=== PATIENT | female | born 1985 | race Caucasian/White ===

== ENCOUNTER 2020-06-27 14:58 | Outpatient (REF) | payer OTHER, SELFPAY | END 2020-06-27 14:59 | disposition home or self-care (01) | LOC: HO.HMGCLDS 14:58 | PROVIDERS: PCP Internal Medicine; Visit Provider Internal Medicine | DX: Z20.828 Contact with and (suspected) exposure to other viral communicable diseases (principal) | CPT/HCPCS: C9803; U0003 ==

== ENCOUNTER 2020-07-24 15:26 | Outpatient (REF) | payer OTHER, SELFPAY | END 2020-07-24 15:27 | disposition home or self-care (01) | LOC: HO.LAB 15:26 | PROVIDERS: Visit Provider Internal Medicine | DX: Z20.828 Contact with and (suspected) exposure to other viral communicable diseases (principal) | CPT/HCPCS: C9803; U0003 ==

== ENCOUNTER 2020-12-04 11:26 | Outpatient (REF) | payer OTHER, SELFPAY ==
[2020-12-05 03:36] LABS: CT PCR NOT DETECTED (Not Detect.); NG PCR NOT DETECTED (Not Detect.)
[2020-12-11 03:52] LABS: HPV mRNA E6/E7 rflx Not Detected (Not Detected)
== END 2020-12-04 11:27 | disposition home or self-care (01) ==
LOC: HO.LAB 11:26
PROVIDERS: Visit Provider Advanced Practice Midwife
DX: Z01.419 Encounter for gynecological examination (general) (routine) without abnormal findings (principal); Z11.3 Encounter for screening for infections with a predominantly sexual mode of transmission; Z11.51 Encounter for screening for human papillomavirus (HPV)
CPT/HCPCS: 87491; 87591; 87624; 88142

== ENCOUNTER 2020-12-23 09:33 | Emergency (ER) | payer OTHER, SELFPAY ==
--- NOTE | ~2020-12-23 | US_ITS ---
EXAMINATION: US ABDOMEN LIMITED CLINICAL INFORMATION: Abdominal pain. Possible gallbladder disease. COMPARISON: None TECHNIQUE: Real-time imaging of the right upper quadrant abdominal viscera. FINDINGS: PANCREAS: Obscured by bowel gas and not imaged. LIVER: Normal in size and smooth in contour. Hepatic parenchymal echogenicity is within limits of normal and homogeneous. There is no focal hepatic parenchymal lesion. No intrahepatic biliary ductal dilatation. Color Doppler shows portal flow towards the liver. GALLBLADDER: There are specular echoes in the region of the gallbladder fossa with strong posterior acoustic shadowing suggesting gallstone filled gallbladder. Short portion anterior gallbladder wall partially visualized and within normal caliber. Otherwise, gallbladder is not identified due to the shadowing. COMMON BILE DUCT: Normal in caliber measuring 0.3 cm in diameter. RIGHT KIDNEY: Normal. No hydronephrosis. No renal calculi or focal parenchymal lesions. The kidney measures 10.1 cm in maximum dimension. FREE FLUID: None. US/US abdomen limited IMPRESSION: 1. Specular echoes in region of gallbladder fossa with strong posterior acoustic shadowing suggesting gallstones filled gallbladder. 2. No intrahepatic or extrahepatic ductal dilatation. 3. Unremarkable right kidney. 4. Pancreas obscured by bowel gas.
[2020-12-23 10:05] VITALS: BP 125/76; PULSE 72; RESP 13; TEMP 36.6; O2SAT 99; BMI 29.9
--- NOTE | 2020-12-23 10:30 | ED.ABDPAIN ---
HPI - Abdominal Pain General Chief Complaint: Abdominal Pain Stated Complaint: abd pain Time Seen by Provider: 12/23/20 10:28 Source: patient Mode of arrival: ambulatory Limitations: no limitations History of Present Illness HPI narrative: 35-year-old female came in for evaluation of abdominal pain. Pain started yesterday afternoon after ate at the restaurant with her friend, pain is localized to the upper abdomen, patient thinks that the pain is related to the food that she ate at the restaurant because the pain started shortly after. Describes the pain as constant moderate 7/10, sharp in character, did not try anything to make it better or worse, associated with nausea but no vomiting, patient had 1 time loose stool bowel movement but no marcus diarrhea, decreased p.o. intake, no other sick contacts, patient had no history of similar abdominal pain. Patient known to have history of gallbladder stone that she declined surgery for it. No dysuria, no frequency urination, no fever, no chills. No vaginal discharge. Related Data Home Medications Medication Instructions Recorded Confirmed buspirone 5 mg tablet 5 mg PO BID 06/27/20 12/04/20 Previous Rx's Medication Instructions Recorded bupropion HCl 150 mg 24 hr tablet, 150 mg PO QAM #90 tab 07/08/20 extended release omeprazole magnesium [Prilosec OTC] 20 mg PO BID #30 tab 12/23/20 Allergies Allergy/AdvReac Type Severity Reaction Status Date / Time No Known Allergies Allergy Verified 12/04/20 11:44 [No Known Allergies*] Review of Systems Review of Systems All other systems are reviewed and are negative Constitutional: Reports as per HPI and Reports no additional constitutional complaints Eyes: Reports as per HPI and Reports no additional eye complaints Reports system reviewed and no additional complaints, except as documented Cardiovascular: Reports as per HPI and Reports no additional cardiovascular complaints Respiratory: Reports as per HPI and Reports no additional respiratory complaints Gastrointestinal: Reports as per HPI and Reports no additional gastrointestinal complaints Genitourinary: Reports no additional female genitourinary complaints Musculoskeletal: Reports no additional musculoskeletal complaints Skin/Breast: Reports system reviewed and no additional complaints, except as docu Psychiatric: Reports no additional psychiatric complaints Endocrine: Reports no additional endocrine complaints Hematologic/Lymphatic: Reports no additional hematologic/lymphatic complaints Allergic/Immunologic: Reports no additional allergic/immunologic complaints Reports system reviewed and no additional complaints, except as documented and Reports Abnormal speech present Physical Exam Vital Signs: Vital Signs: Last Vital Signs Temp 98 F 12/23/20 10:05 Pulse 72 12/23/20 10:05 Resp 13 12/23/20 10:05 BP 125/76 12/23/20 10:05 Pulse Ox 99 12/23/20 10:05 Body Mass Index 29.9 Vital signs have been reviewed as appeared to be correct. Blood pressure normal. Heart rate normal. Respiration rate normal. Temperature normal. Oxygen saturation normal. Appearance: Alert. Oriented X3. No acute distress. Head: Normal external exam. Normocephalic. Atraumatic. No Cardenas signs noted. No raccoon eyes noted Eyes: PERRLA. EOMI. Conjunctiva and sclera normal. Eyelids normal. ENT: TM's Normal. Pharynx normal. Uvula midline. Moist mucous membranes. No trismus noted. No drooling noted. No muffled voice noted. Neck: Normal inspection. Neck supple. FROM. No adenopathy. Thyroid Normal. No meningeal signs. No neck mass noted. CVS: Normal heart rate and rhythm. Heart sound normal. No murmurs noted. Pulses normal throughout. Respiratory: No respiratory distress. Painless inspiration. Breath sounds normal. No wheezes/rales/rhonchi noted. Chest nontender. No accessory muscle usage noted or decreased air movement noted. Abdomen: Soft, obese, right upper quadrant/epigastric tenderness, no rebound tenderness, no guarding. Bowel sounds normal in all 4 quadrants. No distention noted. No organomegaly noted. No visible injury noted. Back: No CVA tenderness. Full range of motion noted. Skin: Skin warm and dry. Normal skin color. Normal skin turgor. No rashes/lesions/lacerations noted. Extremities: No lower extremity edema. Extremities exhibit normal range of motion. Extremities nontender. Neuro: Oriented X 3. No motor deficit. No sensory deficit. Reflexes normal. Course Course Course Narrative: Assessment and plan. 35-year-old female came in with upper epigastric/right upper abdominal pain after ate outside at a restaurant, mild nausea, and mild loose stool with no marcus diarrhea, has leukocytosis, ultrasound of upper abdomen showed cholelithiasis (patient is known to have history of gallbladder stones). Patient feels better with the pain, and nausea asking for food but patient would rather to go home then p.o. challenge. As discussed with the patient we will start the patient on Prilosec for possible food related gastritis, will also send the patient for GI outpatient consultation and surgical consultation. MDM - Abdominal Pain Lab Data Attestation: I reviewed the patient's lab results. Result diagrams: 12/23/20 10:38 12/23/20 10:38 Labs: Lab Results 12/23/20 12/23/20 12/23/20 Range/Units 10:38 10:38 10:38 WBC 12.9 H (4.8-10.8) X10*3/uL RBC 4.88 (4.20-5.50) X10*6/uL Hgb 14.6 (12.0-16.0) g/dl Hct 44.5 (37-47) % MCV 91.2 (80-98) fL MCH 29.9 (27.0-33.0) pg MCHC 32.8 (31.0-35.0) g/dl RDW 12.9 (11.0-16.0) % Plt Count 264 (160-400) X10*3/uL MPV 9.6 (9.4-12.3) fL Immature Gran % (Auto) 0.3 (0.0-0.4) % Neut % (Auto) 77.4 H (45-73) % Lymph % (Auto) 16.1 L (20-40) % [place] % (Auto) 4.9 (2-11) % Eos % (Auto) 1.1 (0-4) % Baso % (Auto) 0.2 (0-2) % Lymph # (Auto) 2.1 (1.2-4.9) X10*3/uL [place] # (Auto) 0.6 (0.1-1.2) X10*3/uL Eos # (Auto) 0.1 (0.0-0.4) X10*3/uL Baso # (Auto) 0.0 (0.0-0.2) X10*3/uL Abs Immat Gran (auto) 0.04 H (0.00-0.03) X10*3/uL Absolute Neuts (auto) 10.0 H (2.0-8.3) X10*3/uL Absolute Nucleated RBC 0.000 (0.0-0.012) X10*3/uL Nucleated RBC % (auto) 0.0 (0.0-0.2) /100WBC Sodium 140 (135-145) mmol/L Potassium 4.1 (3.3-5.1) mmol/L Chloride 108 (96-108) mmol/L Carbon Dioxide 25 (22-29) mmol/L Anion Gap 11 L (12-20) BUN 7 L (9-16) mg/dL Creatinine 0.81 (0.5-1.4) mg/dL Estim Creat Clear Calc 125.9 Estimated GFR > 60 Random Glucose 94 (60-115) mg/dL Calcium 8.9 (8.4-10.2) mg/dL Total Bilirubin 0.7 (0.0-1.0) mg/dL Direct Bilirubin 0.3 (0.0-0.5) mg/dL AST 13 (5-31) U/L ALT 14 (0-31) U/L Alkaline Phosphatase 57 (39-117) U/L Total Protein 6.7 (6.5-8.0) g/dL Albumin 4.0 (3.5-5.0) g/dL Lipase 7 L (8-78) U/L Urine Color YELLOW Urine Appearance HAZY Urine pH 6.0 (5.0-8.0) Ur Specific [place] >= 1.030 H (1.005-1.025) Urine Protein NEG (NEG-TRACE) MG/DL Urine Glucose (UA) NEG (NEG) MG/DL Urine Ketones NEG (NEG) MG/DL Urine Blood 1+ H (NEG) Urine Nitrite NEG (NEG) Ur Leukocyte Esterase NEG (NEG) Urine RBC 1-4 (0) /HPF Urine WBC 0 (0-4) /HPF Ur Squamous Epith Cells 1+ /LPF Urine Bacteria NONE /LPF Urine Mucus 1+ /LPF Urine Test (NEGATIVE) 12/23/20 Range/Units 10:38 WBC (4.8-10.8) X10*3/uL RBC (4.20-5.50) X10*6/uL Hgb (12.0-16.0) g/dl Hct (37-47) % MCV (80-98) fL MCH (27.0-33.0) pg MCHC (31.0-35.0) g/dl RDW (11.0-16.0) % Plt Count (160-400) X10*3/uL MPV (9.4-12.3) fL Immature Gran % (Auto) (0.0-0.4) % Neut % (Auto) (45-73) % Lymph % (Auto) (20-40) % [place] % (Auto) (2-11) % Eos % (Auto) (0-4) % Baso % (Auto) (0-2) % Lymph # (Auto) (1.2-4.9) X10*3/uL [place] # (Auto) (0.1-1.2) X10*3/uL Eos # (Auto) (0.0-0.4) X10*3/uL Baso # (Auto) (0.0-0.2) X10*3/uL Abs Immat Gran (auto) (0.00-0.03) X10*3/uL Absolute Neuts (auto) (2.0-8.3) X10*3/uL Absolute Nucleated RBC (0.0-0.012) X10*3/uL Nucleated RBC % (auto) (0.0-0.2) /100WBC Sodium (135-145) mmol/L Potassium (3.3-5.1) mmol/L Chloride (96-108) mmol/L Carbon Dioxide (22-29) mmol/L Anion Gap (12-20) BUN (9-16) mg/dL Creatinine (0.5-1.4) mg/dL Estim Creat Clear Calc Estimated GFR Random Glucose (60-115) mg/dL Calcium (8.4-10.2) mg/dL Total Bilirubin (0.0-1.0) mg/dL Direct Bilirubin (0.0-0.5) mg/dL AST (5-31) U/L ALT (0-31) U/L Alkaline Phosphatase (39-117) U/L Total Protein (6.5-8.0) g/dL Albumin (3.5-5.0) g/dL Lipase (8-78) U/L Urine Color Urine Appearance Urine pH (5.0-8.0) Ur Specific [place] (1.005-1.025) Urine Protein (NEG-TRACE) MG/DL Urine Glucose (UA) (NEG) MG/DL Urine Ketones (NEG) MG/DL Urine Blood (NEG) Urine Nitrite (NEG) Ur Leukocyte Esterase (NEG) Urine RBC (0) /HPF Urine WBC (0-4) /HPF Ur Squamous Epith Cells /LPF Urine Bacteria /LPF Urine Mucus /LPF Urine Test NEGATIVE (NEGATIVE) Imaging Data US - abdomen: Radiologist's impression: . Specular echoes in region of gallbladder fossa with strong posterior acoustic shadowing suggesting gallstones filled gallbladder. 2. No intrahepatic or extrahepatic ductal dilatation. 3. Unremarkable right kidney. 4. Pancreas obscured by bowel gas. Discharge Plan Discharge Clinical Impression: Gastritis Qualifiers: Gastritis type: unspecified gastritis Chronicity: acute Gastritis bleeding: without bleeding Qualified Code(s): K29.00 - Acute gastritis without bleeding Cholelithiasis Qualifiers: Cholelithiasis location: gallbladder Cholecystitis presence: without cholecystitis Biliary obstruction: without biliary obstruction Qualified Code(s): K80.20 - Calculus of gallbladder without cholecystitis without obstruction Patient Disposition: Home, Self-Care Instructions: Gastritis (ED), Gallstones (ED) Prescriptions: New omeprazole magnesium [Prilosec OTC] 20 mg tablet,delayed release (DR/EC) 20 mg PO BID Qty: 30 RF: 0 No Action bupropion HCl [Wellbutrin XL] 150 mg tablet extended release 24 hr 150 mg PO QAM Qty: 90 RF: 1 buspirone 5 mg tablet 5 mg PO BID RF: 0 Referrals: Mine Chen MD [Primary Care Provider] - 2 days Andrez Mancilla MD [Physician] - 2 days Farzad Parks MD [Physician] - 2 days [facility] Past Medical History Medical History Annual physical exam Cervical cancer screening Depression with anxiety Eczema Gallstones IUD check up depression Surgical History No pertinent past surgical history Family History Family History Father Bladder cancer Cancer of prostate Mother Breast cancer Sister Cervical cancer Social History Social History Household Members Other:: 2 children 11 and 5-year-old, 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 a day Alcohol intake: current Alcohol intake frequency: a few times a month Smoking Status: Current every day smoker Advance Directives: No Advance Directives Information Provided: No Patient : No Gender identity: female
[2020-12-23 10:42] LABS: MANUAL DIFF FLAG NO
[2020-12-23] MEDS: Famotidine/PF 20 MG/2 ML VIAL IVPUSH (10:43)
[2020-12-23] MEDS: Magnesium Hydrox/Alum Hydrox 30 ML ORAL.SUSP PO (10:43)
[2020-12-23] MEDS: ondansetron HCL 4 MG/2 ML VIAL IVPUSH (10:43)
[2020-12-23 10:46] LABS: Basophils Percent Auto 0.2 % (0-2); Eosinophils Absolute Auto 0.1 X10*3/uL (0.0-0.4); Eosinophils Percent Auto 1.1 % (0-4); Hematocrit 44.5 % (37-47); Hemoglobin 14.6 g/dl (12.0-16.0); Imm Gran Abs Auto 0.04 X10*3/uL (0.00-0.03); Imm Gran Pct Auto 0.3 % (0.0-0.4); Lymphocytes Absolute Auto 2.1 X10*3/uL (1.2-4.9); Lymphocytes Percent Auto 16.1 % (20-40); Mean Corpuscular HGB Conc 32.8 g/dl (31.0-35.0); Mean Corpuscular Hemoglobin 29.9 pg (27.0-33.0); Mean Corpuscular Volume 91.2 fL (80-98); Mean Platelet Volume 9.6 fL (9.4-12.3); Monocytes Absolute Auto 0.6 X10*3/uL (0.1-1.2); Monocytes Percent Auto 4.9 % (2-11); Neutrophils Percent Auto 77.4 % (45-73); Platelet Count 264 X10*3/uL (160-400); Red Blood Count 4.88 X10*6/uL (4.20-5.50); Red Cell Distribution Width 12.9 % (11.0-16.0); White Blood Count 12.9 X10*3/uL (4.8-10.8)
[2020-12-23] MEDS: 0.9 % Sodium Chloride 1,000 ML 999 ML IVCONT (10:46)
[2020-12-23 10:48] LABS: Glucose Urine UA NEG (NEG); Leukocyte Esterase Urine NEG (NEG); Nitrite Urine NEG (NEG); Specific Gravity - Urine >= 1.030 (1.005-1.025); Urine Blood 1+ (NEG); Urine Ketones NEG (NEG); Urine Protein NEG (NEG-TRACE)
[2020-12-23 10:49] LABS: Appearance Urine HAZY; Color Urine YELLOW
[2020-12-23 10:50] LABS: UPreg QC Valid YES; Urine Pregnancy NEGATIVE (NEGATIVE)
[2020-12-23 11:08] LABS: Mucus Urine 1+ /LPF; Squamous Epithelial Cell Urine 1+ /LPF; WBC Urine 0 /HPF (0-4)
[2020-12-23 11:15] LABS: Alanine Aminotransferase 14 U/L (0-31); Alkaline Phosphatase 57 U/L (39-117); Anion Gap 11 (12-20); Aspartate Amino Transferase 13 U/L (5-31); Bilirubin Direct 0.3 mg/dL (0.0-0.5); Bilirubin Total 0.7 mg/dL (0.0-1.0); Blood Urea Nitrogen 7 mg/dL (9-16); Calcium 8.9 mg/dL (8.4-10.2); Carbon Dioxide 25 mmol/L (22-29); Chloride 108 mmol/L (96-108); Creatinine Clr Calc Pharmacy 125.9; Estimated Glomerular Filt Rate > 60; Glucose Random 94 mg/dL (60-115); Lipase 7 U/L (8-78); Potassium 4.1 mmol/L (3.3-5.1); Sodium 140 mmol/L (135-145); Total Protein 6.7 g/dL (6.5-8.0)
[2020-12-23 14:15] VITALS: BP 132/72; PULSE 77; RESP 17; O2SAT 98
== END 2020-12-23 14:19 | disposition home or self-care (01) ==
PROVIDERS: Emergency Provider Emergency Medicine; PCP Internal Medicine
DX: K80.20 Calculus of gallbladder without cholecystitis without obstruction (principal); R10.10 Upper abdominal pain, unspecified; R11.0 Nausea; F17.200 Nicotine dependence, unspecified, uncomplicated; Z71.6 Tobacco abuse counseling
CPT/HCPCS: 36415; 76705; 80048; 80076; 81001; 81025; 83690; 85025; 96365; 96375; 99283; 99284; J2405

== ENCOUNTER → 2020-12-31 14:42 | Outpatient (BNVA) | payer OTHER, SELFPAY | PROVIDERS: PCP Internal Medicine; Referring Provider Internal Medicine; Visit Provider Surgery | DX: K80.00 Calculus of gallbladder with acute cholecystitis without obstruction (principal) | CPT/HCPCS: 99202 ==

== ENCOUNTER 2021-01-10 12:39 | Outpatient (REF) | payer OTHER, SELFPAY ==
--- NOTE | ~2021-01-10 | MM_ITS ---
EXAMINATION: MM SCREENING DIGITAL BREAST TOMOSYNTHESIS, BILATERAL CLINICAL INFORMATION: Screening. Asymptomatic. Family history breast cancer, mother. Patient age 35. No prior breast imaging. The lifetime risk of breast cancer based on the Tyrer-Cuzick Model is 27%. COMPARISON: None (current study represents initial baseline exam). TECHNIQUE: Digital breast tomosynthesis is performed in both the craniocaudal and mediolateral oblique views along with computer-aided detection (CAD). Synthesized 2D images are generated from the tomosynthesis. FINDINGS: There are scattered areas of fibroglandular density (ACR BI-RADS breast composition Category b). The right breast is unremarkable. There is no significant mass or architectural abnormality. Neither breast shows abnormal calcifications. The axilla and skin contours are unremarkable. The left CC view has focal parenchymal asymmetry posterior medial breast without correlate on MLO view. As this represents initial baseline exam, patient will be recalled for additional views to fully characterize. MM/MM tomosynthesis screening BI IMPRESSION: 1. Left: Focal parenchymal asymmetry posterior medial breast on CC view without correlate on MLO, likely summation artifact. 2. Right: No mammographic evidence of malignancy. ASSESSMENT: BI-RADS 0: Incomplete - Need Additional Imaging Evaluation RECOMMENDATION: 1. Additional views of the left breast (3-D rolled CC x2). 2. Targeted ultrasound if warranted after review of the additional views. 3. Radiology department staff will contact the patient for additional imaging. 4. The lifetime risk of breast cancer based on the Tyrer-Cuzick Model is 27%. Additional annual adjunct screening with breast MRI may be of benefit in women with a risk score of 20% or greater. This patient's information was entered into a reminder system with a target due date for their next mammogram.
== END 2021-01-10 12:40 | disposition home or self-care (01) ==
LOC: HO.MAMMO 12:39
PROVIDERS: Visit Provider Internal Medicine
DX: Z12.31 Encounter for screening mammogram for malignant neoplasm of breast (principal)
CPT/HCPCS: 77063; 77067

== ENCOUNTER 2021-01-14 08:48 | Outpatient (REF) | payer OTHER, SELFPAY ==
--- NOTE | ~2021-01-14 | MM_ITS ---
EXAMINATION: MM DIAGNOSTIC DIGITAL BREAST TOMOSYNTHESIS, LEFT US DIAGNOSTIC ULTRASOUND BREAST, LEFT CLINICAL INFORMATION: 35-year-old, recall from initial baseline screening for left parenchymal asymmetry posterior medial breast on CC view. Family history breast cancer, mother diagnosed at age 46. COMPARISON: Mammography: 11/26/2020 (baseline). TECHNIQUE: Digital breast tomosynthesis is performed. 2D images are generated from the tomosynthesis. The following views are obtained: 3-D rolled CC x2. Ultrasound left breast is targeted to the 6:00 through 10:00 position. Grayscale imaging and color Doppler are performed without and with harmonics. FINDINGS: There are scattered areas of fibroglandular density (ACR BI-RADS breast composition Category b). The parenchymal asymmetry is less conspicuous on the rolled medial projection and resolved on the rolled lateral projection. There is no correlate on the screening MLO view. Ultrasound demonstrates no cystic or solid mass or architectural abnormality. No focal duct ectasia. Results and high risk screening options are discussed with the patient at time of visit. Short interval six-month follow-up left mammography will be recommended to confirm stability of parenchymal pattern. MM/MM tomosynthesis added views L IMPRESSION: 1. Additional views shows no mass or architectural abnormality. 2. Unremarkable targeted left breast ultrasound. ASSESSMENT: BI-RADS 3: Probably Benign RECOMMENDATION: Diagnostic left mammography in 6 months. This patient's information was entered into a reminder system with a target due date for their next mammogram.
== END 2021-01-14 08:49 | disposition home or self-care (01) ==
LOC: HO.MAMMO 08:48
PROVIDERS: Visit Provider Internal Medicine
DX: N64.89 Other specified disorders of breast (principal)
CPT/HCPCS: 76642; 77061; 77065

== ENCOUNTER 2021-01-20 06:09 | Day surgery (SDC) | payer OTHER, SELFPAY ==
[2021-01-15 10:24] VITALS: BMI 28.7
--- NOTE | 2021-01-16 10:40 | HO.ANESPROP2 ---
Documented by User: Emmy Garcia 01/16/21 10:41 HPI - Anesthesia Eval Consult details Narrative: 35yo F for Cholecystectomy Laparoscopic, Poss Open PMFSH Active Problems Active Problems: All Active Problems (Updated 01/15/21 @ 10:28 by Yamila Hoyt) Acute sinusitis (Acute) Annual physical exam (Acute) IUD check up (Acute) Women's annual routine gynecological examination (Acute) Abdominal pain (Acute) Acute cholecystitis due to biliary calculus (Acute) Eczema (Acute) Depression with anxiety (Acute) Past Medical History Medical History (Updated 01/20/21 @ 07:54 by Abbie Warner) Cervical cancer screening COVID-19 vaccine series completed Depression with anxiety Eczema Environmental allergies Gallstones depression Family History Family History Father Bladder cancer Cancer of prostate Mother Breast cancer Sister Cervical cancer Surgical History Surgical History History of wisdom tooth extraction No pertinent past surgical history Social History Social History Household Members Other:: 2 children 11 and 5-year-old, 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 a day Are you a primary child caregiver to a significant other at home: No Do you presently have visiting nurse or other home services: No Alcohol intake: current Alcohol intake frequency: a few times a month Patient Tobacco Use Status: Current everyday Tobacco user Tobacco use type: Cigarette Cigarette Packs Per Day: 0.25 Cigarettes Per Day: 5.0 Years Smoked: 20+ Smoked in Last 30 Days: Yes Patient Interested in Nicotine Replacement: No Patient Given Instructions on How to Stop Smoking: Yes Date Education Initiated: 01/15/21 Use of substances other than those prescribed or required for medical reasons: Yes Substance Use Frequency: Weekly Have you been hit, kicked, punched, or otherwise hurt by someone within the past year? If so, by whom?: No Are you DNR?: No Advance Directives: No Advance Directives Information Provided: No Advance Directives on File: No Recently lost weight without trying: No Eating poorly because of decreased appetite: No Nutrition Risks: No Nutritional Risk Gender identity: female Meds Allergies Allergy/AdvReac Type Severity Reaction Status Date / Time No Known Allergies Allergy Verified 01/15/21 10:10 [No Known Allergies*] Home Medications Medication Instructions Recorded Confirmed Last Taken Type buspirone 5 mg tablet 5 mg PO BID 06/27/20 01/15/21 Unknown History Exam Exam Date and Time: January 16, 2021 1040 Height,Weight and Vital Signs: Height 6 ft Weight 96.162 kg Pertinent Lab Results Pertinent Lab Results: Laboratory Tests 12/23/20 12/23/20 10:38 10:38 WBC 12.9 H Hgb 14.6 Hct 44.5 Plt Count 264 Sodium 140 Potassium 4.1 Chloride 108 Carbon Dioxide 25 BUN 7 L Creatinine 0.81 Assessment and Plan Assessment Anesthesia Assessment: Chart Reviewed Documented by User: Abbie Warner 01/20/21 08:01 [facility] Past Medical History Medical History (Updated 01/20/21 @ 07:54 by Abbie Warner) Cervical cancer screening COVID-19 vaccine series completed Depression with anxiety Eczema Environmental allergies Gallstones depression Family History Family History Father Bladder cancer Cancer of prostate Mother Breast cancer Sister Cervical cancer Family history of problems with anesthesia: No Surgical History Surgical History History of wisdom tooth extraction No pertinent past surgical history History of Problems with Anesthesia: No Social History Social History Household Members Other:: 2 children 11 and 5-year-old, 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 a day Are you a primary child caregiver to a significant other at home: No Do you presently have visiting nurse or other home services: No Alcohol intake: current Alcohol intake frequency: a few times a month Patient Tobacco Use Status: Current everyday Tobacco user Tobacco use type: Cigarette Cigarette Packs Per Day: 0.25 Cigarettes Per Day: 5.0 Years Smoked: 20+ Smoked in Last 30 Days: Yes Patient Interested in Nicotine Replacement: No Patient Given Instructions on How to Stop Smoking: Yes Date Education Initiated: 01/15/21 Use of substances other than those prescribed or required for medical reasons: Yes Substance Use Frequency: Weekly Have you been hit, kicked, punched, or otherwise hurt by someone within the past year? If so, by whom?: No Are you DNR?: No Advance Directives: No Advance Directives Information Provided: No Advance Directives on File: No Recently lost weight without trying: No Eating poorly because of decreased appetite: No Nutrition Risks: No Nutritional Risk Gender identity: female Meds Allergies Allergy/AdvReac Type Severity Reaction Status Date / Time No Known Allergies Allergy Verified 01/15/21 10:10 [No Known Allergies*] Home Medications Medication Instructions Recorded Confirmed Last Taken Type buspirone 5 mg tablet 5 mg PO BID 06/27/20 01/15/21 Unknown History Exam Height,Weight and Vital Signs: Vital Signs Temp Pulse Resp BP Pulse Ox 01/20/21 06:46 97.4 F 67 16 111/73 98 Narrative Narrative: Lab Results 01/20/21 Range/Units 06:20 Urine Test NEGATIVE (NEGATIVE) Airway Mallampati Class: II TM Dist: >3cm Neck ROM: Full Loose/Missing/Broken Teeth: Yes (Some missing. Extractions. ?Chipped top front. White spot on tooth front top) Heart: RRR Lungs: CTAB Assessment and Plan Assessment Anesthesia Assessment: Anesthesia Plan Discussed and Chart Reviewed Final Anesthetic Review NPO: Yes ASA Class: II Final Preanesthetic Review: No Changes in Pt Med Stat, Meds/Allgs Chart Reviewed, Consent Obtained/Reviewed and Anes Risks/Benef Reviewed Patient Risk: Low Procedure Risk: Intermediate Assessment/Block/Sedation in SS: Assess/Block/Sedation-SS Anesthetic Plan Anesthetic Plan: GA Disposition: Standard PACU
[2021-01-20] VITALS (11 sets, daily range): BP systolic 111–134; BP diastolic 66–80; PULSE 52–78; RESP 16–18; TEMP 36.3–36.7; O2SAT 16–100
[2021-01-20 06:26] LABS: UPreg QC Valid YES; Urine Pregnancy NEGATIVE (NEGATIVE)
[2021-01-20] MEDS: Acetaminophen 325 MG TABLET 650 MG PO (06:40)
[2021-01-20] MEDS: Lactated Ringers 1,000 ML 100 ML IVCONT (06:50)
--- NOTE | 2021-01-20 07:13 | MHC.SHP ---
Pre-Procedural Eval Section A The patient is an INPATIENT: No Changes since office visit: Yes Patient answered all questions; No Cold of Flu in the past 2 weeks, No New Medical Problems and No Changes in Medication The History & Physical has been completed within 30 days and I have reviewed it.: Yes Section B Chief Complaint: acute cholecystitis due to biliary calculus Allergies: Allergies Allergy/AdvReac Type Severity Reaction Status Date / Time No Known Allergies Allergy Verified 01/15/21 10:10 [No Known Allergies*] Plan Diagnosis/Plan: Unchanged I have reviewed the history and physical and performed a pertinent physical examination on my patient. No changes have occurred unless specified.
--- NOTE | 2021-01-20 08:52 | P.OP_ITS ---
Operative Note Operative Note Date of Service: 01/20/21 Narrative: Preoperative diagnosis: Acute cholecystitis, cholelithiasis Postoperative diagnosis: Same Procedure: Laparoscopic cholecystectomy Surgeon: Farzad Parks MD Manager Of Security: No physician Anesthesia: General endotracheal Indications for procedure: 35-year-old female presenting with history of abdominal pain in the right upper quadrant since the of her last child. Patient was found to have a gallbladder filled with gallstones on ultrasound. Patient presents today for laparoscopic or possible open cholecystectomy. Operative findings: Gallbladder filled with multiple small and large gallstones. Specimen: Gallbladder Estimated blood loss: 5 mL Complications: None Procedure details: Patient was brought to the OR and placed in a supine position. After administering general anesthesia the patient's abdomen was prepped with ChloraPrep and draped in a sterile fashion. Local anesthesia consisting of 0.25% Sensorcaine with epinephrine was infiltrated in a periumbilical region. A 5 mm incision was made above the umbilicus in a transverse fashion. The Veress needle was then inserted while elevating abdominal cavity with towel clips. After positive drop test the abdomen was insufflated to a pressure of 15 mm of mercury. The Veress needle was then removed and a 5 mm trocar inserted. The camera was inserted in the abdomen explored. A 12 mm trocar was then placed in the epigastrium and two 5 mm trocars placed in the right upper quadrant. The patient was placed in reverse Trendelenburg positioning and rotated to the left. The gallbladder was grasped with the fundus and retracted cephalad. The infundibulum was then grasped and retracted away from the liver bed. The Dolphin dissecter was then used to dissect the peritoneum off the infundibulum to reveal the junction with the cystic duct. Cystic artery was noted slightly medial and posterior to the cystic duct. After obtaining a critical view the cystic duct was doubly clipped and divided. The cystic artery was then doubly clipped and divided. The gallbladder was then dissected off the liver bed using electrocautery with an L hook. Hemostasis was assured all times using the electrocautery. When the gallbladder is completely dissected off the liver bed was placed in an Endo-Catch bag and brought out through the epigastric incision. The gallbladder was sent to pathology for further examination. The abdomen was then re-examined. The liver bed was irrigated and suctioned dry. No bleeding or bile leak could be identified. CO2 was then evacuated and all trocars removed. Skin was closed in all incisions using a subcuticular 4 0 Polysorb suture. Sterile dressings consisting of Steri-Strips, 2 x 2 gauze, and Tegaderm were then applied. The patient tolerated the procedure well. Sponge instrument and needle counts reported as correct. The patient was transferred to PACU in stable condition.
[2021-01-20] MEDS: oxyCODONE HCl Immed Release 5 MG TABLET PO (09:25)
[2021-01-20] MEDS: HYDROmorphone HCl 0.5 MG/0.5 ML SYRINGE 0.25 MG IVPUSH (09:31)
[2021-01-20] MEDS: ondansetron HCL 4 MG/2 ML VIAL IVPUSH (09:53)
== END 2021-01-20 11:46 | disposition home or self-care (01) ==
PROVIDERS: Nurse Practitioner; PCP Internal Medicine; Visit Provider Surgery
PROC: 0FT44ZZ Resection of Gallbladder, Percutaneous Endoscopic Approach (ICD-10-PCS; CPT 47562; principal; 2021-01-20 07:30)
DX: K80.00 Calculus of gallbladder with acute cholecystitis without obstruction (principal)
CPT/HCPCS: 47562; 81025; 88304; J1100; J1170; J1885; J2250; J2405; J3010

== ENCOUNTER → 2021-01-28 13:44 | Outpatient (BNVA) | payer OTHER, SELFPAY | PROVIDERS: PCP Internal Medicine; Referring Provider Internal Medicine; Visit Provider Surgery | DX: Z48.815 Encounter for surgical aftercare following surgery on the digestive system (principal); Z87.19 Personal history of other diseases of the digestive system | CPT/HCPCS: 99212 ==

== ENCOUNTER → 2021-06-27 14:19 | Outpatient (BNVA) | payer OTHER, SELFPAY | PROVIDERS: PCP Internal Medicine; Visit Provider Advanced Practice Midwife | DX: Z30.433 Encounter for removal and reinsertion of intrauterine contraceptive device (principal); F41.8 Other specified anxiety disorders; F17.210 Nicotine dependence, cigarettes, uncomplicated; Z80.52 Family history of malignant neoplasm of bladder; Z80.3 Family history of malignant neoplasm of breast; Z80.42 Family history of malignant neoplasm of prostate; Z91.09 Other allergy status, other than to drugs and biological substances | CPT/HCPCS: 58300; 58301; 81025; 99212; J7298 ==

== ENCOUNTER 2021-08-04 08:47 | Outpatient (REF) | payer OTHER, SELFPAY ==
--- NOTE | ~2021-08-04 | MM_ITS ---
EXAMINATION: MM DIAGNOSTIC DIGITAL BREAST TOMOSYNTHESIS, LEFT CLINICAL INFORMATION: Short interval six-month follow-up probable benign asymmetric density posterior medial left breast initially noted at baseline screening. Family history breast cancer, mother diagnosed at age 46. The lifetime risk of breast cancer based on the Tyrer-Cuzick Model is 27%. COMPARISON: Mammography: 01/14/2021, 01/10/2021, targeted left breast ultrasound 01/14/2021 TECHNIQUE: Digital breast tomosynthesis is performed in both the craniocaudal and mediolateral oblique views along with computer-aided detection (CAD). Synthesized 2D images are generated from the tomosynthesis. FINDINGS: There are scattered areas of fibroglandular density (ACR BI-RADS breast composition Category b). Parenchymal pattern is similar to prior studies. Parenchymal asymmetry posterior medial left breast on CC view is stable. There is no developing density or interval mass or architectural abnormality. No abnormal calcifications. Left breast will be reassessed again at time of annual bilateral exam, due in 6 months. Results are provided to the patient at time of visit by the technologist. MM/MM tomosynthesis diagnostic LT IMPRESSION: Parenchymal pattern is similar to prior exams. No developing density. ASSESSMENT: BI-RADS 3: Probably Benign RECOMMENDATION: Diagnostic mammography at time of annual bilateral exam, due in 6 months. This patient's information was entered into a reminder system with a target due date for their next mammogram.
== END 2021-08-04 08:48 | disposition home or self-care (01) ==
LOC: HO.MAMMO 08:47
PROVIDERS: Visit Provider Internal Medicine
DX: R92.2 Inconclusive mammogram (principal)
CPT/HCPCS: 77061; 77065

== ENCOUNTER 2021-08-25 14:22 | Outpatient (REF) | payer OTHER, SELFPAY ==
[2021-08-25 16:26] LABS: Appearance Urine HAZY; Color Urine YELLOW; Glucose Urine UA NEG (NEG); Leukocyte Esterase Urine 2+ (NEG); Nitrite Urine NEG (NEG); Specific Gravity - Urine 1.025 (1.005-1.025); UACC Culture Trigger YES; Urine Blood TRACE (NEG); Urine Ketones NEG (NEG); Urine Protein TRACE MG/DL (NEG-TRACE)
[2021-08-25 16:39] LABS: Bacteria Urine 1+ /LPF; RBC Urine 0-2 /HPF (0); Squamous Epithelial Cell Urine 2+ /LPF
== END 2021-08-25 14:23 | disposition home or self-care (01) ==
LOC: HO.HMGCLDS 14:22
PROVIDERS: PCP Internal Medicine; Visit Provider Internal Medicine
DX: R30.0 Dysuria (principal)
CPT/HCPCS: 81001; 87086

== ENCOUNTER 2021-08-27 12:14 | Outpatient (REF) | payer OTHER, SELFPAY ==
[2021-08-27 14:13] LABS: Appearance Urine CLOUDY; Color Urine ORANGE; Leukocyte Esterase Urine TRACE (NEG); Nitrite Urine POS (NEG); Specific Gravity - Urine 1.025 (1.005-1.025); Urine Blood TRACE (NEG); Urine Ketones 5 MG/DL (NEG); Urine Protein 2+ MG/DL (NEG-TRACE)
[2021-08-27 14:28] LABS: Bacteria Urine 3+ /LPF; RBC Urine 0-2 /HPF (0); Squamous Epithelial Cell Urine 1+ /LPF
== END 2021-08-27 12:15 | disposition home or self-care (01) ==
LOC: HO.HMGCLDS 12:14
PROVIDERS: Visit Provider Internal Medicine
DX: R30.0 Dysuria (principal)
CPT/HCPCS: 81001; 87086; 87088; 87186

== ENCOUNTER 2022-02-02 12:47 | Outpatient (REF) | payer OTHER, SELFPAY ==
--- NOTE | ~2022-02-02 | MM_ITS ---
EXAMINATION: MM DIAGNOSTIC DIGITAL BREAST TOMOSYNTHESIS, BILATERAL CLINICAL INFORMATION: Due for yearly. Also short interval follow-up probable benign parenchymal asymmetry posterior medial left breast, initially noted at baseline screening. Family history breast cancer, mother at age 46. The lifetime risk of breast cancer based on the Tyrer-Cuzick Model is 29%. COMPARISON: Mammography: 08/04/2021, 01/14/2021, 01/10/2021 (baseline, BI-RADS 0), ultrasound left breast 01/14/2021. TECHNIQUE: Digital breast tomosynthesis is performed in both the craniocaudal and mediolateral oblique views along with computer-aided detection (CAD). Synthesized 2D images are generated from the tomosynthesis. Additional left CC view is provided. FINDINGS: There are scattered areas of fibroglandular density (ACR BI-RADS breast composition Category b). Parenchymal pattern is similar to prior studies and there is no developing density or interval mass or architectural abnormality. No abnormal calcifications. Parenchymal asymmetry posterior upper inner left breast is stable to less conspicuous. The axilla and skin contours are unremarkable. Results are provided to the patient at time of visit by the technologist. MM/MM tomosynthesis diagnostic BI IMPRESSION: -Parenchymal pattern is similar to prior studies. -Benign-appearing parenchymal asymmetry posterior medial left breast stable to decreased. ASSESSMENT: BI-RADS 3: Probably Benign RECOMMENDATION: Diagnostic left mammography in 6 months. This patient's information was entered into a reminder system with a target due date for their next mammogram.
== END 2022-02-02 12:48 | disposition home or self-care (01) ==
LOC: HO.MAMMO 12:47
PROVIDERS: PCP Internal Medicine; Visit Provider Internal Medicine
DX: R92.2 Inconclusive mammogram (principal)
CPT/HCPCS: 77062; 77066

== ENCOUNTER 2022-08-04 14:50 | Outpatient (REF) | payer OTHER, SELFPAY ==
--- NOTE | ~2022-08-04 | MM_ITS ---
EXAMINATION: MM DIAGNOSTIC DIGITAL BREAST TOMOSYNTHESIS, LEFT CLINICAL INFORMATION: Six-month follow-up left breast density. COMPARISON: Mammography: 02/02/2022 and studies dating back to 01/10/2021. TECHNIQUE: Digital breast tomosynthesis is performed in both the craniocaudal and mediolateral oblique views along with computer-aided detection (CAD). Synthesized 2D images are generated from the tomosynthesis. Additional mediolateral oblique spot compression view and full-field 90 degree mediolateral view performed. FINDINGS: The breasts are heterogeneously dense, which may obscure small masses (ACR BI-RADS breast composition Category c). The asymmetric density about the deep medial aspect of the left breast appears similar to previous studies without definite aggressive change. There is also noted to be some dense parenchyma within the deep superior aspect with question nodularity as well as a superior region of question spiculation but for which spot compressions and 90 degree view demonstrated these to appear stable as well. No definite new abnormal dominant mass or suspicious grouping of calcifications identified. Six-month follow-up bilateral mammography suggested. Results are provided to the patient at time of visit by the technologist. MM/MM tomosynthesis diagnostic LT IMPRESSION: There are no significant changes from prior study. ASSESSMENT: BI-RADS 3: Probably Benign. RECOMMENDATION: Diagnostic mammography in 6 months. This patient's information was entered into a reminder system with a target due date for their next mammogram.
== END 2022-08-04 14:51 | disposition home or self-care (01) ==
LOC: HO.MAMMO 14:50
PROVIDERS: Visit Provider Internal Medicine
DX: R92.2 Inconclusive mammogram (principal)
CPT/HCPCS: 77061; 77065

== ENCOUNTER 2022-10-08 08:25 | Outpatient (REF) | payer BC, SELFPAY ==
[2022-10-08 11:32] LABS: MANUAL DIFF FLAG NO
[2022-10-08 11:41] LABS: Basophils Absolute Auto 0.1 X10*3/uL (0.0-0.2); Eosinophils Absolute Auto 0.3 X10*3/uL (0.0-0.4); Hematocrit 45.6 % (37.0-47.0); Imm Gran Abs Auto 0.02 X10*3/uL (0.00-0.03); Imm Gran Pct Auto 0.2 % (0.0-0.4); Lymphocytes Absolute Auto 2.4 X10*3/uL (1.2-4.9); Lymphocytes Percent Auto 25.5 % (20-40); Mean Corpuscular HGB Conc 32.9 g/dl (31.0-35.0); Mean Corpuscular Hemoglobin 30.3 pg (27.0-33.0); Mean Corpuscular Volume 92.1 fL (80.0-98.0); Mean Platelet Volume 10.1 fL (9.4-12.3); Monocytes Absolute Auto 0.6 X10*3/uL (0.1-1.2); Monocytes Percent Auto 6.3 % (2-11); Platelet Count 355 X10*3/uL (160-400); Red Blood Count 4.95 X10*6/uL (4.20-5.50); Red Cell Distribution Width 12.9 % (11.0-16.0); White Blood Count 9.4 X10*3/uL (4.8-10.8)
[2022-10-08 12:11] LABS: Alanine Aminotransferase 14 U/L (0-31); Albumin Level 4.3 g/dL (3.5-5.0); Alkaline Phosphatase 72 U/L (39-117); Anion Gap 11 (12-20); Aspartate Amino Transferase 13 U/L (5-31); Bilirubin Total 1.3 mg/dL (0.0-1.0); Blood Urea Nitrogen 8 mg/dL (9-16); Calcium 8.8 mg/dL (8.4-10.2); Carbon Dioxide 26 mmol/L (22-29); Chloride 107 mmol/L (96-108); Cholesterol 220 mg/dL; Estimated Glomerular Filt Rate > 60; Glucose Fasting 93 mg/dL (60-99); HDL Cholesterol 37 mg/dL; LDL Cholesterol Calculated 156 mg/dl; Potassium 4.7 mmol/L (3.3-5.1); Sodium 139 mmol/L (135-145); Total Protein 7.1 g/dL (6.5-8.0); Triglycerides 138 mg/dL
[2022-10-08 12:12] LABS: TSH reflex Free T4 0.82 uIU/mL (0.32-4.0)
== END 2022-10-08 08:26 | disposition home or self-care (01) ==
LOC: HO.HMGCLDS 08:25
PROVIDERS: PCP Internal Medicine; Visit Provider Internal Medicine
DX: Z00.00 Encounter for general adult medical examination without abnormal findings (principal)
CPT/HCPCS: 36415; 80053; 80061; 84443; 85025

== ENCOUNTER 2023-03-08 14:51 | Outpatient (REF) | payer BC, SELFPAY ==
--- NOTE | ~2023-03-08 | MM_ITS ---
EXAMINATION: MM DIAGNOSTIC DIGITAL BREAST TOMOSYNTHESIS, BILATERAL CLINICAL INFORMATION: The patient presents for diagnostic left breast mammography in the course of the recommended follow-up for medially located left breast asymmetry first noted in January 2021. The lifetime risk of breast cancer based on the Tyrer-Cuzick Model is 21.3.%. COMPARISON: Mammography: This study is compared with prior exams dating back to January 2021. The January 2021 study was the patient's baseline mammogram. TECHNIQUE: Digital breast tomosynthesis is performed in both the craniocaudal and mediolateral oblique views along with computer-aided detection (CAD). Synthesized 2D images are generated from the tomosynthesis. FINDINGS: There are scattered areas of fibroglandular density (ACR BI-RADS breast composition Category b). There are no significant masses, abnormal calcifications, or other abnormalities in either breast. There are no mammographic signs of malignancy. MM/MM tomosynthesis diagnostic BI IMPRESSION: No mammographic evidence of malignancy. Results are provided to the patient at time of visit by the technologist. ASSESSMENT: BI-RADS BI-RADS 1 - Negative RECOMMENDATION: 1 year F/U Clinical assessment is advised for the patient's high Tyrer-Cuzick score of breast cancer risk. This patient's information was entered into a reminder system with a target due date for their next mammogram.
== END 2023-03-08 14:52 | disposition home or self-care (01) ==
LOC: HO.MAMMO 14:51
PROVIDERS: PCP Internal Medicine; Visit Provider Internal Medicine
DX: N64.89 Other specified disorders of breast (principal)
CPT/HCPCS: 77062; 77066

== ENCOUNTER → 2023-03-08 15:00 | Outpatient (BNV) | payer BC, SELFPAY | PROVIDERS: PCP Internal Medicine; Visit Provider Radiology Diagnostic Radiology | DX: R92.8 Other abnormal and inconclusive findings on diagnostic imaging of breast (principal) | CPT/HCPCS: 77062; 77066 ==

== ENCOUNTER 2023-03-11 13:03 | Outpatient (AMB) | payer BC, SELFPAY ==
--- NOTE | 2023-03-11 13:08 | A.OFFVIS_ITS ---
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 Scribed for NURY Payne by Keyla Vega medical lab technician, on 03/11/2023 at 1:27 pm EST. Corrugated Sheet Material Sheeter: Corrugated Sheet Material Sheeter Present (Xiomy) Allergies No Known Allergies [No Known Allergies*] Allergy (Verified 10/06/22 09:07) Is last menstrual period known: No Post menopausal: No Patient : No HPI HPI Comments History of Present Illness Details She is a premenopausal woman presenting for annual exam. She admits to eating healthy and tries to stay active with exercise. Currently sexually active. Uses Mirena for BC with slight pelvic cramping which she treats with heating pad and OTC pain medication. Denies vaginal itching and irritation. STD screening offered; she accepts culture, not blood work. Denies family hx of colon cancer. Last pap smear 12/05/20 Last mammogram 03/08/23 per pt. PFS Medical History Cervical cancer screening COVID-19 vaccine series completed Depression with anxiety Eczema Environmental allergies Gallstones depression Surgical History History of wisdom tooth extraction Hx of cholecystectomy No pertinent past surgical history Family History Father Bladder cancer Cancer of prostate Mother Breast cancer Sister Cervical cancer Maternal Grandmother Ovarian cancer Social History Household Members Other:: 2 children 11 and 5-year-old, smokes 7 c igarettes a day Housing: Apartment Are you a primary hospice care consultant to a significant other at home: No Do you presently have visiting nurse or other home services: No Alcohol intake: current Alcohol intake frequency: a few times a month Patient Tobacco Use Status: Current everyday Tobacco user Tobacco use type: Cigarette Cigarette Packs Per Day: 0.25 Cigarettes Per Day: 6 Years Smoked: 20+ e-Cigarette/Vaping Use: Never Used Current occupational status: employed Sexual orientation: Straight/Heterosexual Gender identity: Female Cognitive needs: No Hearing needs: No Vision needs: No Female Reproductive History Menstrual Age of Menarche: 9 control method: progestin IUCD (Mirena 06/2021; IUD strings visible 03/11/23) Total pregnancies: 3 Full term: 2 Number of Living Children: 2 Date of last pap smear: 12/05/20 (neg pap and hpv) History of abnormal pap smear: Yes (10/26 +hpv) Physical Exam Vital Signs: Last Vital Signs BP 120/68 03/11/23 13:10 BMI result Body Mass Index 27.4 Const General: cooperative, healthy appearing, no acute distress, well developed and alert Orientation/consciousness: patient oriented x3 HEENT Head: Yes normal to inspection Eyes General: appearance normal, both eyes and all related structures Neck Neck: Yes normal visual inspection Thyroid: Thyroid normal Chest Chest palpation & inspection: normal inspection of the chest Breast/axilla inspection: normal inspection of the breasts (no puckering, dimpling, peau de orange, retraction, discharge, masses) Breast/axilla palpation: normal palpation of the breasts Resp Effort & Inspection: normal respiratory effort GI Inspection: Yes normal to inspection Palpation (GI): Soft to palpation (to palpation) Rectal Exam - Female: deferred General: Yes bladder normal to inspection External Female Exam: normal external appearance and normal appearance of the urethra Speculum Exam - Vagina: normal appearance of the vagina, normal palpation and normal vaginal discharge Speculum Exam - Cervix: normal appearance of the cervix, normal palpation and Other cervical findings present (IUD strings visible) Bimanual exam- vagina & uterus: normal palpation and normal palpation Bimanual Exam- Adnexa, other: normal adnexae and no masses Skin General skin exam: no rashes or lesions noted Neuro General: patient oriented x3 Cognition (Neuro): normal cognition Extrem General: Yes normal to inspection Psych Attitude: cooperative Thought process: Normal thought process present Assessment & Plan Assessment & Plan (1) Encounter for well woman exam: Code(s): Z01.419 - Encounter for gynecological examination (general) (routine) without abnormal findings Plan: Discussed: Current recommendations for pap smears per ASCCP guidelines Breast awareness and periodic self breast exams. Maintaining a healthy lifestyle including a well balanced diet and routine exercise. Referral for BRCA testing. All of her questions and concerns were addressed to the best of my ability. RTO in one year for AG. (2) FH: breast cancer in first degree relative: Code(s): Z80.3 - Family history of malignant neoplasm of breast Orders: Orders CT NG by PCR Today Z20.2 - Contact with and (suspected) exposure to infections with a predominantly sexual mode of transmission Referrals Genetics Referral Z80.3 - Family history of malignant neoplasm of breast Quality Reporting (2019) Adult ([facility] 138/09/30/68) Smoking risk assessment performed?: Yes Patient Tobacco Use Status: Current everyday Tobacco user Coding Level of Care Code Est Pt Prev Care 18-39y(87520) Diagnoses Encounter for well woman exam Z01.419 FH: breast cancer in first degree relative Z80.3
[2023-03-11 13:10] VITALS: BP 120/68; BMI 27.4
== END 2023-03-11 13:50 | disposition home or self-care (01) ==
LOC: HO.HWS 13:03
PROVIDERS: PCP Internal Medicine; Visit Provider Advanced Practice Midwife
DX: Z01.419 Encounter for gynecological examination (general) (routine) without abnormal findings (principal); Z80.3 Family history of malignant neoplasm of breast
CPT/HCPCS: 99395

== ENCOUNTER 2023-03-11 13:03 | Outpatient (REF) | payer BC, SELFPAY ==
[2023-03-12 03:19] LABS: CT PCR NOT DETECTED (Not Detect.); NG PCR NOT DETECTED (Not Detect.)
== END 2023-03-11 13:04 | disposition home or self-care (01) ==
LOC: HO.LNP 13:03
PROVIDERS: PCP Internal Medicine; Visit Provider Advanced Practice Midwife
DX: Z20.2 Contact with and (suspected) exposure to infections with a predominantly sexual mode of transmission (principal)
CPT/HCPCS: 0353U

== ENCOUNTER 2023-04-01 13:38 | Outpatient (AMB) | payer BC, SELFPAY ==
--- NOTE | 2023-04-01 13:49 | A.OFFVIS_ITS ---
Intake Vital Signs 04/01/23 13:52 Height 6 ft Weight 208 lb BMI 28.2 BP 115/66 Blood Pressure Location Rt brachial Position Sitting Pulse 69 Intake Visit Reasons: Family history of malignant neoplasm of breast Intake Note: This patient present for an assessment for family history of malignant neoplasm of the breast. Patient c/o; reports no breast complaints at this time. 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 She says that her grandmother was diagnosed to have ovarian cancer and her mother was diagnosed to have breast cancer at age of 47 She had a screening mammogram 2020 and focal asymmetry on the left breast so she had been undergoing diagnostic mammograms which is always been negative. Her last mammogram was earlier this month and this was unremarkable so was recommended to undergo another mammogram after 1 year. She denies any palpable masses or any nipple or skin changes. [facility] Medical History (Updated 04/01/23 @ 14:09 by Giuseppe Field MD) Cervical cancer screening COVID-19 vaccine series completed Depression with anxiety Eczema Environmental allergies Family history of breast cancer Family history of ovarian cancer Gallstones depression Surgical History History of wisdom tooth extraction Hx of cholecystectomy No pertinent past surgical history Family History Father Bladder cancer Cancer of prostate Mother Breast cancer, Onset Age: 47 Sister Cervical cancer Maternal Grandmother Ovarian cancer Social History Household Members Other:: 2 children 11 and 5-year-old, 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 a day Housing: Apartment Are you a primary client care consultant to a significant other at home: No Do you presently have visiting nurse or other home services: No Alcohol intake: current Alcohol intake frequency: a few times a month Patient Tobacco Use Status: Current everyday Tobacco user Tobacco use type: Cigarette Cigarette Packs Per Day: 0.25 Cigarettes Per Day: 6 Years Smoked: 20+ e-Cigarette/Vaping Use: Never Used Current occupational status: employed Sexual orientation: Straight/Heterosexual Gender identity: Female Cognitive needs: No Hearing needs: No Vision needs: No Female Reproductive History Menstrual Age of Menarche: 9 Total pregnancies: 2 Review of Systems Const Denies chills and Denies fever(s) Card Denies chest pain, Denies dyspnea and Denies dyspnea on exertion Resp Denies cough, Denies dyspnea and Denies dyspnea on exertion GI Denies hematochezia and Denies change in bowel habits Denies hematuria Musc Denies back pain and Denies limited range of motion Neuro Denies focal weakness and Denies convulsions Psych Denies depression and Denies mood swings Physical Exam Vital Signs: Last Vital Signs Pulse 69 04/01/23 13:52 BP 115/66 04/01/23 13:52 BMI result Body Mass Index 28.2 Const General: comfortable and no acute distress Orientation/consciousness: patient oriented x3 Neck Neck: Yes no lymphadenopathy Chest Other: No palpable breast masses, no nipple or skin changes, no axillary lymphadenopathy Resp Auscultation: clear to auscultation bilaterally Cardio Rhythm: regular rhythm GI Palpation (GI): Soft to palpation, nontender and no guarding Neuro General: patient oriented x3 Assessment & Plan Assessment & Plan (1) Family history of ovarian cancer: Code(s): Z80.41 - Family history of malignant neoplasm of ovary Plan: She has a family history of ovarian cancer (in her grandmother) and her mother also had breast cancer at age of 47. She will therefore qualify for genetic testing with [facility]. I explained to her the implications of this test. She says she is willing to go for this test. She will be scheduled for this here in the office. She will undergo genetic counseling at that same time as well. (2) Family history of breast cancer: Code(s): Z80.3 - Family history of malignant neoplasm of breast Plan: Her mother was diagnosed to have breast cancer at age of 47. She will therefore qualify for testing with [facility]. Quality Reporting (2019) Adult ([facility] 138/09/30/68) Smoking risk assessment performed?: Yes Patient Tobacco Use Status: Current everyday Tobacco user Coding Level of Care Code New Pt Level 3 (58311) Diagnoses Family history of ovarian cancer Z80.41 Family history of breast cancer Z80.3
[2023-04-01 13:52] VITALS: BP 115/66; PULSE 69; BMI 28.2
== END 2023-04-01 14:11 | disposition home or self-care (01) ==
PROVIDERS: PCP Internal Medicine; Referring Provider Advanced Practice Midwife; Visit Provider Surgery
DX: Z80.41 Family history of malignant neoplasm of ovary (principal); Z80.3 Family history of malignant neoplasm of breast
CPT/HCPCS: 99203

== ENCOUNTER → 2023-04-01 13:38 | Outpatient (BNVA) | payer BC, SELFPAY | PROVIDERS: PCP Internal Medicine; Referring Provider Advanced Practice Midwife; Visit Provider Surgery ==

== ENCOUNTER → 2023-04-09 12:54 | Outpatient (BNVA) | payer BC, SELFPAY | PROVIDERS: PCP Internal Medicine; Visit Provider Surgery | DX: Z71.83 Encounter for nonprocreative genetic counseling (principal); Z80.3 Family history of malignant neoplasm of breast; Z80.41 Family history of malignant neoplasm of ovary | CPT/HCPCS: 99211 ==

== ENCOUNTER 2023-05-20 08:48 | Outpatient (AMB) | payer BC, SELFPAY ==
--- NOTE | 2023-05-20 08:49 | A.OFFVIS_ITS ---
Intake Intake Visit Reasons: genetic testing results *HERE* Intake Note: This patient presents for a follow-up for genetic test results. Patient c/o; reports no changes. 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 She is here to discuss the results. She currently denies any significant complaints. [facility] Medical History Family history of breast cancer Family history of ovarian cancer COVID-19 vaccine series completed Environmental allergies Cervical cancer screening Eczema Gallstones depression Depression with anxiety Surgical History Hx of cholecystectomy History of wisdom tooth extraction No pertinent past surgical history Family History Father Bladder cancer Cancer of prostate Mother Breast cancer, Onset Age: 47 Sister Cervical cancer Maternal Grandmother Ovarian cancer Social History Household Members Other:: 2 children 11 and 5-year-old, 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 a day Housing: Apartment Are you a primary personal carer to a significant other at home: No Do you presently have visiting nurse or other home services: No Alcohol intake: current Alcohol intake frequency: a few times a month Patient Tobacco Use Status: Current everyday Tobacco user Tobacco use type: Cigarette Cigarette Packs Per Day: 0.25 Cigarettes Per Day: 6 Years Smoked: 20+ e-Cigarette/Vaping Use: Never Used Current occupational status: employed Sexual orientation: Straight/Heterosexual Gender identity: Female Cognitive needs: No Hearing needs: No Vision needs: No Female Reproductive History Menstrual Age of Menarche: 9 Review of Systems Const Denies chills and Denies fever(s) Card Denies chest pain, Denies dyspnea and Denies dyspnea on exertion Resp Denies cough, Denies dyspnea and Denies dyspnea on exertion GI Denies hematochezia and Denies change in bowel habits Denies hematuria Musc Denies back pain and Denies limited range of motion Neuro Denies focal weakness and Denies convulsions Psych Denies depression and Denies mood swings Physical Exam Const General: comfortable and no acute distress Resp Effort & Inspection: normal respiratory effort Cardio Rate: regular rate Assessment & Plan Assessment & Plan (1) Family history of breast cancer: Code(s): Z80.3 - Family history of malignant neoplasm of breast Plan: She had a [employer] genetic testing done and 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 This specific gene mutation is associated with elevated risk of breast cancer and skin cancer. Her remaining lifetime breast cancer risk is calculated at 26.8% based on the Tyrer-Cuzick model. There are no specific medical management recommendations for her melanoma risk with this mutation. I did advise her on consult examination of the skin, and to consider being checked by a gastrointestinal technician every 6 months and to minimize exposu re to the sun and other sources of UV radiation. For her elevated risk of breast cancer, it is recommended that she undergoes ankle breast exam every 6-12 months. I told her that she can be done with us in the office or with her primary care physician or any clinical provider. It is recommended for her to undergo mammogram once a year and and breast MRI with contrast once a year as well. We will schedule her for an MRI of the breast this August. I will see her in the office after her MRI. I have also advised her to inform her family members about this mutation so they can be tested as well. (2) Family history of ovarian cancer: Code(s): Z80.41 - Family history of malignant neoplasm of ovary Quality Reporting (2019) Adult ([facility] 138/09/30/68) Smoking risk assessment performed?: Yes Patient Tobacco Use Status: Current everyday Tobacco user Coding Level of Care Code Est Pt Level 4 (94175) Diagnoses Family history of breast cancer Z80.3 Family history of ovarian cancer Z80.41
== END 2023-05-20 09:03 | disposition home or self-care (01) ==
PROVIDERS: PCP Internal Medicine; Visit Provider Surgery
DX: Z80.3 Family history of malignant neoplasm of breast (principal); Z80.41 Family history of malignant neoplasm of ovary
CPT/HCPCS: 99214

== ENCOUNTER → 2023-05-20 08:48 | Outpatient (BNVA) | payer BC, SELFPAY | PROVIDERS: PCP Internal Medicine; Visit Provider Surgery ==

== ENCOUNTER 2023-09-07 12:29 | Outpatient (AMB) | payer BC, SELFPAY ==
[2023-09-07 12:44] VITALS: BP 110/66; PULSE 71; O2SAT 98; BMI 29.2
--- NOTE | 2023-09-07 12:44 | MHC.PC.OV ---
Vital Signs 09/07/23 12:44 Height 6 ft Weight 215 lb BMI 29.2 BP 110/66 Blood Pressure Location Rt brachial Position Sitting Pulse 71 Pulse Source Pulse Oximeter Pulse Oximetry (%) 98 Oxygen Delivery Method Room Air Intake Visit Reasons: Cat Bite/ Redness / Soreness Intake Note: Pt is here today for a sick visit. Pt c/o cat bite on her L arm, pt c/o redness and soreness. Allergies No Known Allergies [No Known Allergies*] Allergy (Verified 09/07/23 12:47) Medication List - Last Reconciled 09/07/23 by Mine Chen MD amoxicillin-pot clavulanate 875-125 mg 1 tab PO BID buspirone 5 mg PO BID levonorgestrel (Mirena) intrauterine Tobacco use date assessed: 09/07/23 Dental Screening Dental Screen Date: 09/07/23 Did you have a dental visit in the last 12 months?: Yes Did you have a dental problem in the last 6 months where you did not have access to dental care?: No Was dental information given to patient?: Patient has dentist HPI Cat Bite/ Redness / Soreness HPI Details Patient complains of the cat bite on her left arm 2 days ago. Patient developed redness and swelling of the area. She denies fever or chills PFSH Medical History Family history of breast cancer Family history of ovarian cancer COVID-19 vaccine series completed Environmental allergies Cervical cancer screening Eczema Gallstones depression Depression with anxiety Surgical History Hx of cholecystectomy History of wisdom tooth extraction No pertinent past surgical history Family History (Updated 09/07/23 @ 12:48 by Alejandra Aleman [facility]) Father Bladder cancer Cancer of prostate Substance use disorder Mother Breast cancer, Onset Age: 47 Sister Cervical cancer Maternal Grandmother Ovarian cancer Social History Household Members Other:: 2 children 11 and 5-year-old, 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 a day Housing: Apartment Are you a primary healthcare prof to a significant other at home: No Do you presently have visiting nurse or other home services: No Alcohol intake: current Alcohol intake frequency: a few times a month Comment: abdomne Patient Tobacco Use Status: Current everyday Tobacco user Tobacco use type: Cigarette Cigarette Packs Per Day: 0.25 Cigarettes Per Day: 6 Years Smoked: 20+ Packs Per Year: 0 Packs per year/per ci.00 e-Cigarette/Vaping Use: Never Used Current occupational status: employed Sexual orientation: Straight/Heterosexual Gender identity: Female Cognitive needs: No Hearing needs: No Vision needs: No Female Reproductive History Menstrual Age of Menarche: 9 Questionnaire Thrive Questionnaire Date Thrive assessed: 10/06/22 AUDIT C Alcohol Use Questionnaire (AUDIT-C) 1. How often do you have a drink containing alcohol?: Monthly or less 2. How many drinks containing alcohol do you have on a typical day when you are drinking?: 1 or 2 3. How often do you have six or more drinks on one occasion?: Never Total Score: 1 WILLY-7 AMB Questionnaire WILLY-7 Date WILLY - 7 assessed: 10/06/22 Source: Developed by Drs. Michael Hagen, Yolie Camacho, Lee Gregorio and colleagues, with an educational greg from [employer]. Review of Systems Const All systems reviewed & are unremarkable except as noted in HPI and below Card Reports no additional complaints Resp Reports no additional complaints GI Reports no additional complaints Physical exam (Primary Care) Vital Signs: Last Vital Signs Pulse 71 09/07/23 12:44 BP 110/66 09/07/23 12:44 Pulse Ox 98 09/07/23 12:44 Oxygen Delivery Method Room Air 09/07/23 12:44 BMI result Body Mass Index 29.2 Tobacco/Smoking Status: Tobacco use Status Tobacco use date assessed 09/07/23 09/07/23 12:49 Patient Tobacco Use Status Current everyday Tobacco 09/07/23 12:46 Tobacco use type Cigarette 09/07/23 12:46 e-Cigarette/Vaping Use Never Used 09/07/23 12:46 Thrive Assessment: Date of Thrive Assessment Date Thrive assessed 10/06/22 09/07/23 12:46 Const General: no acute distress [facility] General nose exam: Normal external nose present Eyes General: appearance normal, both eyes and all related structures Resp Effort & Inspection: normal respiratory effort Auscultation: clear to auscultation bilaterally Cardio Rhythm: regular rhythm Heart sounds: S1 normal heart sound present and S2 normal heart sound present Skin Other: There is 10 x 10 cm slightly raised erythematous area with for puncture wounds, no discharge on the left upper arm Immunizations Boostrix Tdap 2.5 Lf unit-8 mcg-5 Lf/0.5 mL intramuscular syringe Performing Provider: Mine Chen MD Performing Location: [facility] [place] [facility] Administered by: LE Ventura on 09/07/23 13:21 Dose Route Admin Location Dispensed Lot Number Expiration Date NDC [employer] 0.5 mL IM Right Deltoid 0.5 mL [id number] 09/14/25 [id number] [employer] VIS Given Date VIS Provided VIS Publication Date 09/07/23 Single Vaccine 21 Eligibility Eligibility Date Funding Source Not [facility] Eligible 09/07/23 Private Assessment and Plan Assessment & Plan (1) Immunization due: Code(s): Z23 - Encounter for immunization (2) Cat bite of left upper arm: Code(s): S41.152A - Open bite of left upper arm, initial encounter; W55.01XA - Bitten by cat, initial encounter Plan: Local wound care discussed with the patient . Augmentin is prescribed for 1 week and patient will receive Tdap Orders: Orders TDaP Immunization Today W55.01XA - Bitten by cat, initial encounter, Z23 - Encounter for immunization Medications: New amoxicillin-pot clavulanate 875-125 mg 1 tab PO BID 14 tabs 0RF Coding Level of Care Code Est Pt Level 3 (17360) Diagnoses Immunization due Z23 Cat bite of left upper arm S41.152A; W55.01XA
== END 2023-09-07 13:24 | disposition home or self-care (01) ==
PROVIDERS: PCP Internal Medicine; Visit Provider Internal Medicine
DX: S41.152A Open bite of left upper arm, initial encounter (principal); W55.01XA Bitten by cat, initial encounter; Z23 Encounter for immunization
CPT/HCPCS: 90471; 90715; 99213

== ENCOUNTER 2023-10-07 08:45 | Outpatient (AMB) | payer BC, SELFPAY ==
[2023-10-07 08:46] VITALS: BP 106/70; PULSE 69; O2SAT 97; BMI 28.5
--- NOTE | 2023-10-07 08:46 | A.OFFPC_ITS ---
Vital Signs 10/07/23 08:46 Height 6 ft Weight 210 lb BMI 28.5 BP 106/70 Blood Pressure Location Rt brachial Position Sitting Pulse 69 Pulse Source Pulse Oximeter Pulse Oximetry (%) 97 Oxygen Delivery Method Room Air Intake Visit Reasons: PE Intake Note: Pt is here today for PE. Allergies No Known Allergies [No Known Allergies*] Allergy (Verified 10/07/23 08:51) Medication List - Last Reconciled 10/07/23 by Mnie Chen MD buspirone 5 mg PO BID PRN levonorgestrel (Mirena) intrauterine sertraline 50 mg PO DAILY triamcinolone acetonide 0.1% 1 appl topical DAILY Tobacco use date assessed: 10/07/23 Dental Screening Dental Screen Date: 10/07/23 Did you have a dental visit in the last 12 months?: Yes Did you have a dental problem in the last 6 months where you did not have access to dental care?: No Was dental information given to patient?: Patient has dentist HPI PE HPI Details Pt presents for physical. She complains of worsening anxiety dealing with her ex regarding her children. Patient did not find buspirone helpful. She has been in counseling on and off. Patient denies depression suicidal id eation. [facility], [facility] Medical History Family history of breast cancer Family history of ovarian cancer COVID-19 vaccine series completed Environmental allergies Cervical cancer screening Eczema Gallstones depression Depression with anxiety Surgical History Hx of cholecystectomy History of wisdom tooth extraction No pertinent past surgical history Family History Father Bladder cancer Cancer of prostate Substance use disorder Mother Breast cancer, Onset Age: 47 Sister Cervical cancer Maternal Grandmother Ovarian cancer Social History (Updated 10/07/23 @ 09:38 by Mine Chen MD) Household Members Other:: , 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, 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, 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 Housing: Apartment Are you a primary career development specialist to a significant other at home: No Do you presently have visiting nurse or other home services: No Alcohol intake: current Alcohol intake frequency: a few times a month Comment: abdomne Patient Tobacco Use Status: Current everyday Tobacco user Tobacco use type: Cigarette Cigarette Packs Per Day: 0.25 Cigarettes Per Day: 6 Years Smoked: 20+ e-Cigarette/Vaping Use: Never Used Current occupational status: employed Sexual orientation: Straight/Heterosexual Gender identity: Female Cognitive needs: No Hearing needs: No Vision needs: No Female Reproductive History Menstrual Age of Menarche: 9 Questionnaire Thrive Questionnaire Date Thrive assessed: 10/06/22 WILLY-7 AMB Questionnaire WILLY-7 Date IWLLY - 7 assessed: 10/06/22 Source: Developed by Drs. Michael Hagen, Yolie Camacho, Lee Gregorio and colleagues, with an educational greg from [employer]. Review of Systems Const All systems reviewed & are unremarkable except as noted in HPI and below Reports no additional complaints Eyes Reports no additional complaints ENT Reports no additional complaints Card Reports no additional complaints Resp Reports no additional complaints GI Reports no additional complaints Reports no additional complaints Physical exam (Primary Care) Vital Signs: Last Vital Signs Pulse 69 10/07/23 08:46 BP 106/70 10/07/23 08:46 Pulse Ox 97 10/07/23 08:46 Oxygen Delivery Method Room Air 10/07/23 08:46 BMI result Body Mass Index 28.5 Tobacco/Smoking Status: Tobacco use Status Tobacco use date assessed 10/07/23 10/07/23 08:53 Patient Tobacco Use Status Current everyday Tobacco 10/07/23 08:46 Tobacco use type Cigarette 10/07/23 08:46 e-Cigarette/Vaping Use Never Used 10/07/23 08:46 Thrive Assessment: Date of Thrive Assessment Date Thrive assessed 10/06/22 10/07/23 08:46 Const General: no acute distress HENMT Head: Yes normal to inspection Ears: hearing grossly normal bilaterally Face and sinus: Yes normal facial exam Throat: Yes posterior oropharynx normal Eyes General: appearance normal, both eyes and all related structures Neck Neck: Yes no lymphadenopathy and Yes supple Resp Effort & Inspection: normal respiratory effort Auscultation: clear to auscultation bilaterally Cardio Rhythm: regular rhythm Heart sounds: S1 normal heart sound present and S2 normal heart sound present GI Inspection: Yes normal to inspection Palpation (GI): Soft to palpation Percussion: Yes normal to percussion Auscultation: normal bowel sounds Assessment and Plan Assessment & Plan (1) Annual physical exam: Code(s): Z00.00 - Encounter for general adult medical examination without abnormal findings Plan: Well-balanced diet regular physical activity discussed with the patient. she will return for fasting blood work. Tobacco quitting discussed. Patient is up-to-date with the Pap smear by director of resource development and gets annual mammogram (2) Depression with anxiety: Code(s): F41.8 - Other specified anxiety disorders Plan: Start sertraline 25 mg for the 1st week then increase to 50 mg a day. Stress management discussed with the patient. She will follow-up in 2 months Orders: Orders Comprehensive [place]. Panel Fast Today F41.8 - Other specified anxiety disorders, Z00.00 - Encounter for general adult medical examination without abnormal findings Complete Blood Count Auto Diff Today F41.8 - Other specified anxiety disorders, Z00.00 - Encounter for general adult medical examination without abnormal findings TSH reflex Free T4 Today F41.8 - Other specified anxiety disorders, Z00.00 - Encounter for general adult medical examination without abnormal findings Lipid Panel Today F41.8 - Other specified anxiety disorders, Z00.00 - Encounter for general adult medical examination without abnormal findings Vitamin B12 and Folate Today F41.8 - Other specified anxiety disorders, Z00.00 - Encounter for general adult medical examination without abnormal findings Vitamin D 25-OH Total Today F41.8 - Other specified anxiety disorders, Z00.00 - Encounter for general adult medical examination without abnormal findings UA w Microscopic Today F41.8 - Other specified anxiety disorders, Z00.00 - Encounter for general adult medical examination without abnormal findings Medications: New sertraline 1/2 tabl for 1 week then 1 tabl qd 50 mg PO DAILY 30 tabs 2RF triamcinolone acetonide 0.1% 1 appl topical DAILY 80 grams 1RF Changed From buspirone 5 mg PO BID 60 tabs 3RF To buspirone 5 mg PO BID PRN Coding Level of Care Code Est Pt Prev Care 40-64y(71074) Diagnoses Annual physical exam Z00.00 Depression with anxiety F41.8
== END 2023-10-07 09:31 | disposition home or self-care (01) ==
PROVIDERS: PCP Internal Medicine; Visit Provider Internal Medicine
DX: Z00.00 Encounter for general adult medical examination without abnormal findings (principal); F41.8 Other specified anxiety disorders
CPT/HCPCS: 99396

== ENCOUNTER 2023-10-08 08:21 | Outpatient (REF) | payer BC, SELFPAY ==
[2023-10-08 11:19] LABS: MANUAL DIFF FLAG NO
[2023-10-08 11:33] LABS: Basophils Absolute Auto 0.1 X10*3/uL (0.0-0.2); Basophils Percent Auto 0.9 % (0-2); Eosinophils Absolute Auto 0.3 X10*3/uL (0.0-0.4); Eosinophils Percent Auto 3.8 % (0-4); Hematocrit 47.8 % (37.0-47.0); Hemoglobin 15.6 g/dl (12.0-16.0); Imm Gran Abs Auto 0.02 X10*3/uL (0.00-0.03); Imm Gran Pct Auto 0.2 % (0.0-0.4); Lymphocytes Absolute Auto 2.5 X10*3/uL (1.2-4.9); Lymphocytes Percent Auto 31.1 % (20-40); Mean Corpuscular HGB Conc 32.6 g/dl (31.0-35.0); Mean Corpuscular Hemoglobin 29.8 pg (27.0-33.0); Mean Corpuscular Volume 91.4 fL (80.0-98.0); Mean Platelet Volume 9.9 fL (9.4-12.3); Monocytes Absolute Auto 0.5 X10*3/uL (0.1-1.2); Monocytes Percent Auto 6.1 % (2-11); Neutrophils Absolute Auto 4.7 x10*3/uL (2.0-8.3); Neutrophils Percent Auto 57.9 % (45-73); Platelet Count 330 X10*3/uL (160-400); Red Blood Count 5.23 X10*6/uL (4.20-5.50); Red Cell Distribution Width 13.2 % (11.0-16.0); White Blood Count 8.1 X10*3/uL (4.8-10.8)
[2023-10-08 11:52] LABS: Alanine Aminotransferase 11 U/L (0-31); Albumin Level 4.5 g/dL (3.5-5.0); Alkaline Phosphatase 70 U/L (39-117); Anion Gap 11 (12-20); Aspartate Amino Transferase 12 U/L (5-31); Bilirubin Total 0.9 mg/dL (0.0-1.0); Blood Urea Nitrogen 9 mg/dL (9-16); Calcium 9.7 mg/dL (8.4-10.2); Carbon Dioxide 27 mmol/L (22-29); Chloride 109 mmol/L (96-108); Cholesterol 205 mg/dL (<200); Estimated Glomerular Filt Rate > 60; Glucose Fasting 96 mg/dL (60-99); HDL Cholesterol 42 mg/dL (>40); LDL Cholesterol Calculated 145 mg/dL (<100); Potassium 4.9 mmol/L (3.3-5.1); Sodium 142 mmol/L (135-145); Total Protein 7.6 g/dL (6.5-8.0); Triglycerides 90 mg/dL (<150)
[2023-10-08 11:58] LABS: Appearance Urine Cloudy; Color Urine Yellow; Glucose Urine UA Negative (Negative); Leukocyte Esterase Urine Large (3+) (Negative); Nitrite Urine Negative (Negative); Specific Gravity - Urine 1.015 (1.005-1.025); UMIC TRIGGER UA YES; Urine Blood Moderate (2+) (Negative); Urine Ketones Negative (Negative); Urine Protein Negative (Neg-Trace)
[2023-10-08 12:06] LABS: Vitamin B12 151 pg/mL (200-900)
[2023-10-08 12:17] LABS: TSH reflex Free T4 0.57 uIU/mL (0.32-4.0); Vitamin D 25-OH Total 31.9 ng/mL (>30)
[2023-10-08 12:19] LABS: Bacteria Urine 4+ (None Seen); WBC Clumps Urine Present; WBC Urine >50 /HPF (0-5)
== END 2023-10-08 08:22 | disposition home or self-care (01) ==
LOC: HO.HMGCLDS 08:21
PROVIDERS: PCP Internal Medicine; Visit Provider Internal Medicine
DX: Z00.00 Encounter for general adult medical examination without abnormal findings (principal); Z13.6 Encounter for screening for cardiovascular disorders; F41.8 Other specified anxiety disorders
CPT/HCPCS: 36415; 80053; 80061; 81001; 82306; 82607; 82746; 84443; 85025

== ENCOUNTER 2023-11-25 10:53 | Outpatient (AMB) | payer BC, SELFPAY ==
[2023-11-25 11:16] VITALS: BP 118/78; PULSE 78; O2SAT 98; BMI 29.2
--- NOTE | 2023-11-25 11:16 | A.OFFPC_ITS ---
Vital Signs 11/25/23 11:16 Height 6 ft Weight 215 lb BMI 29.2 BP 118/78 Blood Pressure Location Lt brachial Position Sitting Pulse 78 Pulse Source Pulse Oximeter Pulse Oximetry (%) 98 Oxygen Delivery Method Room Air Intake Visit Reasons: 2M F/U Allergies No Known Allergies [No Known Allergies*] Allergy (Verified 11/25/23 11:19) Medication List - Last Reconciled 11/25/23 by Mine Chen MD buspirone 5 mg PO BID PRN levonorgestrel (Mirena) intrauterine mecobalamin (vitamin B12) 1,000 mcg PO DAILY multivitamin 1 tab PO DAILY sertraline 50 mg PO DAILY triamcinolone acetonide 0.1% 1 appl topical DAILY Tobacco use date assessed: 11/25/23 Dental Screening Dental Screen Date: 11/25/23 Did you have a dental visit in the last 12 months?: Yes Did you have a dental problem in the last 6 months where you did not have access to dental care?: No Was dental information given to patient?: Patient has dentist HPI 2M F/U HPI Details Patient presents for the follow-up of chronic anxiety improved on sertraline. Patient has been taking B12 supplement PFSH Medical History Family history of breast cancer Family history of ovarian cancer COVID-19 vaccine series completed Environmental allergies Cervical cancer screening Eczema Gallstones depression Depression with anxiety Surgical History Hx of cholecystectomy History of wisdom tooth extraction No pertinent past surgical history Family History Father Bladder cancer Cancer of prostate Substance use disorder Mother Breast cancer, Onset Age: 47 Sister Cervical cancer Maternal Grandmother Ovarian cancer Social History Household Members Other:: , 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, 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, 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 Housing: Apartment Are you a primary care management coordinator to a significant other at home: No Do you presently have visiting nurse or other home services: No Alcohol intake: current Alcohol intake frequency: a few times a month Comment: abdomne Patient Tobacco Use Status: Current everyday Tobacco user Tobacco use type: Cigarette Cigarette Packs Per Day: 0.25 Cigarettes Per Day: 6 Years Smoked: 20+ e-Cigarette/Vaping Use: Never Used service: No Current occupational status: employed Sexual orientation: Straight/Heterosexual Gender identity: Female Cognitive needs: No Hearing needs: No Vision needs: No Female Reproductive History Menstrual Age of Menarche: 9 Questionnaire PHQ-9 Over the last 2 weeks, how often have you been bothered by any of the following problems? 1. Little interest or pleasure in doing things: several days 2. Feeling down, depressed, or hopeless: several days 3. Trouble falling or staying asleep, or sleeping too much: not at all 4. Feeling tired or having little energy: several days 5. Poor appetite or overeating: not at all 6. Feeling bad about yourself - or that you are a failure or have let yourself or your family down: not at all 7. Trouble concentrating on things, such as reading the newspaper or watching television: not at all 8. Moving or speaking so slowly that other people could have noticed. Or the opposite - being so fidgety or restless that you have been moving around a lot more than usual: several days 9. Thoughts that you would be better off or of hurting yourself in some way: not at all Total score: 4 Depression Screening Interpretation: Negative Depression Screening Done: Yes Source: Developed by Drs. Michael Hagen, Yolie Camacho, Lee Gregorio and colleagues, with an educational greg from [employer]. Thrive Questionnaire Date Thrive assessed: 11/25/23 I am a: Patient What is your living situation today?: I have a steady place to live Within the past 12 months, did the food you bought not last and you didn't have the money to get more?: Never true Within the past 12 months, did you worry whether your food would run out before you got money to buy more?: Never true Do you have trouble paying for medicines?: No Do you have trouble getting transportation to medical appointments?: No Do you have trouble paying your heating and electricity bill?: No Do you have trouble taking care of your child, family member or friend?: No Do you have trouble with day-to-day activities such as bathing, preparing meals, shopping, managing finances, etc.?: No Are you currently unemployed and looking for a job?: No Are you interested in more education?: No Please select the resources that you would like help with: None THRIVE Score: 0 AUDIT C Alcohol Use Questionnaire (AUDIT-C) 1. How often do you have a drink containing alcohol?: Monthly or less 2. How many drinks containing alcohol do you have on a typical day when you are drinking?: 1 or 2 3. How often do you have six or more drinks on one occasion?: Never Total Score: 1 WILLY-7 AMB Questionnaire WILLY-7 Date WILLY - 7 assessed: 11/25/23 Feeling nervous, anxious, or on edge: 0 = Not at all Not being able to stop or control worryin = Not at all Worrying too much about different things: 0 = Not at all Trouble relaxin = Not at all Being so restless that it is hard to sit still: 0 = Not at all Becoming easily annoyed or irritable: 0 = Not at all Feeling afraid as if something awful might happen: 0 = Not at all Total WILLY-7 score (0-4 normal; 5-9 mild; 10-14 moderate; 15-21 severe): 0 Source: Developed by Drs. Michael Hagen, Yolie Camacho, Lee Gregorio and colleagues, with an educational greg from [employer]. Review of Systems Const All systems reviewed & are unremarkable except as noted in HPI and below Eyes Reports no additional complaints ENT Reports no additional complaints Card Reports no additional complaints Resp Reports no additional complaints GI Reports no additional complaints Reports no additional complaints Physical exam (Primary Care) Vital Signs: Last Vital Signs Pulse 78 11/25/23 11:16 BP 118/78 11/25/23 11:16 Pulse Ox 98 11/25/23 11:16 Oxygen Delivery Method Room Air 11/25/23 11:16 BMI result Body Mass Index 29.2 Tobacco/Smoking Status: Tobacco use Status Tobacco use date assessed 11/25/23 11/25/23 11:21 Patient Tobacco Use Status Current everyday Tobacco 11/25/23 11:21 Tobacco use type Cigarette 11/25/23 11:21 e-Cigarette/Vaping Use Never Used 11/25/23 11:21 PHQ-9: PHQ-9 Score PHQ-9: Total score 4 11/25/23 13:04 Depression Screening Interpretation: Negative Thrive Assessment: Date of Thrive Assessment Date Thrive assessed 11/25/23 11/25/23 11:22 Const General: no acute distress HENMT Head: Yes normal to inspection Mouth: Normal oral and palatal mucosa present Eyes General: appearance normal, both eyes and all related structures Resp Effort & Inspection: normal respiratory effort Auscultation: clear to auscultation bilaterally Cardio Rhythm: regular rhythm Heart sounds: S1 normal heart sound present and S2 normal heart sound present Assessment and Plan Assessment & Plan (1) Depression with anxiety: Code(s): F41.8 - Other specified anxiety disorders Plan: Continue sertraline (2) Low vitamin B12 level: Code(s): R79.89 - Other specified abnormal findings of blood chemistry Plan: Continue vitamin B12 check the level in 2 weeks (3) Hyperlipidemia: Code(s): E78.5 - Hyperlipidemia, unspecified Plan: Low-cholesterol diet increase physical activity discussed with the patient repeat lipid profile in 5 months Orders: Orders Lipid Panel 5 Months E78.5 - Hyperlipidemia, unspecified, F41.8 - Other specified anxiety disorders, R79.89 - Other specified abnormal findings of blood chemistry Vitamin B12 and Folate 5 Months E78.5 - Hyperlipidemia, unspecified, F41.8 - Other specified anxiety disorders, R79.89 - Other specified abnormal findings of blood chemistry Coding Level of Care Code Est Pt Level 4 (38695) Diagnoses Depression with anxiety F41.8 Low vitamin B12 level R79.89 Hyperlipidemia E78.5
== END 2023-11-25 11:36 | disposition home or self-care (01) ==
PROVIDERS: PCP Internal Medicine; Visit Provider Internal Medicine
DX: F41.8 Other specified anxiety disorders (principal); R79.89 Other specified abnormal findings of blood chemistry; E78.5 Hyperlipidemia, unspecified
CPT/HCPCS: 99214

== ENCOUNTER 2024-03-14 13:10 | Outpatient (REF) | payer BC, SELFPAY ==
[2024-03-17 13:28] LABS: HPV mRNA E6/E7 Detected (Not Detected)
== END 2024-03-14 13:11 | disposition home or self-care (01) ==
LOC: HO.LNP 13:10
PROVIDERS: PCP Internal Medicine; Visit Provider Advanced Practice Midwife
DX: Z01.419 Encounter for gynecological examination (general) (routine) without abnormal findings (principal); Z11.51 Encounter for screening for human papillomavirus (HPV)
CPT/HCPCS: 87624; 88175

== ENCOUNTER 2024-03-14 13:10 | Outpatient (AMB) | payer BC, SELFPAY ==
--- NOTE | 2024-03-14 13:20 | A.OFFVIS_ITS ---
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 Doing well with concerns: Skin rash between the breast due to sweating has used topical creams concerned that it reoccurs looking for something to clear completely, also has a rash on the front of her legs unable to resolve for many years. Was told in the past she was allergic to chlorine. She tries to eat healthy and stays active with exercise. Occasional spotting with Mirena. Currently is sexually active. She denies vaginal itching and irritation. STI screening offered; she declines. Denies family history of colon cancer. History of breast cancer-mom. Last pap smear 2020, negative. Prior pap HPV+. Mammogram: 2022. [facility] Medical History Family history of breast cancer Family history of ovarian cancer COVID-19 vaccine series completed Environmental allergies Cervical cancer screening Eczema Gallstones depression Depression with anxiety Surgical History Hx of cholecystectomy History of wisdom tooth extraction No pertinent past surgical history Family History (Updated 03/14/24 @ 13:29 by LE Villatoro) Father Bladder cancer Cancer of prostate Substance use disorder Mother Breast cancer, Onset Age: 47 Sister Cervical cancer Maternal Grandmother Ovarian cancer Social History Household Members Other:: , 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, 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, 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 Housing: Apartment Are you a primary health care aide to a significant other at home: No Do you presently have visiting nurse or other home services: No Alcohol intake: current Alcohol intake frequency: a few times a month Comment: abdomne Patient Tobacco Use Status: Current everyday Tobacco user Tobacco use type: Cigarette Cigarette Packs Per Day: 0.25 Cigarettes Per Day: 6 Years Smoked: 20+ e-Cigarette/Vaping Use: Never Used service: No Current occupational status: employed Sexual orientation: Straight/Heterosexual Gender identity: Female Cognitive needs: No Hearing needs: No Vision needs: No Female Reproductive History Menstrual Age of Menarche: 9 control method: progestin IUCD (Mirena 06/29) Total pregnancies: 3 Full term: 2 Number of Living Children: 2 Date of last pap smear: 12/04/20 (neg pap and hpv) History of abnormal pap smear: Yes (/ +hpv) Date of Mammogram: 03/08/23 (Birad 1) Review of Systems Const All systems reviewed & are unremarkable except as noted in HPI and below Reports as per HPI Eyes Reports no additional complaints ENT Reports no additional complaints Card Reports no additional complaints Resp Reports no additional complaints GI Reports as per HPI and Reports no additional complaints Reports as per HPI Musc Reports no additional complaints Skin/Breast Reports as per HPI Neuro Reports no additional complaints Psych Reports no additional complaints Endo Reports no additional complaints Callum/Lymph Reports no additional complaints Aller/Immun Reports no additional complaints Physical Exam Vital Signs: Last Vital Signs BP 110/70 03/14/24 13:24 BMI result Body Mass Index 29.4 Const General: cooperative, healthy appearing, no acute distress, well developed and alert Orientation/consciousness: patient oriented x3 HEENT Head: Yes normal to inspection Eyes General: appearance normal, both eyes and all related structures Neck Neck: Yes normal visual inspection Thyroid: Thyroid normal Chest Other: Skin peeled patch over sternum area, no erythema Chest palpation & inspection: normal inspection of the chest and other (no puckering, dimpling, peau de orange, retraction, discharge, masses) Breast/axilla inspection: normal inspection of the breasts Breast/axilla palpation: normal palpation of the breasts Resp Effort & Inspection: normal respiratory effort GI Inspection: Yes normal to inspection Palpation (GI): Soft to palpation Rectal Exam - Female: deferred General: Yes bladder normal to palpation External Female Exam: normal external appearance and normal appearance of the urethra Speculum Exam - Vagina: normal appearance of the vagina, normal palpation and normal vaginal discharge Speculum Exam - Cervix: normal appearance of the cervix and normal palpation Bimanual exam- vagina & uterus: normal bimanual exam, normal palpation, uterine size normal, bladder normal to palpation, normal palpation and non-tender Bimanual Exam- Adnexa, other: no masses Skin General skin exam: no rashes or lesions noted Rashes: no rashes Neuro General: patient oriented x3 Cognition (Neuro): normal cognition Extrem General: Yes normal to inspection Psych Attitude: cooperative Thought process: Normal thought process present Quality Reporting (2019) Adult ([facility] 13809/30/68) Smoking risk assessment performed?: Yes Patient Tobacco Use Status: Current everyday Tobacco user Assessment & Plan Assessment & Plan (1) Encounter for well woman exam with routine gynecological exam: Code(s): Z01.419 - Encounter for gynecological examination (general) (routine) without abnormal findings Category: Medical Plan: Discussed: Current recommendations for pap smears per ASCCP guidelines. Pap obtained. Breast awareness and periodic breast exams. Maintain a healthy lifestyle including a well balanced diet and routine exercise. Mammogram yearly. Has a appointment with her PCP in a month plans to discuss her skin rashes at that visit, consider dermatology referral. Patient verbalizes understanding and agrees to the plan of care. She was given opportunity to ask questions and all questions were answered to the best of my ability. 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 This note is constructed using voice recognition software. While every effort has been made to ensure accuracy, public health director errors may have been included. Coding Level of Care Code Est Pt Prev Care 40-64y(11387) Diagnoses Encounter for well woman exam with routine gynecological exam Z01.419
[2024-03-14 13:24] VITALS: BP 110/70; BMI 29.4
== END 2024-03-14 14:06 | disposition home or self-care (01) ==
PROVIDERS: PCP Internal Medicine; Visit Provider Advanced Practice Midwife
DX: Z01.419 Encounter for gynecological examination (general) (routine) without abnormal findings (principal)
CPT/HCPCS: 99396

== ENCOUNTER 2024-03-31 07:55 | Outpatient (REF) | payer BC, SELFPAY ==
--- NOTE | ~2024-03-31 | MM_ITS ---
EXAMINATION: MM SCREENING DIGITAL BREAST TOMOSYNTHESIS, BILATERAL CLINICAL INFORMATION: Screening. Asymptomatic. COMPARISON: Mammography: This study is compared with prior exams dating back to 2020. TECHNIQUE: Digital breast tomosynthesis is performed in both the craniocaudal and mediolateral oblique views along with computer-aided detection (CAD). Synthesized 2D images are generated from the tomosynthesis. FINDINGS: The breasts are heterogeneously dense, which may obscure small masses (ACR BI-RADS breast composition Category c). There are no significant masses, abnormal calcifications, or other abnormalities. MM/MM tomosynthesis screening BI IMPRESSION: No mammographic evidence of malignancy. ASSESSMENT: BI-RADS BI-RADS 1 - Negative RECOMMENDATION: Routine annual mammography screening. 1 year F/U This examination should not preclude the clinical evaluation of a suspicious palpable abnormality. This patient's information was entered into a reminder system with a target due date for their next mammogram. Electronically signed by: Ayaka Hernandez MD 04/27/2024 07:47 PM EDT
== END 2024-03-31 07:56 | disposition home or self-care (01) ==
LOC: HO.MAMMO 07:55
PROVIDERS: PCP Internal Medicine; Visit Provider Internal Medicine
DX: Z12.31 Encounter for screening mammogram for malignant neoplasm of breast (principal)
CPT/HCPCS: 77063; 77067

== ENCOUNTER → 2024-03-31 08:00 | Outpatient (BNV) | payer BC, SELFPAY | PROVIDERS: PCP Internal Medicine; Visit Provider Radiology Diagnostic Radiology | DX: Z12.31 Encounter for screening mammogram for malignant neoplasm of breast (principal) | CPT/HCPCS: 77063; 77067 ==

== ENCOUNTER 2024-04-26 13:32 | Outpatient (REF) | payer BC, SELFPAY | END 2024-04-26 13:33 | disposition home or self-care (01) | LOC: HO.LNP 13:32 | PROVIDERS: PCP Internal Medicine; Visit Provider Obstetrics & Gynecology | DX: R87.610 Atypical squamous cells of undetermined significance on cytologic smear of cervix (ASC-US) (principal); R87.810 Cervical high risk human papillomavirus (HPV) DNA test positive; Z32.02 Encounter for pregnancy test, result negative | CPT/HCPCS: 57454; 81025; 88305 ==

== ENCOUNTER 2024-04-26 13:32 | Outpatient (AMB) | payer BC, SELFPAY ==
--- NOTE | 2024-04-26 13:39 | A.OFFVIS_ITS ---
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 Required: No Information Interpreted: non-clinical & clinical Epic Application Coordinator: Epic Application Coordinator Present (Amber LUJAN) Accompanied by: Self / Same As Patient Allergies No Known Allergies [No Known Allergies*] Allergy (Verified 04/26/24 13:47) Is last menstrual period known: No (mirena) HPI Comments Details: Presenting for colposcopy for a Pap smear showing ascus/HPV E6 E7 positive [facility] Medical History Family history of breast cancer Family history of ovarian cancer COVID-19 vaccine series completed Environmental allergies Cervical cancer screening Eczema Gallstones depression Depression with anxiety Surgical History Hx of cholecystectomy History of wisdom tooth extraction No pertinent past surgical history Family History Father Bladder cancer Cancer of prostate Substance use disorder Mother Breast cancer, Onset Age: 47 Sister Cervical cancer Maternal Grandmother Ovarian cancer Social History Household Members Other:: , 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, 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, 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 Housing: Apartment Are you a primary animal care supervisor to a significant other at home: No Do you presently have visiting nurse or other home services: No Alcohol intake: current Alcohol intake frequency: a few times a month Comment: abdomne Patient Tobacco Use Status: Current everyday Tobacco user Tobacco use type: Cigarette Cigarette Packs Per Day: 0.25 Cigarettes Per Day: 6 Years Smoked: 20+ e-Cigarette/Vaping Use: Never Used service: No Current occupational status: employed Sexual orientation: Straight/Heterosexual Gender identity: Female Cognitive needs: No Hearing needs: No Vision needs: No Female Reproductive History Menstrual Age of Menarche: 9 Review of Systems Const All systems reviewed & are unremarkable except as noted in HPI and below Reports as per HPI and Reports no additional complaints GI Reports no additional complaints Reports no additional complaints Office Procedures Colposcopy Colposcopy: Pre-Procedure Counseling: Before beginning the procedure, I conducted comprehensive counseling with the patient. We thoroughly discussed the procedure itself, including its details, alternatives, and all associated risks. This included but not limited to the following complications such as bleeding, infection, and injury to the vagina, bladder, and vessels, as well as the potential need for transfusion with all its associated risks. Subsequently, the patient sign the consent. Pap smear result: Ascus/HPV E6 E7 positive Urine test in office = Negative Procedure: During the procedure, the following steps were performed: A speculum was inserted, and acetic acid was applied. Colposcopy was conducted, allowing visualization of the transformation zone. Acetowhite lesions were identified at the 6+7+9+11+12+1+4 o'clock position. Cervical biopsies were obtained from the 6+7+9+11+12+1+4 o'clock position, followed by an endocervical curettage (ECC). Vaginoscopy of the upper vagina revealed no evidence of aceto-white lesions. Hemostasis was achieved using Monsel solution, and the patient tolerated the procedure well. Post-Procedure Instructions: The patient was advised to promptly contact the office or the after hours answering service or go to the emergency room if experiencing a temperature exceeding 100.4?F, abdominal pain, nausea/vomiting, or bleeding. Additionally, the patient was instructed to abstain from vaginal intercourse and bathtub use. The patient confirmed understanding of these instructions. Discharge Instructions: The patient was instructed to schedule a follow-up appointment in 2 weeks for further evaluation and management. Please note that this note was generated using a voice recognition program, and errors may have occurred during organizational effectiveness consultant. [id number] of cervix including upper vagina with biopsy and ECC Procedure code (CPT) selection complete Quality Reporting (2019) Adult ([facility] 13809/30/68) Smoking risk assessment performed?: Yes Patient Tobacco Use Status: Current everyday Tobacco user Assessment & Plan Assessment & Plan (1) ASCUS with positive high risk HPV cervical: Code(s): R87.610 - Atypical squamous cells of undetermined significance on cytologic smear of cervix (ASC-US); R87.810 - Cervical high risk human papillomavirus (HPV) DNA test positive Category: Medical Plan: Discussed with the patient the result of her abnormal pap, its significance, risk of progression, persistence, and regression. the false positive/negative rate of a Pap smear as a screening test in detecting cervical cancer and the indication for a diagnostic test -colposcopy, biopsy, endocervical curettage. The patient verbalized understanding and agreed with the plan, all questions answered. Colpo/biopsy/ECC done, see procedure note Orders: Orders AMB Colposcopy Today R87.610 - Atypical squamous cells of undetermined significance on cytologic smear of cervix (ASC-US), R87.810 - Cervical high risk human papillomavirus (HPV) DNA test positive Coding Level of Care Code Procedure Only Diagnoses ASCUS with positive high risk HPV cervical R87.610; R87.810 CPT Codes Colposcopy - CPT: 30805-Iiahpnjdw of cervix including upper vagina with biopsy and ECC ([id number])
[2024-04-26 13:43] VITALS: BP 110/72; BMI 29.3
== END 2024-04-26 13:58 | disposition home or self-care (01) ==
PROVIDERS: PCP Internal Medicine; Visit Provider Obstetrics & Gynecology
DX: R87.610 Atypical squamous cells of undetermined significance on cytologic smear of cervix (ASC-US) (principal); R87.810 Cervical high risk human papillomavirus (HPV) DNA test positive; Z32.02 Encounter for pregnancy test, result negative
CPT/HCPCS: 57454

== ENCOUNTER 2024-05-11 08:02 | Outpatient (AMB) | payer BC, SELFPAY ==
[2024-05-11 08:06] VITALS: BP 112/70; PULSE 74; TEMP 36.9; O2SAT 97
--- NOTE | 2024-05-11 08:06 | MHC.OFFWIV ---
Intake Vital Signs 05/11/24 08:06 Weight 211 lb BP 112/70 Blood Pressure Location Lt brachial Position Sitting Pulse 74 Pulse Source Pulse Oximeter Temp 98.4 F Temp Source Oral Pulse Oximetry (%) 97 Oxygen Delivery Method Room Air Intake Visit Reasons: EP-cough, b/l ear block, sore throat, nose meka. Intake Note: Patient here for sinus pressure, runny nose and congested, bilat ear blockage. Patient Tobacco Use Status: Current everyday Tobacco user Allergies No Known Allergies [No Known Allergies*] Allergy (Verified 05/11/24 08:11) Do you need a note to return to daycare/school/sports/work: Yes HPI EP-cough, b/l ear block, sore throat, nose meka. HPI Details This note is constructed using voice recognition software. While every effort has been made to ensure accuracy, parachute cushion installer errors may have been included. The patient is a 39 year old female who presents to the clinic today with sinus congestion, ear congestion, and sore throat for the past 2 1/2 weeks worsening since onset. She denies fever, chills, dyspnea. Sinus pressure feels like it is pushing down on her teeth. 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, 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 Housing: Apartment Are you a primary patient care secretary to a significant other at home: No Do you presently have visiting nurse or other home services: No Alcohol intake: current Alcohol intake frequency: a few times a month Comment: abdomne Patient Tobacco Use Status: Current everyday Tobacco user Tobacco use type: Cigarette Cigarette Packs Per Day: 0.25 Cigarettes Per Day: 6 Years Smoked: 20+ e-Cigarette/Vaping Use: Never Used service: No Current occupational status: employed Sexual orientation: Straight/Heterosexual Gender identity: Female Cognitive needs: No Hearing needs: No Vision needs: No Female Reproductive History Menstrual Age of Menarche: 9 Review of Systems Const All systems reviewed & are unremarkable except as noted in HPI and below Physical Exam Vital Signs: Last Vital Signs Temp 98.4 F 05/11/24 08:06 Pulse 74 05/11/24 08:06 BP 112/70 05/11/24 08:06 Pulse Ox 97 05/11/24 08:06 Oxygen Delivery Method Room Air 05/11/24 08:06 Const General: cooperative, healthy appearing, comfortable and no acute distress Orientation/consciousness: patient oriented x3 Limitations: no limitations HEENT Head: Yes normal to inspection Ears: hearing grossly normal bilaterally, external ears normal and TM's normal bilaterally General nose exam: Normal external nose present, Normal nares present, Abnormal mucous membranes and turbinates present erythematous and Nasal discharge present purulent Face and sinus: Yes normal facial exam and Yes sinus tenderness Mouth: Normal oral and palatal mucosa present and moist mucous membranes Throat: Yes posterior oropharynx normal, Yes tonsils normal and Yes uvula midline Eyes General: appearance normal, both eyes and all related structures Neck Neck: Yes normal visual inspection Resp Effort & Inspection: normal respiratory effort, able to speak in complete sentences, Actively coughing, no respiratory distress, not tachypneic, no tripod positioning and no use of accessory muscles Auscultation: clear to auscultation bilaterally Cardio Rate: regular rate Rhythm: regular rhythm Heart sounds: normal S1 and S2 Skin General skin exam: no rashes or lesions noted Neuro General: patient oriented x3 Extrem General: Yes normal to inspection and Yes no clubbing, cyanosis or edema Assessment & Plan Assessment & Plan (1) Sinusitis: Code(s): J32.9 - Chronic sinusitis, unspecified Qualifiers: Sinusitis location: maxillary Chronicity: acute Recurrence: non-recurrent Qualified Code(s): J01.00 - Acute maxillary sinusitis, unspecified Plan: Supportive measures encouraged and reviewed. Advised consideration of sinus rinse if needed. Antibiotic sent to requested pharmacy, advised patient to take antibiotics until completed and not to stop if feeling better, unless the patient has side effects. Advised patient to follow up with primary care provider with worsening or failure to resolve. Plan See above for full details and plan. Medications: New amoxicillin-pot clavulanate 875-125 mg 1 tab PO BID 10 days 20 tabs 0RF Coding Level of Care Code Est Pt Level 3 (78468) Diagnoses Acute non-recurrent maxillary sinusitis J01.00 Sinusitis location: maxillary Chronicity: acute Recurrence: non-recurrent
== END 2024-05-11 08:50 | disposition home or self-care (01) ==
PROVIDERS: PCP Internal Medicine; Visit Provider Registered Nurse
DX: J01.00 Acute maxillary sinusitis, unspecified (principal)

== ENCOUNTER → 2024-05-11 08:02 | Outpatient (BNVA) | payer BC, SELFPAY | PROVIDERS: PCP Internal Medicine ==

== ENCOUNTER 2024-05-16 13:31 | Outpatient (AMB) | payer BC, SELFPAY ==
[2024-05-16 13:52] VITALS: BP 106/76; PULSE 74; O2SAT 97; BMI 28.6
--- NOTE | 2024-05-16 13:52 | A.OFFPC_ITS ---
Vital Signs 05/16/24 13:52 Height 6 ft Weight 211 lb BMI 28.6 BP 106/76 Blood Pressure Location Lt brachial Position Sitting Pulse 74 Pulse Source Pulse Oximeter Pulse Oximetry (%) 97 Oxygen Delivery Method Room Air Intake Visit Reasons: 5M F/U Intake Note: Pt is here today for 5 months follow up visit. Allergies No Known Allergies [No Known Allergies*] Allergy (Verified 05/16/24 13:57) Medication List - Last Reconciled 05/16/24 by Mine Chen MD amoxicillin-pot clavulanate 875-125 mg 1 tab PO BID 10 days L. acidophilus/Bifid. animalis (Daily Probiotic) PO levonorgestrel (Mirena) intrauterine mecobalamin (vitamin B12) 1,000 mcg PO DAILY omeprazole 20 mg PO DAILY sertraline 50 mg PO DAILY triamcinolone acetonide 0.1% 1 appl topical DAILY Tobacco use date assessed: 05/16/24 Dental Screening Dental Screen Date: 05/16/24 Did you have a dental visit in the last 12 months?: Yes Did you have a dental problem in the last 6 months where you did not have access to dental care?: No Was dental information given to patient?: Patient has dentist HPI 5M F/U HPI Details Patient presents for the follow-up on hyperlipidemia and vitamin B12 deficiency. She has not been compliant taking vitamin B12 supplement. Patient has been under lot of stress her son had syncopal episode and is being workup for seizure disorder. [facility] Medical History (Updated 05/16/24 @ 15:05 by Mine Chen MD) Family history of breast cancer Family history of ovarian cancer COVID-19 vaccine series completed Environmental allergies Cervical cancer screening Eczema Gallstones depression Depression with anxiety Surgical History Hx of cholecystectomy History of wisdom tooth extraction No pertinent past surgical history Family History Father Bladder cancer Cancer of prostate Substance use disorder Mother Breast cancer, Onset Age: 47 Sister Cervical cancer Maternal Grandmother Ovarian cancer Social History Household Members Other:: , 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, 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, 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 Housing: Apartment Are you a primary team primary care physician to a significant other at home: No Do you presently have visiting nurse or other home services: No Alcohol intake: current Alcohol intake frequency: a few times a month Comment: abdomne Patient Tobacco Use Status: Current everyday Tobacco user Tobacco use type: Cigarette Cigarette Packs Per Day: 0.25 Cigarettes Per Day: 6 Years Smoked: 20+ e-Cigarette/Vaping Use: Never Used service: No Current occupational status: employed Sexual orientation: Straight/Heterosexual Gender identity: Female Cognitive needs: No Hearing needs: No Vision needs: No Female Reproductive History Menstrual Age of Menarche: 9 Questionnaire PHQ-9 Over the last 2 weeks, how often have you been bothered by any of the following problems? 1. Little interest or pleasure in doing things: not at all 2. Feeling down, depressed, or hopeless: not at all 3. Trouble falling or staying asleep, or sleeping too much: not at all 4. Feeling tired or having little energy: not at all 5. Poor appetite or overeating: not at all 6. Feeling bad about yourself - or that you are a failure or have let yourself or your family down: not at all 7. Trouble concentrating on things, such as reading the newspaper or watching television: not at all 8. Moving or speaking so slowly that other people could have noticed. Or the opposite - being so fidgety or restless that you have been moving around a lot more than usual: not at all 9. Thoughts that you would be better off or of hurting yourself in some way: not at all Total score: 0 Depression Screening Interpretation: Negative Depression Screening Done: Yes [id number] - PHQ-9 Billing: Yes Source: Developed by Drs. Michael Hagen, Yolie Camacho, Lee Gregorio and colleagues, with an educational greg from [employer]. Thrive Questionnaire Date Thrive assessed: 05/16/24 I am a: Patient What is your living situation today?: I have a steady place to live Within the past 12 months, did the food you bought not last and you didn't have the money to get more?: Never true Within the past 12 months, did you worry whether your food would run out before you got money to buy more?: Never true Do you have trouble paying for medicines?: No Do you have trouble getting transportation to medical appointments?: No Do you have trouble paying your heating and electricity bill?: No Do you have trouble taking care of your child, family member or friend?: No Do you have trouble with day-to-day activities such as bathing, preparing meals, shopping, managing finances, etc.?: No Are you currently unemployed and looking for a job?: No Are you interested in more education?: No Please select the resources that you would like help with: None Currently or been in a relationship where the following occur: No concerns repor apryl THRIVE Score: 0 AUDIT C Alcohol Use Questionnaire (AUDIT-C) 1. How often do you have a drink containing alcohol?: Monthly or less 2. How many drinks containing alcohol do you have on a typical day when you are drinking?: 1 or 2 3. How often do you have six or more drinks on one occasion?: Less than monthly Total Score: 2 WILLY-7 AMB Questionnaire WILLY-7 Date WILLY - 7 assessed: 05/16/24 Feeling nervous, anxious, or on edge: 0 = Not at all Not being able to stop or control worryin = Not at all Worrying too much about different things: 0 = Not at all Trouble relaxin = Not at all Being so restless that it is hard to sit still: 0 = Not at all Becoming easily annoyed or irritable: 0 = Not at all Feeling afraid as if something awful might happen: 0 = Not at all Total WILLY-7 score (0-4 normal; 5-9 mild; 10-14 moderate; 15-21 severe): 0 Source: Developed by Drs. Michael Hagen, Yolie Camacho, Lee Gregorio and colleagues, with an educational greg from [employer]. WILLY-7 Assessment Billing WILLY-7 Assessment Tool: WILLY-7 Assessment 48425 Review of Systems Const All systems reviewed & are unremarkable except as noted in HPI and below ENT Reports no additional complaints Card Reports no additional complaints Resp Reports no additional complaints GI Reports no additional complaints Physical exam (Primary Care) Vital Signs: Last Vital Signs Pulse 74 05/16/24 13:52 BP 106/76 05/16/24 13:52 Pulse Ox 97 05/16/24 13:52 Oxygen Delivery Method Room Air 05/16/24 13:52 BMI result Body Mass Index 28.6 Tobacco/Smoking Status: Tobacco use Status Tobacco use date assessed 05/16/24 05/16/24 13:59 Patient Tobacco Use Status Current everyday Tobacco 05/16/24 13:54 Tobacco use type Cigarette 05/16/24 13:54 e-Cigarette/Vaping Use Never Used 05/16/24 13:54 PHQ-9: PHQ-9 Score PHQ-9: Total score 0 05/16/24 14:01 Depression Screening Interpretation: Negative Thrive Assessment: Date of Thrive Assessment Date Thrive assessed 05/16/24 05/16/24 14:01 Currently or been in a relationship where the following occur: No concerns reported Const General: no acute distress Eyes General: appearance normal, both eyes and all related structures Neck Neck: Yes supple Resp Effort & Inspection: normal respiratory effort Auscultation: clear to auscultation bilaterally Cardio Rhythm: regular rhythm Heart sounds: S1 normal heart sound present and S2 normal heart sound present GI Inspection: Yes normal to inspection Palpation (GI): Soft to palpation Percussion: Yes normal to percussion Coding Level of Care Code Est Pt Level 3 (09504) Diagnoses Low vitamin B12 level R7. Annual physical exam Z00. Hyperlipidemia E78.5 Additional Codes WILLY-7 Assessment Billing - WILLY-7 Assessment Tool: WILLY-7 Assessment [id number] ([id number]) Assessment & Plan Assessment & Plan (1) Low vitamin B12 level: Code(s): R7.89 - Other specified abnormal findings of blood chemistry Category: Medical Plan: Compliance with B12 supplement discussed with the patient. She will have a fasting blood work in 2 months (2) Annual physical exam: Code(s): Z00.00 - Encounter for general adult medical examination without abnormal findings Category: Medical Plan: Well-balanced diet regular physical activity discussed with the patient she will follow-up for physical in November (3) Hyperlipidemia: Code(s): E78.5 - Hyperlipidemia, unspecified Category: Medical Plan: Continue low-cholesterol diet Orders: Orders Vitamin B12 and Folate 2 Months R7 - Other specified abnormal findings of blood chemistry Lipid Panel 2 Months R7 - Other specified abnormal findings of blood chemistry Comprehensive [place]. Panel Fast 2 Months Z00.00 - Encounter for general adult medical examination without abnormal findings Complete Blood Count Auto Diff 2 Months R79.89 - Other specified abnormal findings of blood chemistry, Z00.00 - Encounter for general adult medical examination without abnormal findings
== END 2024-05-16 15:10 | disposition home or self-care (01) ==
PROVIDERS: PCP Internal Medicine; Visit Provider Internal Medicine
DX: R79.89 Other specified abnormal findings of blood chemistry (principal); Z00.00 Encounter for general adult medical examination without abnormal findings; E78.5 Hyperlipidemia, unspecified

== ENCOUNTER → 2024-05-16 13:31 | Outpatient (BNVA) | payer BC, SELFPAY | PROVIDERS: PCP Internal Medicine; Visit Provider Internal Medicine | DX: E53.8 Deficiency of other specified B group vitamins (principal); E78.5 Hyperlipidemia, unspecified; Z91.148 Patient's other noncompliance with medication regimen for other reason | CPT/HCPCS: 96127 ==

== ENCOUNTER 2024-05-25 13:46 | Outpatient (AMB) | payer BC, SELFPAY ==
--- NOTE | 2024-05-25 13:46 | A.OFFVIS_ITS ---
Intake Visit Reasons: colpo results Allergies No Known Allergies [No Known Allergies*] Allergy (Verified 05/16/24 13:57) HPI Comments Details: The patient is scheduled tele health visit post colpo for follow-up. The patient is doing well with no complaints. The pathology showed the following: A. Endocervix, curettage: - Low-grade squamous intraepithelial lesion (CAROL 1). - Background inflamed cervical transformation zone mucosa. B. Cervix, 1 o'clock, biopsy: Inflamed cervical transformation zone and squamous mucosa with reactive changes. C. Cervix, 4 o'clock, biopsy: Squamous mucosa and rare endocervical epithelium within normal limits. D. Cervix, 6 o'clock, biopsy: Inflamed cervical transformation zone mucosa with reactive changes. E. Cervix, 7 o'clock, biopsy: - Low-grade squamous intraepithelial lesion (CAROL 1). - Background inflamed cervical transformation zone mucosa. F. Cervix, 9 o'clock, biopsy: Inflamed cervical transformation zone mucosa with reactive changes. G. Cervix, 11 o'clock, biopsy: Inflamed cervical transformation zone mucosa with reactive changes. H. Cervix, 12 o'clock, biopsy: Inflamed cervical transformation zone mucosa with reactive changes PFSH Medical History Family history of breast cancer Family history of ovarian cancer COVID-19 vaccine series completed Environmental allergies Cervical cancer screening Eczema Gallstones depression Depression with anxiety Surgical History Hx of cholecystectomy History of wisdom tooth extraction No pertinent past surgical history Family History Father Bladder cancer Cancer of prostate Substance use disorder Mother Breast cancer, Onset Age: 47 Sister Cervical cancer Maternal Grandmother Ovarian cancer Social History Household Members Other:: , 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, 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, 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 Housing: Apartment Are you a primary career services assistant to a significant other at home: No Do you presently have visiting nurse or other home services: No Alcohol intake: current Alcohol intake frequency: a few times a month Comment: abdomne Patient Tobacco Use Status: Current everyday Tobacco user Tobacco use type: Cigarette Cigarette Packs Per Day: 0.25 Cigarettes Per Day: 6 Years Smoked: 20+ e-Cigarette/Vaping Use: Never Used service: No Current occupational status: employed Sexual orientation: Straight/Heterosexual Gender identity: Female Cognitive needs: No Hearing needs: No Vision needs: No Female Reproductive History Menstrual Age of Menarche: 9 Review of Systems Const All systems reviewed & are unremarkable except as noted in HPI and below Reports as per HPI and Reports no additional complaints GI Reports no additional complaints Reports no additional complaints Quality Reporting (2019) Adult ([facility] 138/09/30/68) Smoking risk assessment performed?: Yes Patient Tobacco Use Status: Current everyday Tobacco user Telehealth Telehealth Telehealth Platform: Telephone Location of provider rendering services: practice address Location of patient: address on file Patient Identification confirmed using: Name, : Yes Telehealth method: video Patient verbally consented to treatment: Yes Patient verbally consented to billing insurance company: Yes Patient informed of any privacy concerns related to visit: Yes Assessment & Plan Assessment & Plan (1) Dysplasia of cervix, low grade (CAROL 1): Code(s): N87.0 - Mild cervical dysplasia Category: Medical Plan: Discussed with the patient the pathology results of the colposcopy biopsies & endocervical curettage ( mild dysplasia-CAROL 1). Discussed with the patient the sensitivity specificity, positive and negative predictive value in detecting cervical cancer in addition discussed the regression, persistence and progression rates. Recommended co-testing in 12 months, if cytology and or HPV are abnormal will proceed was colposcopy biopsy and endocervical curettage. Instructions given to the patient to schedule a co test appointment in 1 year. All questions answered the patient verbalized understanding. I spent a total of 20 minutes reviewing the chart, talking to the patient via video and documenting in the medical record. Coding Level of Care Code Tele Est Pt Level 1 (62334) Diagnoses Dysplasia of cervix, low grade (CAROL 1) N87.0
== END 2024-05-25 15:41 | disposition home or self-care (01) ==
LOC: HO.HWS 13:46
PROVIDERS: PCP Internal Medicine; Visit Provider Obstetrics & Gynecology
DX: N87.0 Mild cervical dysplasia (principal)
CPT/HCPCS: 99211

== ENCOUNTER → 2024-05-25 13:46 | Outpatient (BNVA) | payer BC, SELFPAY | PROVIDERS: PCP Internal Medicine; Visit Provider Obstetrics & Gynecology ==

== ENCOUNTER 2024-07-08 10:22 | Outpatient (AMB) | payer BC, SELFPAY ==
[2024-07-08 12:16] VITALS: BP 100/70; PULSE 61; TEMP 36.8; O2SAT 98; BMI 29.0
--- NOTE | 2024-07-08 12:16 | AM.OFFWIN_ITS ---
Intake Vital Signs 07/08/24 12:16 Height 6 ft Weight 214 lb BMI 29.0 BP 100/70 Blood Pressure Location Lt brachial Position Sitting Pulse 61 Pulse Source Pulse Oximeter Temp 98.3 F Temp Source Oral Pulse Oximetry (%) 98 Oxygen Delivery Method Room Air Intake Visit Reasons: EP Rt ear pain Intake Note: Pt is here today c/o Rt ear pain x4days Patient Tobacco Use Status: Current everyday Tobacco user Allergies No Known Allergies [No Known Allergies*] Allergy (Verified 10/24/24 08:22) HPI EP Rt ear pain HPI Details Few days of feeling like she had water in both of her ears, able to hear fluid moving, especially on the right side. She tried to equilibrate her right ear and had severe right ear pain, and more painful since then. No fever or chills, nausea vomiting or diarrhea, headache or dizziness or vertigo, weakness, myalgias or malaise, nausea vomiting diarrhea or other significant associated symptoms reported. No other respiratory symptoms associated, and she did not check for COVID. 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, 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, 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 Housing: Apartment Are you a primary home care manager rn to a significant other at home: No Do you presently have visiting nurse or other home services: No Alcohol intake: current Alcohol intake frequency: a few times a month Comment: abdomne Patient Tobacco Use Status: Former Tobacco user (08/30/24) Tobacco use type: Cigarette Cigarette Packs Per Day: 0.25 Cigarettes Per Day: 6 Years Smoked: 20+ e-Cigarette/Vaping Use: Never Used service: No Current occupational status: employed Sexual orientation: Straight/Heterosexual Gender identity: Female Cognitive needs: No Hearing needs: No Vision needs: No Female Reproductive History Menstrual Age of Menarche: 9 Physical Exam Vital Signs: Last Vital Signs Temp 98.3 F 07/08/24 12:16 Pulse 61 07/08/24 12:16 BP 100/70 07/08/24 12:16 Pulse Ox 98 07/08/24 12:16 Oxygen Delivery Method Room Air 07/08/24 12:16 BMI result Body Mass Index 29.0 HEENT Ears: TM abnormal (serous otitis on the left, otitis media on the right) not obstructed by cerumen, not perforated and not retracted General nose exam: Normal external nose present Assessment & Plan Assessment & Plan (1) Otitis media: Code(s): H66.90 - Otitis media, unspecified, unspecified ear Qualifiers: Chronicity: acute Laterality: right Otitis media type: suppurative Recurrence: non-recurrent Spontaneous tympanic membrane rupture: without spontaneous rupture Qualified Code(s): H66.001 - Acute suppurative otitis media without spontaneous rupture of ear drum, right ear (2) Serous otitis media: Code(s): H65.90 - Unspecified nonsuppurative otitis media, unspecified ear Qualifiers: Chronicity: acute Laterality: left Recurrence: non-recurrent Qualified Code(s): H65.02 - Acute serous otitis media, left ear Plan She has serous otitis on the left side, and an otitis media on the right side. Likely induced from her trying to equilibrate the right Eustachian tube. I wrote her for a 10 day course of Augmentin as first-line treatment for this. There was no perforations, however the top of her ear canal has what looks like a cleft and she has some polyps visible. I advised that she have the right ear looked at when she has her next primary care appointment, unless her symptoms persist or worsen with this course and then she will follow up as needed. She knows to go to the emergency department with worrisome symptoms. Medications: New amoxicillin-pot clavulanate 875-125 mg 1 tab PO BID 20 tabs 0RF 10 days Coding Level of Care Code Est Pt Level 4 (02325) Diagnoses Non-recurrent acute suppurative otitis media of right ear without spontaneous rupture of tympanic membrane H66.001 Chronicity: acute Laterality: right Otitis media type: suppurative Recurrence: non-recurrent Spontaneous tympanic membrane rupture: without spontaneous rupture Non-recurrent acute serous otitis media of left ear H65.02 Chronicity: acute Laterality: left Recurrence: non-recurrent
== END 2024-07-08 13:33 | disposition home or self-care (01) ==
PROVIDERS: PCP Internal Medicine; Visit Provider Physician Assistant Medical
DX: H66.001 Acute suppurative otitis media without spontaneous rupture of ear drum, right ear (principal); H65.02 Acute serous otitis media, left ear

== ENCOUNTER 2024-07-13 13:46 | Outpatient (AMB) | payer BC, SELFPAY ==
[2024-07-13 14:28] VITALS: BP 106/68; PULSE 70; O2SAT 98; BMI 28.7
--- NOTE | 2024-07-13 14:28 | MHC.PC.OV ---
Vital Signs 07/13/24 14:28 Height 6 ft Weight 212 lb BMI 28.7 BP 106/68 Blood Pressure Location Rt brachial Position Sitting Pulse 70 Pulse Source Pulse Oximeter Pulse Oximetry (%) 98 Oxygen Delivery Method Room Air Intake Visit Reasons: R ear ringing and pain not better Intake Note: Pt is here today for sick visit. Pt c/o constant ringing in her R ear. Pt also c/o a lot congestion.Pt states that the walk in provider told her that there was blood and fluid in her R ear and she was prescribed Amoxicillin. Allergies No Known Allergies [No Known Allergies*] Allergy (Verified 07/13/24 14:53) Medication List - Last Reconciled 07/13/24 by Mine Chen MD amoxicillin-pot clavulanate 875-125 mg 1 tab PO BID 10 days azithromycin For 250 mg dose pack: take 500 mg today (day 1), then 250 mg for 4 days (days 2-5) PO L. acidophilus/Bifid. animalis (Daily Probiotic) PO levonorgestrel (Mirena) intrauterine mecobalamin (vitamin B12) 1,000 mcg PO DAILY omeprazole 20 mg PO DAILY prednisone 10 mg PO DAILY sertraline 50 mg PO DAILY Tobacco use date assessed: 05/16/24 Dental Screening Dental Screen Date: 05/16/24 HPI R ear ringing and pain not better HPI Details Patient presents complaining of persistent right ear pain, decreased hearing, tinnitus and feeling of fullness in the right ear for 3 weeks. She has been taking Augmentin for 5 days without significant relief. Patient has been taking [id number] Advil sinus cold. She denies fever chills headaches cough. 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, 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, 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 Housing: Apartment Are you a primary associate director career services to a significant other at home: No Do you presently have visiting nurse or other home services: No Alcohol intake: current Alcohol intake frequency: a few times a month Comment: abdomne Patient Tobacco Use Status: Current everyday Tobacco user Tobacco use type: Cigarette Cigarette Packs Per Day: 0.25 Cigarettes Per Day: 6 Years Smoked: 20+ e-Cigarette/Vaping Use: Never Used service: No Current occupational status: employed Sexual orientation: Straight/Heterosexual Gender identity: Female Cognitive needs: No Hearing needs: No Vision needs: No Female Reproductive History Menstrual Age of Menarche: 9 Questionnaire Thrive Questionnaire Date Thrive assessed: 05/16/24 I am a: Patient What is your living situation today?: I have a steady place to live Within the past 12 months, did the food you bought not last and you didn't have the money to get more?: Never true Within the past 12 months, did you worry whether your food would run out before you got money to buy more?: Never true Do you have trouble paying for medicines?: No Do you have trouble getting transportation to medical appointments?: No Do you have trouble paying your heating and electricity bill?: No Do you have trouble taking care of your child, family member or friend?: No Do you have trouble with day-to-day activities such as bathing, preparing meals, shopping, managing finances, etc.?: No Are you currently unemployed and looking for a job?: No Are you interested in more education?: No Please select the resources that you would like help with: None Currently or been in a relationship where the following occur: No concerns reported THRIVE Score: 0 WILLY-7 AMB Questionnaire WILLY-7 Date WILLY - 7 assessed: 05/16/24 Source: Developed by Drs. Michael Hagen, Yolie Camacho, Lee Gregorio and colleagues, with an educational greg from [employer] Review of Systems Const All systems reviewed & are unremarkable except as noted in HPI and below Eyes Reports no additional complaints ENT Reports no additional complaints Card Reports no additional complaints Resp Reports no additional complaints GI Reports no additional complaints Reports no additional complaints Physical exam (Primary Care) Vital Signs: Last Vital Signs Pulse 70 07/13/24 14:28 BP 106/68 07/13/24 14:28 Pulse Ox 98 07/13/24 14:28 Oxygen Delivery Method Room Air 07/13/24 14:28 BMI result Body Mass Index 28.7 Tobacco/Smoking Status: Tobacco use Status Tobacco use date assessed 05/16/24 07/13/24 14:28 Patient Tobacco Use Status Current everyday Tobacco 07/13/24 14:28 Tobacco use type Cigarette 07/13/24 14:28 e-Cigarette/Vaping Use Never Used 07/13/24 14:28 Thrive Assessment: Date of Thrive Assessment Date Thrive assessed 05/16/24 07/13/24 14:28 Currently or been in a relationship where the following occur: No concerns reported Const General: no acute distress HENMT Head: Yes normal to inspection Ears: EAC's normal, TM abnormal (right) bulging and erythematous and Leyva (Lateralize to the right) Face and sinus: Yes normal facial exam and No sinuses nontender Throat: Yes posterior oropharynx normal Eyes General: appearance normal, both eyes and all related structures Neck Neck: Yes supple Resp Effort & Inspection: normal respiratory effort Auscultation: clear to auscultation bilaterally Cardio Rhythm: regular rhythm Heart sounds: S1 normal heart sound present and S2 normal heart sound present Coding Level of Care Code Est Pt Level 3 (31488) Diagnoses Otitis media H66.90 Assessment & Plan Assessment & Plan (1) Otitis media: Code(s): H66.90 - Otitis media, unspecified, unspecified ear Category: Medical Plan: Add Z-Matteo and prednisone taper. Patient was advised to use Flonase nasal spray and continue decongestant follow-up in 1 week Medications: New azithromycin For 250 mg dose pack: take 500 mg today (day 1), then 250 mg for 4 days (days 2-5) PO 6 tabs 0RF prednisone 4 tabl qd x 3 days, then 3 tabl qd x 3 days, then 2 tabl qd x 3days, then 1 tabl qd 10 mg PO DAILY 30 tabs 0RF
== END 2024-07-13 15:26 | disposition home or self-care (01) ==
PROVIDERS: PCP Internal Medicine; Visit Provider Internal Medicine
DX: H66.90 Otitis media, unspecified, unspecified ear (principal)

== ENCOUNTER 2024-07-20 10:57 | Outpatient (AMB) | payer BC, SELFPAY ==
[2024-07-20 11:05] VITALS: BP 110/70; PULSE 71; O2SAT 96; BMI 28.7
--- NOTE | 2024-07-20 11:05 | MHC.PC.OV ---
Vital Signs 07/20/24 11:05 Height 6 ft Weight 212 lb BMI 28.7 BP 110/70 Blood Pressure Location Lt brachial Position Sitting Pulse 71 Pulse Source Pulse Oximeter Pulse Oximetry (%) 96 Oxygen Delivery Method Room Air Intake Visit Reasons: 1 week follow up Intake Note: Pt is here today for 1 week follow up visit. Allergies No Known Allergies [No Known Allergies*] Allergy (Verified 07/20/24 11:07) Medication List - Last Reconciled 07/20/24 by Mine Chen MD L. acidophilus/Bifid. animalis (Daily Probiotic) PO levonorgestrel (Mirena) intrauterine mecobalamin (vitamin B12) 1,000 mcg PO DAILY omeprazole 20 mg PO DAILY prednisone 10 mg PO DAILY sertraline 50 mg PO DAILY Tobacco use date assessed: 05/16/24 Dental Screening Dental Screen Date: 05/16/24 HPI 1 week follow up HPI Details Patient presents for the follow-up of otitis media feeling better reports improving hearing and decrease pressure in the ears. Patient complains of postnasal drip has been using Flonase on and off with good relief PFSH Medical History Family history of breast cancer Family history of ovarian cancer COVID-19 vaccine series completed Environmental allergies Cervical cancer screening Eczema Gallstones depression Depression with anxiety Surgical History Hx of cholecystectomy History of wisdom tooth extraction No pertinent past surgical history Family History Father Bladder cancer Cancer of prostate Substance use disorder Mother Breast cancer, Onset Age: 47 Sister Cervical cancer Maternal Grandmother Ovarian cancer Social History Household Members Other:: , 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, 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, 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 Housing: Apartment Are you a primary daycare manager to a significant other at home: No Do you presently have visiting nurse or other home services: No Alcohol intake: current Alcohol intake frequency: a few times a month Comment: abdomne Patient Tobacco Use Status: Current everyday Tobacco user Tobacco use type: Cigarette Cigarette Packs Per Day: 0.25 Cigarettes Per Day: 6 Years Smoked: 20+ Packs Per Year: 0 Packs per year/per ci.00 e-Cigarette/Vaping Use: Never Used service: No Current occupational status: employed Sexual orientation: Straight/Heterosexual Gender identity: Female Cognitive needs: No Hearing needs: No Vision needs: No Female Reproductive History Menstrual Age of Menarche: 9 Questionnaire Thrive Questionnaire Date Thrive assessed: 05/16/24 I am a: Patient What is your living situation today?: I have a steady place to live Within the past 12 months, did the food you bought not last and you didn't have the money to get more?: Never true Within the past 12 months, did you worry whether your food would run out before you got money to buy more?: Never true Do you have trouble paying for medicines?: No Do you have trouble getting transportation to medical appointments?: No Do you have trouble paying your heating and electricity bill?: No Do you have trouble taking care of your child, family member or friend?: No Do you have trouble with day-to-day activities such as bathing, preparing meals, shopping, managing finances, etc.?: No Are you currently unemployed and looking for a job?: No Are you interested in more education?: No Please select the resources that you would like help with: None Currently or been in a relationship where the following occur: No concerns reported THRIVE Score: 0 WILLY-7 AMB Questionnaire WILLY-7 Date WILLY - 7 assessed: 05/16/24 Source: Developed by Drs. Michael Hagen, Yolie Camacho, Lee Gregorio and colleagues, with an educational greg from [employer]. Review of Systems Const All systems reviewed & are unremarkable except as noted in HPI and below Eyes Reports no additional complaints ENT Reports no additional complaints Card Reports no additional complaints Resp Reports no additional complaints GI Reports no additional complaints Physical exam (Primary Care) Vital Signs: Last Vital Signs Pulse 71 07/20/24 11:05 BP 110/70 07/20/24 11:05 Pulse Ox 96 07/20/24 11:05 Oxygen Delivery Method Room Air 07/20/24 11:05 BMI result Body Mass Index 28.7 Tobacco/Smoking Status: Tobacco use Status Tobacco use date assessed 05/16/24 07/20/24 11:06 Patient Tobacco Use Status Current everyday Tobacco 07/20/24 11:06 Tobacco use type Cigarette 07/20/24 11:06 e-Cigarette/Vaping Use Never Used 07/20/24 11:06 Thrive Assessment: Date of Thrive Assessment Date Thrive assessed 05/16/24 07/20/24 11:06 Currently or been in a relationship where the following occur: No concerns reported Const General: no acute distress HENMT Head: Yes normal to inspection Ears: hearing grossly normal bilaterally and TM's normal bilaterally Face and sinus: Yes normal facial exam Eyes General: appearance normal, both eyes and all related structures Neck Neck: Yes no lymphadenopathy and Yes supple Resp Effort & Inspection: normal respiratory effort Auscultation: clear to auscultation bilaterally Cardio Rhythm: regular rhythm Heart sounds: S1 normal heart sound present and S2 normal heart sound present Coding Level of Care Code Est Pt Level 3 (65337) Diagnoses Otitis media H66.90 Assessment & Plan Assessment & Plan (1) Otitis media: Code(s): H66.90 - Otitis media, unspecified, unspecified ear Category: Medical Plan: Continue Flonase and prednisone taper. patient was advised to take Claritin as needed for chronic postnasal drip
== END 2024-07-20 11:48 | disposition home or self-care (01) ==
PROVIDERS: PCP Internal Medicine; Visit Provider Internal Medicine
DX: H66.90 Otitis media, unspecified, unspecified ear (principal)

== ENCOUNTER → 2024-07-20 10:57 | Outpatient (BNVA) | payer BC, SELFPAY | PROVIDERS: PCP Internal Medicine; Visit Provider Internal Medicine ==

== ENCOUNTER 2024-07-21 07:03 | Outpatient (REF) | payer BC, SELFPAY ==
[2024-07-21 11:24] LABS: Alanine Aminotransferase 14 U/L (0-31); Alkaline Phosphatase 56 U/L (39-117); Anion Gap 9 (12-20); Aspartate Amino Transferase 15 U/L (5-31); Bilirubin Total 0.7 mg/dL (0.0-1.0); Blood Urea Nitrogen 11 mg/dL (9-16); Calcium 8.9 mg/dL (8.4-10.2); Carbon Dioxide 29 mmol/L (22-29); Chloride 107 mmol/L (96-108); Cholesterol 188 mg/dL (<200); Estimated Glomerular Filt Rate > 60; Glucose Fasting 87 mg/dL (60-99); HDL Cholesterol 51 mg/dL (>40); LDL Cholesterol Calculated 121 mg/dL (<100); Potassium 3.4 mmol/L (3.3-5.1); Sodium 142 mmol/L (135-145); Total Protein 6.7 g/dL (6.5-8.0); Triglycerides 82 mg/dL (<150)
[2024-07-21 11:35] LABS: Folate 9.1 ng/mL (> or = 4.0); Vitamin B12 1363 pg/mL (200-900)
== END 2024-07-21 07:04 | disposition home or self-care (01) ==
LOC: HO.HMGCLDS 07:03
PROVIDERS: PCP Internal Medicine; Visit Provider Internal Medicine
DX: Z00.00 Encounter for general adult medical examination without abnormal findings (principal); R79.89 Other specified abnormal findings of blood chemistry
CPT/HCPCS: 36415; 80053; 80061; 82607; 82746

== ENCOUNTER 2024-09-05 08:00 | Outpatient (AMB) | payer BC, SELFPAY ==
--- OUTSIDE RECORDS SUMMARY | 2024-09-05 08:06 | XMS_ITS | Patient Health Record ---
Author Organization [facility] Address [address] [place] [address] Care Team Providers Care Periodicals Library Assistant Name Role Phone Mine Chen MD Primary Care Provider Agustin Martins Jr Unavailable ALLERGIES Allergen (clinical drug ingredient) Drug/Non Drug Allergy documented on EMR Reaction Allergy Type Onset Date Status Mold Unknown Allergy Active REASON FOR REFERRAL No Information MEDICATIONS Medication SIG (Take, Route, Frequency, Duration) Notes Start Date End Date Status buPROPion HCl ER (XL) 150 MG 1 tablet in the morning Orally Once a day for 30 day(s) Active busPIRone HCl 5 MG 1 tablet Orally Twic e a day Active IMMUNIZATIONS Vaccine Route Administration Date Status Comme nts Influenza Unknown 07/07/2021 Refused SOCIAL HISTORY Tobacco Use: Social History Observation Description Date Details (start date - stop date) Current Smoker NA - NA Sex Assigned At : Social History Observation Description Sex Assigned At Unknown Tobacco Use/Smoking Question Answer Notes Patient is a current smoker How many cigarettes a day do you smoke? 6-10 How soon after you wake up d o you smoke your first cigarette? 31-60 minutes Are you interested in quitting? Thinking about q uitting Alcohol Screen Question Answer Notes Did you have a drink contain ing alcohol in the past year? Yes How often did you have a dri nk containing alcohol in the past year? Monthly or less (1 point) How many drinks did you have on a typical day when you were drinking in the past year? 1 or 2 drinks (0 point) How often did you have 6 or more drinks on one occasion in the past year? Never (0 point) Points 1 Interpretation Negative PROBLEMS Problem Type ICD Code Onset Dates Problem Status W/U Status Risk SNOMED Code Notes Problem Gastroesophageal reflux disease, unspecified whether esophagitis present (K21.9) Active confirmed 516065893 Problem History of cholecystectomy (Z90.49) Active confirmed 835290691 Problem Right upper quadrant pain (R10.11) Active confirmed [id number] PLAN OF TREATMENT No Information Insurance Providers Payer Name Payer Address Payer Phone Subscriber Number Group Number Insured Name Patient Relationship to Insured Coverage Start Date Coverage End Date [facility] [id number] [place] [address] [phone] [id number] AYE BROWN Self - patient is the insured MEDICAL (GENERAL) HISTORY Medical History History ICD Code Anxiety/depression Eczema Surgical History Surgery Date(Month/Year) ingrown toenail 1999 wisdom teeth 2002 gallbladder 2020 Cervical cerclage
[2024-09-05 08:18] VITALS: BP 114/70; PULSE 66; RESP 16; TEMP 36.7; O2SAT 97; BMI 29.8
--- NOTE | 2024-09-05 08:18 | AM.OFFWIN_ITS ---
Intake Vital Signs 09/05/24 08:18 Height 6 ft Weight 220 lb BMI 29.8 BP 114/70 Blood Pressure Location Rt brachial Position Sitting Respiration 16 Pulse 66 Pulse Source Pulse Oximeter Temp 98.0 F Temp Source Oral Pulse Oximetry (%) 97 Oxygen Delivery Method Room Air Intake Visit Reasons: EP-nose congestion, b/l ear block, vertigo Intake Note: Pt is here today c/o nasal congestion and bilateral ear block plus vertigo Patient Tobacco Use Status: Current everyday Tobacco user Allergies No Known Allergies [No Known Allergies*] Allergy (Verified 09/05/24 08:21) HPI HPI Comments History of Present Illness Details This is a 39-year-old female with a past medical history of gastroesophageal reflux disease and depression presenting for evaluation of blockage in her ears coupled with an intermittent lightheaded sensation that has been ongoing since Wednesday. Patient states that she takes Zyrtec every other day and finds that Advil cold and sinus has also been helpful. Patient denies having any fevers, chills, sore throat or decreased hearing. [facility] Medical History Family history of breast cancer Family history of ovarian cancer COVID-19 vaccine series completed Environmental allergies Cervical cancer screening Eczema Gallstones depression Depression with anxiety Surgical History Hx of cholecystectomy History of wisdom tooth extraction No pertinent past surgical history Family History Father Bladder cancer Cancer of prostate Substance use disorder Mother Breast cancer, Onset Age: 47 Sister Cervical cancer Maternal Grandmother Ovarian cancer Social History Household Members Other:: , 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, 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, 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 Housing: Apartment Are you a primary care manager to a significant other at home: No Do you presently have visiting nurse or other home services: No Alcohol intake: current Alcohol intake frequency: a few times a month Comment: abdomne Patient Tobacco Use Status: Current everyday Tobacco user Tobacco use type: Cigarette Cigarette Packs Per Day: 0.25 Cigarettes Per Day: 6 Years Smoked: 20+ e-Cigarette/Vaping Use: Never Used service: No Current occupational status: employed Sexual orientation: Straight/Heterosexual Gender identity: Female Cognitive needs: No Hearing needs: No Vision needs: No Female Reproductive History Menstrual Age of Menarche: 9 Review of Systems Const All systems reviewed & are unremarkable except as noted in HPI and below Eyes Reports no additional complaints ENT Reports no additional complaints, Reports dizziness, Denies otalgia, Reports sinus pressure and Denies sore throat Card Reports no additional complaints Resp Reports no additional complaints GI Reports no additional complaints Reports no additional complaints Musc Reports no additional complaints Skin/Breast Reports system reviewed and no additional complaints, except as documented Neuro Reports no additional complaints and Reports dizziness Psych Reports no additional complaints Endo Reports no additional complaints Callum/Lymph Reports no additional complaints Aller/Immun Reports no additional complaints Physical Exam Vital Signs: Last Vital Signs Temp 98.0 F 09/05/24 08:18 Pulse 66 09/05/24 08:18 Resp 16 09/05/24 08:18 BP 114/70 09/05/24 08:18 Pulse Ox 97 09/05/24 08:18 Oxygen Delivery Method Room Air 09/05/24 08:18 BMI result Body Mass Index 29.8 Const General: cooperative, healthy appearing, comfortable, no acute distress, well developed, alert, awake and Physically active; No lethargic Nutritional Appearance: average body habitus Orientation/consciousness: patient oriented x3 and No lethargic Limitations: no limitations HEENT Head: Yes normal to inspection and Yes normocephalic Ears: hearing grossly normal bilaterally, external ears normal, TM's abnormal bilaterally (TMs bulging bilaterally, no erythema, mild fluid level R. ear) and EAC's normal General nose exam: Normal external nose present Face and sinus: Yes normal facial exam and Yes sinuses nontender Mouth: Normal oral and palatal mucosa present and moist mucous membranes Throat: Yes posterior oropharynx normal and Yes postnasal drainage Eyes General: appearance normal, both eyes and all related structures Conjunctivae: conjunctivae normal Sclerae: sclerae normal Pupils: Equal, round and reactive pupils present EOM: EOMs intact bilaterally Neck Lymphatic: no lymphadenopathy noted Neuro General: patient oriented x3 Cranial nerves: Yes Equal, round and reactive pupils present Psych Appearance: grossly normal Mental Status: mental status grossly normal Insight: Good insight present (Psych) Judgement: Good judgement present (Psych) Assessment & Plan Assessment & Plan (1) Acute recurrent sinusitis, unspecified: Comment: There is no evidence of an otitis media or bacterial sinusitis. Patient will be discharged home with fluticasone. Code(s): J01.91 - Acute recurrent sinusitis, unspecified Qualifiers: Sinusitis location: unspecified location Qualified Code(s): J01.91 - Acute recurrent sinusitis, unspecified Plan: Continue Zyrtec every other day and initiate intranasal steroid therapy with fluticasone once daily for at least 2 weeks. Medications: New fluticasone propionate 50 mcg/actuation administer into each nostril once daily 1 spray intranasal DAILY 16 grams 1RF Coding Level of Care Code Est Pt Level 3 (99270) Diagnoses Acute recurrent sinusitis, unspecified location J01.91 Sinusitis location: unspecified location Time Spent (min) 20
== END 2024-09-05 08:37 | disposition home or self-care (01) ==
PROVIDERS: PCP Internal Medicine; Visit Provider Physician Assistant
DX: J01.91 Acute recurrent sinusitis, unspecified (principal)

== ENCOUNTER → 2024-09-05 08:00 | Outpatient (BNVA) | payer BC, SELFPAY | PROVIDERS: PCP Internal Medicine ==

== ENCOUNTER 2024-10-24 08:18 | Outpatient (REF) | payer BC, SELFPAY ==
[2024-10-24 10:02] LABS: MANUAL DIFF FLAG NO
[2024-10-24 10:28] LABS: Basophils Percent Auto 0.6 % (0-2); Eosinophils Absolute Auto 0.2 X10*3/uL (0.0-0.4); Eosinophils Percent Auto 2.5 % (0-4); Hematocrit 40.4 % (37.0-47.0); Hemoglobin 13.1 g/dl (12.0-16.0); Imm Gran Abs Auto 0.02 X10*3/uL (0.00-0.03); Imm Gran Pct Auto 0.3 % (0.0-0.4); Lymphocytes Percent Auto 27.5 % (20-40); Mean Corpuscular HGB Conc 32.4 g/dl (31.0-35.0); Mean Corpuscular Hemoglobin 30.1 pg (27.0-33.0); Mean Corpuscular Volume 92.9 fL (80.0-98.0); Monocytes Absolute Auto 0.6 X10*3/uL (0.1-1.2); Monocytes Percent Auto 7.7 % (2-11); Neutrophils Absolute Auto 4.4 x10*3/uL (2.0-8.3); Neutrophils Percent Auto 61.4 % (45-73); Platelet Count 294 X10*3/uL (160-400); Red Blood Count 4.35 X10*6/uL (4.20-5.50); Red Cell Distribution Width 13.1 % (11.0-16.0); White Blood Count 7.1 X10*3/uL (4.8-10.8)
[2024-10-24 11:08] LABS: TSH reflex Free T4 0.73 uIU/mL (0.32-4.0)
[2024-10-24 11:19] LABS: Vitamin B12 400 pg/mL (200-900)
== END 2024-10-24 08:19 | disposition home or self-care (01) ==
LOC: HO.HMGCLDS 08:18
PROVIDERS: PCP Internal Medicine; Visit Provider Internal Medicine
DX: Z00.00 Encounter for general adult medical examination without abnormal findings (principal); R79.89 Other specified abnormal findings of blood chemistry; N87.0 Mild cervical dysplasia; H93.11 Tinnitus, right ear
CPT/HCPCS: 36415; 82306; 82607; 82746; 84443; 85025; 96127

== ENCOUNTER 2024-10-24 08:18 | Outpatient (AMB) | payer BC, SELFPAY ==
[2024-10-24 08:20] VITALS: BP 122/70; PULSE 67; TEMP 36.6; O2SAT 95; BMI 31.6
--- NOTE | 2024-10-24 08:20 | A.OFFPC_ITS ---
Vital Signs 10/24/24 08:20 Height 6 ft Weight 233 lb BMI 31.6 BP 122/70 Blood Pressure Location Lt brachial Position Sitting Pulse 67 Pulse Source Pulse Oximeter Temp 97.9 F Temp Source Oral Pulse Oximetry (%) 95 Oxygen Delivery Method Room Air Intake Visit Reasons: Annual PE Intake Note: Pt is here today for PE. Allergies No Known Allergies [No Known Allergies*] Allergy (Verified 10/24/24 08:22) Medication List - Last Reconciled 10/24/24 by Mine Chen MD fluticasone propionate 50 mcg/actuation 1 spray intranasal DAILY L. acidophilus/Bifid. animalis (Daily Probiotic) PO levonorgestrel (Mirena) intrauterine mecobalamin (vitamin B12) 1,000 mcg PO DAILY omeprazole 20 mg PO DAILY sertraline 50 mg PO DAILY Tobacco use date assessed: 10/24/24 Dental Screening Dental Screen Date: 10/24/24 Did you have a dental visit in the last 12 months?: Yes Did you have a dental problem in the last 6 months where you did not have access to dental care?: No Was dental information given to patient?: Patient has dentist HPI Annual PE HPI Details Pt presents for PE. Pt c/o persistent R ear tinnitus. She had negative MR and normal hearing test at ENT office. Patient denies any hearing lost change in balance. [facility] Medical History (Updated 10/24/24 @ 09:04 by Mine Chen MD) Family history of breast cancer Family history of ovarian cancer COVID-19 vaccine series completed Environmental allergies Cervical cancer screening Eczema Gallstones depression Depression with anxiety Surgical History Hx of cholecystectomy History of wisdom tooth extraction No pertinent past surgical history Family History Father Bladder cancer Cancer of prostate Substance use disorder Mother Breast cancer, Onset Age: 47 Sister Cervical cancer Maternal Grandmother Ovarian cancer Social History Household Members Other:: , 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, 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, 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 Housing: Apartment Are you a primary care nurse rn to a significant other at home: No Do you presently have visiting nurse or other home services: No Alcohol intake: current Alcohol intake frequency: a few times a month Comment: abdomne Patient Tobacco Use Status: Former Tobacco user (08/30/24) Tobacco use type: Cigarette Cigarette Packs Per Day: 0.25 Cigarettes Per Day: 6 Years Smoked: 20+ e-Cigarette/Vaping Use: Never Used service: No Current occupational status: employed Sexual orientation: Straight/Heterosexual Gender identity: Female Cognitive needs: No Hearing needs: No Vision needs: No Female Reproductive History Menstrual Age of Menarche: 9 Questionnaire PHQ-9 Over the last 2 weeks, how often have you been bothered by any of the following problems? 1. Little interest or pleasure in doing things: not at all 2. Feeling down, depressed, or hopeless: not at all 3. Trouble falling or staying asleep, or sleeping too much: not at all 4. Feeling tired or having little energy: not at all 5. Poor appetite or overeating: not at all 6. Feeling bad about yourself - or that you are a failure or have let yourself or your family down: not at all 7. Trouble concentrating on things, such as reading the newspaper or watching television: not at all 8. Moving or speaking so slowly that other people could have noticed. Or the opposite - being so fidgety or restless that you have been moving around a lot more than usual: not at all 9. Thoughts that you would be better off or of hurting yourself in some way: not at all Total score: 0 Depression Screening Interpretation: Negative Depression Screening Done: Yes 93211 - PHQ-9 Billing: Yes Source: Developed by Drs. Michael Hagen, Yolie Camacho, Lee Gregorio and colleagues, with an educational greg from [employer]. Thrive Questionnaire Date Thrive assessed: 10/24/24 I am a: Patient What is your living situation today?: I have a steady place to live Within the past 12 months, did the food you bought not last and you didn't have the money to get more?: Never true Within the past 12 months, did you worry whether your food would run out before you got money to buy more?: Never true Do you have trouble paying for medicines?: No Do you have trouble getting transportation to medical appointments?: No Do you have trouble paying your heating and electricity bill?: I choose not to answer this question Do you have trouble taking care of your child, family member or friend?: No Do you have trouble with day-to-day activities such as bathing, preparing meals, shopping, managing finances, etc.?: No Are you currently unemployed and looking for a job?: No Are you interested in more education?: No Please select the resources that you would like help with: None Currently or been in a relationship where the following occur: I choose not to answer THRIVE Score: 0 AUDIT C Alcohol Use Questionnaire (AUDIT-C) 1. How often do you have a drink containing alcohol?: 2-4 times a month 2. How many drinks containing alcohol do you have on a typical day when you are drinking?: 1 or 2 3. How often do you have six or more drinks on one occasion?: Less than monthly Total Score: 3 WILLY-7 AMB Questionnaire WILLY-7 Date WILLY - 7 assessed: 10/24/24 Feeling nervous, anxious, or on edge: 1 = Several days Not being able to stop or control worryin = Not at all Worrying too much about different things: 0 = Not at all Trouble relaxin = Several days Being so restless that it is hard to sit still: 0 = Not at all Becoming easily annoyed or irritable: 0 = Not at all Feeling afraid as if something awful might happen: 0 = Not at all Total WILLY-7 score (0-4 normal; 5-9 mild; 10-14 moderate; 15-21 severe): 2 Source: Developed by Drs. Michael Hagen, Yolie Camacho, Lee Gregorio and colleagues, with an educational greg from [employer]. WILLY-7 Assessment Billing WILLY-7 Assessment Tool: WILLY-7 Assessment 33575 Review of Systems Const All systems reviewed & are unremarkable except as noted in HPI and below Reports no additional complaints Eyes Reports no additional complaints ENT Reports no additional complaints Card Reports no additional complaints Resp Reports no additional complaints GI Reports no additional complaints Reports no additional complaints Musc Reports no additional complaints Physical exam (Primary Care) Vital Signs: Last Vital Signs Temp 97.9 F 10/24/24 08:20 Pulse 67 10/24/24 08:20 BP 122/70 10/24/24 08:20 Pulse Ox 95 03/18/25 08:20 Oxygen Delivery Method Room Air 10/24/24 08:20 BMI result Body Mass Index 31.6 Tobacco/Smoking Status: Tobacco use Status Tobacco use date assessed 10/24/24 10/24/24 08:26 Patient Tobacco Use Status Former Tobacco user (08/30/24 10/24/24 08:26 ) Tobacco use type Cigarette 10/24/24 08:26 e-Cigarette/Vaping Use Never Used 10/24/24 08:26 PHQ-9: PHQ-9 Score PHQ-9: Total score 0 10/24/24 08:26 Depression Screening Interpretation: Negative Thrive Assessment: Date of Thrive Assessment Date Thrive assessed 10/24/24 10/24/24 08:26 Currently or been in a relationship where the following occur: I choose not to answer Const General: no acute distress HENMT Head: Yes normal to inspection Ears: hearing grossly normal bilaterally and TM's normal bilaterally General nose exam: No nasal discharge present Face and sinus: Yes normal facial exam Eyes General: appearance normal, both eyes and all related structures Neck Neck: Yes no lymphadenopathy and Yes supple Resp Effort & Inspection: normal respiratory effort Auscultation: clear to auscultation bilaterally Cardio Rhythm: regular rhythm Heart sounds: S1 normal heart sound present and S2 normal heart sound present GI Inspection: Yes normal to inspection Palpation (GI): Soft to palpation Percussion: Yes normal to percussion Auscultation: normal bowel sounds Coding Level of Care Code Est Pt Prev Care 40-64y(32915) Diagnoses Annual physical exam Z00.00 Low vitamin B12 level R79.89 Dysplasia of cervix, low grade (CAROL 1) N87.0 Tinnitus H93.19 Additional Codes WILLY-7 Assessment Billing - WILLY-7 Assessment Tool: WILLY-7 Assessment 49299 ([id number]) PHQ-9 - 32974 - PHQ-9 Billing: Yes ([id number]) Assessment & Plan Assessment & Plan (1) Annual physical exam: Code(s): Z00.00 - Encounter for general adult medical examination without abnormal findings Category: Medical Plan: Well-balanced diet regular physical activity weight loss discussed with the patient. (2) Low vitamin B12 level: Code(s): R79.89 - Other specified abnormal findings of blood chemistry Category: Medical Plan: Check vitamin B12 level. Patient has been taking supplement every other day (3) Dysplasia of cervix, low grade (CAROL 1): Comment: Established with deployment engineer Code(s): N87.0 - Mild cervical dysplasia Category: Medical Plan: Follow-up with deployment engineer (4) Tinnitus: Comment: Normal hearing test and MRI by ENT Dr. Schrader 09/2024 Code(s): H93.19 - Tinnitus, unspecified ear Category: Medical Plan: Patient was advised to monitor for any changes in her hearing. She will obtain the results of the MRI and hearing test Orders: Orders Vitamin B12 and Folate Today - Other specified abnormal findings of blood chemistry, Z00.00 - Encounter for general adult medical examination without abnormal findings Comprehensive [place]. Panel Fast 1 Year - Other specified abnormal findings of blood chemistry, Z00.00 - Encounter for general adult medical examination without abnormal findings Complete Blood Count Auto Diff 1 Year - Other specified abnormal findings of blood chemistry, Z00.00 - Encounter for general adult medical examination without abnormal findings Lipid Panel 1 Year - Other specified abnormal findings of blood chemistry, Z00.00 - Encounter for general adult medical examination without abnormal findings Vitamin B12 and Folate 1 Year - Other specified abnormal findings of blood chemistry, Z00.00 - Encounter for general adult medical examination without abnormal findings Complete Blood Count Auto Diff Today - Other specified abnormal findings of blood chemistry, Z00.00 - Encounter for general adult medical examination without abnormal findings TSH reflex Free T4 Today - Other specified abnormal findings of blood chemistry, Z00.00 - Encounter for general adult medical examination without abnormal findings Vitamin D 25-OH Total Today - Other specified abnormal findings of blood chemistry, Z00.00 - Encounter for general adult medical examination without abnormal findings TSH reflex Free T4 1 Year - Other specified abnormal findings of blood chemistry, Z00.00 - Encounter for general adult medical examination without abnormal findings Vitamin D 25-OH Total 1 Year - Other specified abnormal findings of blood chemistry, Z00.00 - Encounter for general adult medical examination without abnormal findings
--- OUTSIDE RECORDS SUMMARY | 2024-10-24 08:29 | XMS_ITS | Patient Health Record ---
Author Organization [facility] Address [address] [place] [address] Care Team Providers Care Planning Feeder Name Role Phone Mine Chen MD Primary Care Provider Agustin Martins Jr Unavailable [phone] Allergies Allergen (clinical drug ingredient) Drug/Non Drug Allergy documented on EMR Reaction Allergy Type Onset Date Status Mold Unknown Allergy Active Reason For Referral No Information Medications Medication SIG (Take, Route, Frequency, Duration) Notes Start Date End Date Status buPROPion HCl ER (XL) 150 MG 1 tablet in the morning Orally Once a day for 30 day(s) Active busPIRone HCl 5 MG 1 tablet Orally Twic e a day Active Immunizations Vaccine Route Administration Date Status Comme nts Influenza Unknown 07/07/2021 Refused Social History Tobacco Use: Social History Observation Description Date Details (start date - stop date) Current Smoker NA - NA Tobacco Use/Smoking Question Answer Notes Patient is [...] Never (0 point) Points 1 Interpretation Negative Problems Problem Type SNOMED Code ICD Code Onset Dates Problem Status W/U Status Risk Notes Problem [id number] Right upper quad rant pain (R10.11) Active confirmed Problem 516735859 Gastroesophageal reflux disease, unspecified whether esophagitis present (K21.9) Active confirmed Problem 836524181 History of cholecystectomy (Z90.49) Active confirmed Plan Of Treatment No Information Insurance Providers Payer Name Payer Address Payer Phone Subscriber Number Group Number Insured Name Patient Relationship to Insured Coverage Start Date Coverage End Date [address] [address] [id number] AYE BROWN Self - patient is the insured Medical (General) History Medical History History ICD Code Anxiety/depression Eczema Surgical History Surgery Date(Month/Year) ingrown toenail 1999 wisdom teeth 2002 gallbladder 2020 Cervical cerclage
== END 2024-10-24 08:49 | disposition home or self-care (01) ==
LOC: HO.HMCC 08:18
PROVIDERS: PCP Internal Medicine; Visit Provider Internal Medicine
DX: Z00.00 Encounter for general adult medical examination without abnormal findings (principal); R79.89 Other specified abnormal findings of blood chemistry; N87.0 Mild cervical dysplasia; H93.19 Tinnitus, unspecified ear

== ENCOUNTER 2025-03-20 13:03 | Outpatient (AMB) | payer BC, SELFPAY ==
--- NOTE | 2025-03-20 13:13 | A.OFFVIS_ITS ---
Vital Signs 03/20/25 13:19 Height 6 ft Weight 221 lb BMI 30.0 BP 116/72 Intake Visit Reasons: CIGARETTE CATCHER annual exam Elementary Instructional Coach: Elementary Instructional Coach Present (Estefani) Accompanied by: Self / Same As Patient Allergies No Known Allergies (No Known Allergies*) Allergy (Verified 03/20/25 13:18) Is last menstrual period known: No Post menopausal: No Patient : No HPI Comments Details: Patient is a premenopausal woman presenting for annual examination. Applications Engineer Manufacturing concerns: none. Current Mirena, no concerns. Currently is sexually active, new partner within the last year. She denies vaginal itching or irritation. STI screening offered; she accepts. She tries to eat healthy and stays active with exercise. Family history of breast cancer, ovarian cancer. Patient w/ MITF gene mutation. Last pap smear 2023, CAROL 1 with colposcopy biopsy. Mammogram: 2023. Book for 04/06/2025. [facility]LY [facility] Medical History (Updated 03/20/25 @ 13:56 by Marina Garces CNM) Encounter for removal and reinsertion of intrauterine contraceptive device (IUD) Family history of breast cancer Family history of ovarian cancer COVID-19 vaccine series completed Environmental allergies Cervical cancer screening Eczema Gallstones depression Depression with anxiety Surgical History Hx of cholecystectomy History of wisdom tooth extraction No pertinent past surgical history Family History Father Bladder cancer Cancer of prostate Substance use disorder Mother Breast cancer, Onset Age: 47 Sister Cervical cancer Maternal Grandmother Ovarian cancer Social History Household Members Other:: , 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, 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, 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 Housing: Apartment Are you a primary resident care aid to a significant other at home: No Do you presently have visiting nurse or other home services: No Alcohol intake: current Alcohol intake frequency: a few times a month Comment: abdomne Patient Tobacco Use Status: Former Tobacco user (08/30/24) Tobacco use type: Cigarette Cigarette Packs Per Day: 0.25 Cigarettes Per Day: 6 Years Smoked: 20+ e-Cigarette/Vaping Use: Never Used service: No Current occupational status: employed Sexual orientation: Straight/Heterosexual Gender identity: Female Cognitive needs: No Hearing needs: No Vision needs: No Female Reproductive History Menstrual Age of Menarche: 9 control method: progestin IUCD (Mirena ) Total pregnancies: 3 Full term: 2 Date of last pap smear: 12/04/20 (negative pap smear, negative hpv ) Date of Mammogram: 03/31/24 (bi rad 1) Review of Systems Const All systems reviewed & are unremarkable except as noted in HPI and below Reports as per HPI Eyes Reports no additional complaints ENT Reports no additional complaints Card Reports no additional complaints Resp Reports no additional complaints GI Reports as per HPI and Reports no additional complaints Reports as per HPI Musc Reports no additional complaints Skin/Breast Reports as per HPI Neuro Reports no additional complaints Psych Reports no additional complaints Endo Reports no additional complaints Callum/Lymph Reports no additional complaints Aller/Immun Reports no additional complaints Physical Exam Vital Signs: Last Vital Signs BP 116/72 03/20/25 13:19 BMI result Body Mass Index 30.0 Const General: cooperative, healthy appearing, no acute distress, well developed and alert Orientation/consciousness: patient oriented x3 HEENT Head: Yes normal to inspection Eyes General: appearance normal, both eyes and all related structures Neck Neck: Yes normal visual inspection Thyroid: Thyroid normal Chest Chest palpation & inspection: normal inspection of the chest and other (no puckering, dimpling, peau de orange, retraction, discharge, masses) Breast/axilla inspection: normal inspection of the breasts Breast/axilla palpation: normal palpation of the breasts Resp Effort & Inspection: normal respiratory effort GI Inspection: Yes normal to inspection Palpation (GI): Soft to palpation Rectal Exam - Female: deferred General: Yes bladder normal to palpation External Female Exam: normal external appearance and normal appearance of the urethra Speculum Exam - Vagina: normal appearance of the vagina, normal palpation and normal vaginal discharge Speculum Exam - Cervix: normal appearance of the cervix, normal palpation and Other cervical findings present (IUD strings at the os. Bled slightly with Pap) Bimanual exam- vagina & uterus: normal bimanual exam, normal palpation, uterine size normal, bladder normal to palpation, normal palpation and non-tender Bimanual Exam- Adnexa, other: no masses Skin General skin exam: no rashes or lesions noted Rashes: no rashes Neuro General: patient oriented x3 Cognition (Neuro): normal cognition Extrem General: Yes normal to inspection Psych Attitude: cooperative Thought process: Normal thought process present Assessment & Plan Assessment & Plan (1) Dysplasia of cervix, low grade (CAROL 1): Comment: Established with skirt panel assembler Code(s): N87.0 - Mild cervical dysplasia Category: Medical Plan: Repeat Pap obtained. (2) ASCUS with positive high risk HPV cervical: Code(s): R87.610 - Atypical squamous cells of undetermined significance on cytologic smear of cervix (ASC-US); R87.810 - Cervical high risk human papillomavirus (HPV) DNA test positive Category: Medical (3) Encounter for well woman exam with routine gynecological exam: Code(s): Z01.419 - Encounter for gynecological examination (general) (routine) without abnormal findings Category: Medical Plan Discussed: Current recommendations for pap smears per ASCCP guidelines. Follow up Pap- CAROL 1 on biopsy, await results for final plan of care. Breast awareness and periodic breast exams. Mammogram yearly. Maintain a healthy lifestyle including a well balanced diet and routine exercise. Use condoms for STI prevention. GC chlamydia and BV panel obtained. Discussed gene testing report, family history and mammogram-category C dense breasts. Patient is concerned high [id number] expense for MRI we will look at all her options for breast surveillance and reach out to the office if she wants to do breast MRIs for referral to breast surgeon. Patient verbalizes understanding and agrees to the plan of care. She was given opportunity to ask questions and all questions were answered to the best of my ability. RTO in one year for annual skirt panel assembler examination. This note is constructed using voice recognition software. While every effort has been made to ensure accuracy, heat treat supervisor errors may have been included. Coding Level of Care Code Est Pt Prev Care 40-64y(78109) Diagnoses Dysplasia of cervix, low grade (CAROL 1) N87.0 ASCUS with positive high risk HPV cervical R87.610; R87.810 Encounter for well woman exam with routine gynecological exam Z01.419
[2025-03-20 13:19] VITALS: BP 116/72
--- OUTSIDE RECORDS SUMMARY | 2025-03-20 13:53 | XMS_ITS | Patient Health Record ---
Author Organization [facility] Address [address] [place] [address] Care Team Providers Care Escort Vehicle Driver Name Role Phone Mine Chen MD Primary Care Provider Agustin Martins Jr Unavailable [phone] Allergies Allergen (clinical drug ingredient) Drug/Non Drug [...] Problem Status W/U Status Risk Notes Problem [id number] Right upper quad rant pain (R10.11) Active confirmed Problem 527996026 Gastroesophageal reflux disease, unspecified whether esophagitis present (K21.9) Active confirmed Problem 645659660 History of cholecystectomy (Z90.49) Active confirmed Plan Of Treatment No Information Insurance Providers Payer Name Payer Address Payer Phone Subscriber Number Group Number Insured Name Patient Relationship to Insured Coverage Start Date Coverage End Date [address] [address] [id number] AYE BROWN Self - patient is the insured Medical (General) History Medical History History ICD Code Anxiety/depression Eczema Surgical History Surgery Date(Month/Year) ingrown toenail 1999 wisdom teeth 2002 gallbladder 2020 Cervical cerclage
== END 2025-03-20 13:57 | disposition home or self-care (01) ==
LOC: HO.HWS 13:04
PROVIDERS: PCP Internal Medicine; Visit Provider Advanced Practice Midwife
DX: Z01.419 Encounter for gynecological examination (general) (routine) without abnormal findings (principal); R87.610 Atypical squamous cells of undetermined significance on cytologic smear of cervix (ASC-US); R87.810 Cervical high risk human papillomavirus (HPV) DNA test positive
CPT/HCPCS: 99396; 99459

== ENCOUNTER 2025-03-20 13:03 | Outpatient (REF) | payer BC, SELFPAY ==
[2025-03-20 17:48] LABS: Bacterial Vaginosis PCR NEGATIVE (Negative); Candida Group PCR NOT DETECTED (Not Detect); Candida glab krusei PCR NOT DETECTED (Not Detect); Trichomonas vaginalis PCR NOT DETECTED (Not Detect)
[2025-03-20 18:20] LABS: CT PCR NOT DETECTED (Not Detect.); NG PCR NOT DETECTED (Not Detect.)
== END 2025-03-20 13:04 | disposition home or self-care (01) ==
LOC: HO.LNP 13:03
PROVIDERS: PCP Internal Medicine; Visit Provider Advanced Practice Midwife
DX: Z01.419 Encounter for gynecological examination (general) (routine) without abnormal findings (principal); N87.0 Mild cervical dysplasia; R87.810 Cervical high risk human papillomavirus (HPV) DNA test positive; Z11.3 Encounter for screening for infections with a predominantly sexual mode of transmission; Z11.8 Encounter for screening for other infectious and parasitic diseases
CPT/HCPCS: 81515; 87491; 87591; 87626; 88175

== ENCOUNTER 2025-04-06 08:00 | Outpatient (REF) | payer BC, SELFPAY ==
--- NOTE | ~2025-04-06 | MM_ITS ---
EXAMINATION: MM SCREENING DIGITAL BREAST TOMOSYNTHESIS, BILATERAL CLINICAL INFORMATION: Screening. Asymptomatic. COMPARISON: Mammography: Comparison is made with available priors TECHNIQUE: Digital breast mammography with tomosynthesis is performed in both the craniocaudal and mediolateral oblique views along with computer-aided detection (CAD). FINDINGS: The breasts are heterogeneously dense, which may obscure small masses (ACR BI-RADS breast composition Category c). Left: Focal asymmetry upper inner breast far posterior depth slightly increased in comparison to mammography dating back to 2020. Right: There are no significant masses, abnormal calcifications, or other abnormalities. MM/MM tomosynthesis screening BI IMPRESSION: Additional imaging is recommended ASSESSMENT: BI-RADS BI-RADS 0 - Incomplete: Needs additional Imaging. RECOMMENDATION: 1. Additional views of the left breast. 2. Targeted ultrasound if warranted after review of the additional views. 3. Radiology department staff will contact the patient for additional imaging. Additional Imaging required This examination should not preclude the clinical evaluation of a suspicious palpable abnormality. This patient's information was entered into a reminder system with a target due date for their next mammogram. Electronically signed by: Kiesha Moseley DO 04/10/2025 10:11 AM EDT
--- OUTSIDE RECORDS SUMMARY | 2025-04-06 08:03 | XMS_ITS | Patient Health Record ---
Author Organization [facility] Address [address] [place] [address] Care Team Providers Care Life Scientist Name Role Phone Mine Chen MD Primary Care Provider Agustin Martins Jr Unavailable Allergies Allergen (clinical drug ingredient) Drug/Non Drug [...] Problem Status W/U Status Risk Notes Problem 475553888 Right upper quad rant pain (R10.11) Active confirmed Problem 166145665 Gastroesophageal reflux disease, unspecified whether esophagitis present (K21.9) Active confirmed Problem 555107568 History of cholecystectomy (Z90.49) Active confirmed Plan Of Treatment No Information Insurance Providers Payer Name Payer Address Payer Phone Subscriber Number Group Number Insured Name Patient Relationship to Insured Coverage Start Date Coverage End Date [address] [address] [id number] AYE BROWN Self - patient is the insured Medical (General) History Medical History History ICD Code Anxiety/depression Eczema Surgical History Surgery Date(Month/Year) ingrown toenail 1999 wisdom teeth 2002 gallbladder 2020 Cervical cerclage
== END 2025-04-06 08:01 | disposition home or self-care (01) ==
LOC: HO.MAMMO 08:00
PROVIDERS: PCP Internal Medicine; Visit Provider Internal Medicine
DX: Z12.31 Encounter for screening mammogram for malignant neoplasm of breast (principal)
CPT/HCPCS: 77063; 77067

== ENCOUNTER → 2025-04-06 08:15 | Outpatient (BNV) | payer BC, SELFPAY | PROVIDERS: PCP Internal Medicine; Visit Provider Internal Medicine | DX: Z12.31 Encounter for screening mammogram for malignant neoplasm of breast (principal) | CPT/HCPCS: 77063; 77067 ==

== ENCOUNTER 2025-04-13 07:24 | Outpatient (AMB) | payer BC, SELFPAY ==
--- OUTSIDE RECORDS SUMMARY | 2025-04-13 07:27 | XMS_ITS | Patient Health Record ---
Author Organization [facility] Address [address] [place] [address] Care Team Providers Care Dispersion Mixer Name Role Phone Mine Chen MD Primary [...] Problem Status W/U Status Risk Notes Problem [id number] Right upper quad rant pain (R10.11) Active confirmed Problem 314976648 Gastroesophageal reflux disease, unspecified whether esophagitis present (K21.9) Active confirmed Problem 928057494 History of cholecystectomy (Z90.49) Active confirmed Plan Of Treatment No Information Insurance Providers Payer Name Payer Address Payer Phone Subscriber Number Group Number Insured Name Patient Relationship to Insured Coverage Start Date Coverage End Date [address] [address] [id number] AYE BROWN Self - patient is the insured Medical (General) History Medical History History ICD Code Anxiety/depression Eczema Surgical History Surgery Date(Month/Year) ingrown toenail 1999 wisdom teeth 2002 gallbladder 2020 Cervical cerclage
[2025-04-13 07:29] VITALS: BP 98/62; PULSE 73; RESP 16; TEMP 36.8; O2SAT 96; BMI 31.1
--- NOTE | 2025-04-13 07:29 | AM.OFFWIN_ITS ---
Intake Vital Signs 04/13/25 07:29 Height 6 ft Weight 229 lb BMI 31.1 BP 98/62 Blood Pressure Location Rt brachial Position Sitting Respiration 16 Pulse 73 Pulse Source Pulse Oximeter Temp 98.2 F Temp Source Oral Pulse Oximetry (%) 96 Oxygen Delivery Method Room Air Intake Visit Reasons: EP-upper lip bite Intake Note: Pt is here today c/o upper lip bite 3 days ago by friend alvaro: now has a sore Patient Tobacco Use Status: Former Tobacco user (08/30/24) Allergies No Known Allergies (No Known Allergies*) Allergy (Verified 04/13/25 07:39) HPI HPI Comments History of Present Illness Details History of Present Illness - The patient is a 39-year-old female pr esenting with an infected lip wound following a possible dog bite or scratch. - The incident occurred 3 days ago when the patient was bitten or scratched by her best friends 8-month-old puppy. - Initially, the wound appeared as a kai an cut but has since become more red and swollen, suggesting infection. - The patient has been applying Aquaphor to prevent dryness and cracking. - There is no fever reported, but the ar ea feels swollen and uncomfortable. - The puppy has not received its initial vaccinations, raising concerns about rabies exposure. Physical Exam General: Cooperative, healthy appearing, comfortable, no acute distress and well developed Orientation: Patient oriented x3 Limitations: No limitations Head: Normal to inspection Ears: Hearing grossly normal bilaterally Nose: Normal External nose present Face and sinus: erythema and edema with yellow tinge noted on the upper right side lip Eyes: Appearance normal, both eyes and all related structures Neck: Normal visual inspection and Yes full ROM Respiratory: Normal respiratory effort and able to speak in complete sentences. Skin: No rashes or lesions noted, except as above Neuro: Patient oriented x3 Extremities: Normal to inspection [facility] Medical History (Updated 04/13/25 @ 08:05 by Ana Laura Rice PA-C) Encounter for removal and reinsertion of intrauterine contraceptive device (IUD) Family history of breast cancer Family history of ovarian cancer COVID-19 vaccine series completed Environmental allergies Cervical cancer screening Eczema Gallstones depression Depression with anxiety Surgical History Hx of cholecystectomy History of wisdom tooth extraction No pertinent past surgical history Family History Father Bladder cancer Cancer of prostate Substance use disorder Mother Breast cancer, Onset Age: 47 Sister Cervical cancer Maternal Grandmother Ovarian cancer Social History Household Members Other:: , 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, 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, 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 Housing: Apartment Are you a primary field care manager to a significant other at home: No Do you presently have visiting nurse or other home services: No Alcohol intake: current Alcohol intake frequency: a few times a month Comment: abdomne Patient Tobacco Use Status: Former Tobacco user (08/30/24) Tobacco use type: Cigarette Cigarette Packs Per Day: 0.25 Cigarettes Per Day: 6 Years Smoked: 20+ e-Cigarette/Vaping Use: Never Used service: No Current occupational status: employed Sexual orientation: Straight/Heterosexual Gender identity: Female Cognitive needs: No Hearing needs: No Vision needs: No Female Reproductive History Menstrual Age of Menarche: 9 Review of Systems Const All systems reviewed & are unremarkable except as noted in HPI and below Physical Exam Vital Signs: Last Vital Signs Temp 98.2 F 04/13/25 07:29 Pulse 73 04/13/25 07:29 Resp 16 04/13/25 07:29 BP 98/62 04/13/25 07:29 Pulse Ox 96 04/13/25 07:29 Oxygen Delivery Method Room Air 04/13/25 07:29 BMI result Body Mass Index 31.1 Assessment & Plan Assessment & Plan (1) Dog bite of skin of lip: Code(s): S01.551A - Open bite of lip, initial encounter; W54.0XXA - Bitten by dog, initial encounter Qualifiers: Encounter type: initial encounter Qualified Code(s): S01.551A - Open b ite of lip, initial encounter; W54.0XXA - Bitten by dog, initial encounter Plan: Patient was informed and verbally consented to the use of an ambient scribe for clinic note documentation during this visit. - Prescribe Augmentin for one week - can add 3 days if not cleared in one week, pt will message me on portal. - Advise taking the antibiotic with food to minimize gastrointestinal discomfort. - Recommend a rabies vaccination series, this can be done through the Emergency Department. - Tdap is up to date, last one in 2023. Medications: New amoxicillin-pot clavulanate 875-125 mg 1 tab PO Q12H 14 tabs 0RF Coding Level of Care Code Est Pt Level 3 (27127) Diagnoses Dog bite of skin of lip, initial encounter S01.551A; W54.0XXA Encounter type: initial encounter
== END 2025-04-13 08:35 | disposition home or self-care (01) ==
PROVIDERS: PCP Internal Medicine; Visit Provider Physician Assistant
DX: S01.551A Open bite of lip, initial encounter (principal); W54.0XXA Bitten by dog, initial encounter

== ENCOUNTER 2025-04-17 07:24 | Outpatient (REF) | payer BC, SELFPAY ==
--- NOTE | ~2025-04-17 | US_ITS ---
EXAMINATION(S): 1. MM DIAGNOSTIC DIGITAL BREAST TOMOSYNTHESIS, LEFT 2. Targeted ultrasound of the left breast CLINICAL INFORMATION: Callback from screening for left breast focal asymmetry in the upper inner quadrant far posterior depth, slightly increased in comparison to 2020. COMPARISON: Comparison made to multiple prior, most recent April 06, 2025, and most remote January 10, 2021. TECHNIQUE: Digital breast tomosynthesis is performed with spot compression tomosynthesis images. FINDINGS: BREAST COMPOSITION: There are scattered areas of fibroglandular density (ACR BI-RADS breast composition Category b). LEFT BREAST: Previously described focal asymmetry in the upper inner quadrant posterior depth is pliable with spot compression. No suspicious mammographic findings. Targeted ultrasound of the left breast was performed at the location of the mammographic finding. The survey throughout the upper inner quadrant did not reveal suspicious sonographic findings. US/US breast LT limited mamm only IMPRESSION: LEFT BREAST: Negative, no evidence of malignancy. Normal interval follow-up is recommended in 12 months. ASSESSMENT: BI-RADS 1 - Negative RECOMMENDATION: 1 year F/U Results were provided to the patient at time of visit by the technologist. This patient's information was entered into a reminder system with a target due date for their next mammogram. Electronically signed by: Irma Berrios MD 04/17/2025 08:07 AM EDT
--- OUTSIDE RECORDS SUMMARY | 2025-04-17 07:26 | XMS_ITS | Patient Health Record ---
Author Organization [facility] Address [address] [place] [address] Care Team Providers Care Field Sales Specialist Name Role Phone Mine Chen MD Primary Care Provider Agustin Martins Jr Unavailable [phone] Allergies Allergen (clinical drug ingredient) Drug/Non Drug [...] Problem Status W/U Status Risk Notes Problem 226355670 Right upper quad rant pain (R10.11) Active confirmed Problem 254914713 Gastroesophageal reflux disease, unspecified whether esophagitis present (K21.9) Active confirmed Problem 815396688 History of cholecystectomy (Z90.49) Active confirmed Plan Of Treatment No Information Insurance Providers Payer Name Payer Address Payer Phone Subscriber Number Group Number Insured Name Patient Relationship to Insured Coverage Start Date Coverage End Date [address] [address] [id number] AYE BROWN Self - patient is the insured Medical (General) History Medical History History ICD Code Anxiety/depression Eczema Surgical History Surgery Date(Month/Year) ingrown toenail 1999 wisdom teeth 2002 gallbladder 2020 Cervical cerclage
== END 2025-04-17 07:25 | disposition home or self-care (01) ==
LOC: HO.MAMMO 07:24
PROVIDERS: Visit Provider Internal Medicine
DX: N64.89 Other specified disorders of breast (principal)
CPT/HCPCS: 76642; 77061; 77065

== ENCOUNTER → 2025-04-17 07:30 | Outpatient (BNV) | payer BC, SELFPAY | PROVIDERS: Visit Provider Radiology Body Imaging | DX: R92.8 Other abnormal and inconclusive findings on diagnostic imaging of breast (principal) | CPT/HCPCS: 76642; 77061; 77065 ==

== ENCOUNTER 2025-05-11 07:23 | Outpatient (AMB) | payer BC, SELFPAY ==
--- NOTE | 2025-05-11 07:26 | AM.OFFWIN_ITS ---
Intake Vital Signs 05/11/25 07:28 Height 6 ft Weight 232 lb BMI 31.5 BP 110/70 Blood Pressure Location Rt brachial Position Sitting Respiration 16 Pulse 95 Pulse Source Pulse Oximeter Temp 98.5 F Temp Source Oral Pulse Oximetry (%) 98 Oxygen Delivery Method Room Air Intake Visit Reasons: ep fever for 4 days Intake Note: Pt is here today c/o fever and chills x4days Patient Tobacco Use Status: Former Tobacco user Allergies No Known Allergies (No Known Allergies*) Allergy (Verified 05/11/25 07:26) HPI HPI Comments History of Present Illness Details This is a 40-year-old female with a past medical history of gastroesophageal reflux disease, anxiety and depression presenting for evaluation of intermittent fevers that she has had since Wednesday evening. Patient states during the day on Wednesday she had body aches and a headache and developed a fever that evening. Her most recent fever was 101.9? this morning for which she took ibuprofen at 6:45 a.m.. Patient denies having any ear pain, sore throat, dental pain, cough, shortness of breath, hemoptysis, nausea, vomiting, dysuria, urinary frequency or recent sick contacts. Additionally, patient denies having any recent immunizations. She has been taking ibuprofen only for relief of her fevers. [facility] Medical History (Updated 05/11/25 @ 07:48 by Coty Mathews PA-C) Encounter for removal and reinsertion of intrauterine contraceptive device (IUD) Family history of breast cancer Family history of ovarian cancer COVID-19 vaccine series completed Environmental allergies Cervical cancer screening Eczema Gallstones depression Depression with anxiety Surgical History Hx of cholecystectomy History of wisdom tooth extraction No pertinent past surgical history Family History Father Bladder cancer Cancer of prostate Substance use disorder Mother Breast cancer, Onset Age: 47 Sister Cervical cancer Maternal Grandmother Ovarian cancer Social History Household Members Other:: , 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, 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, 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 Housing: Apartment Are you a primary long term care administrator to a significant other at home: No Do you presently have visiting nurse or other home services: No Alcohol intake: current Alcohol intake frequency: a few times a month Comment: abdomne Patient Tobacco Use Status: Former Tobacco user Tobacco use type: Cigarette Cigarette Packs Per Day: 0.25 Cigarettes Per Day: 6 Years Smoked: 20+ e-Cigarette/Vaping Use: Never Used service: No Current occupational status: employed Sexual orientation: Straight/Heterosexual Gender identity: Female Cognitive needs: No Hearing needs: No Vision needs: No Female Reproductive History Menstrual Age of Menarche: 9 Review of Systems Const All systems reviewed & are unremarkable except as noted in HPI and below Reports body aches, Reports chills, Reports fatigue, Reports fever(s) and Reports headache(s) Eyes Reports no additional complaints ENT Reports as per HPI, Denies dental pain, Denies otalgia, Reports headache(s), Denies mouth pain, Denies sinus pressure and Denies sore throat Card Reports no additional complaints and Denies dyspnea Resp Reports no additional complaints, Denies cough, Denies hemoptysis and Denies dyspnea GI Denies diarrhea, Denies nausea and Denies vomiting Reports as per HPI and Denies dysuria Musc Reports no additional complaints Skin/Breast Reports system reviewed and no additional complaints, except as documented Neuro Reports no additional complaints, Denies confusion and Reports headache(s) Psych Reports no additional complaints and Denies confusion Endo Reports no additional complaints and Reports fatigue Callum/Lymph Reports no additional complaints Aller/Immun Reports no additional complaints Physical Exam Patient is currently afebrile. Const General: cooperative, no acute distress, well developed, alert and awake; No acute distress, confusion or lethargic Nutritional Appearance: average body habitus Orientation/consciousness: patient oriented x3, No confusion and No lethargic Limitations: no limitations and No altered mental status HEENT Head: Yes normal to inspection and Yes normocephalic Ears: hearing grossly normal bilaterally, external ears normal, TM's normal bilaterally and EAC's normal General nose exam: Normal external nose present Face and sinus: Yes normal facial exam and Yes sinuses nontender Mouth: Normal oral and palatal mucosa present, oropharynx normal and moist mucous membranes Teeth and gingiva: dentition normal Throat: Yes posterior oropharynx normal, Yes uvula midline and No postnasal drainage Eyes General: appearance normal, both eyes and all related structures Neck Lymphatic: no lymphadenopathy noted Resp Effort & Inspection: normal respiratory effort, able to speak in complete sentences, no audible wheezes, no cough, not labored and not tachypneic Auscultation: clear to auscultation bilaterally Cardio Rate: regular rate Rhythm: regular rhythm GI Inspection: Yes normal to inspection Palpation (GI): Soft to palpation, not firm, nontender and no guarding Auscultation: normal bowel sounds General: Yes Bimanual renal exam normal bilaterally, Yes bladder normal to palpation and Yes no CVA tenderness Bimanual exam- vagina & uterus: bladder normal to palpation Back/Spine/Pelvis Back: no CVA tenderness Skin General skin exam: no rashes or lesions noted Neuro General: patient oriented x3 and No confusion Psych Appearance: grossly normal Mental Status: mental status grossly normal Insight: Good insight present (Psych) Judgement: Good judgement present (Psych) Assessment & Plan Assessment & Plan (1) Febrile illness: Comment: Patient is afebrile upon presentation with no acute findings on physical examination. Respiratory viral panel will be obtained. There is no evidence on review of systems or examination that urinalysis or imaging is warranted at this time. Code(s): R50.9 - Fever, unspecified Plan: Ibuprofen and/or Tylenol as needed for fevers, increase clear fluids daily, respiratory panel pending at this time. Orders: Orders Resp Pathogen Panel - [facility] [place] Today J06.9 - Acute upper respiratory infection, unspecified Coding Level of Care Code Est Pt Level 3 (56533) Diagnoses Febrile illness R50.9 Time Spent (min) 20
--- OUTSIDE RECORDS SUMMARY | 2025-05-11 07:26 | XMS_ITS | Data Portability ---
Author Organization [place] [facility] Address [address] [address] Care Team Providers Care Barrow Worker Name Role Phone BECKY OJEDA Primary Care Provider Assessment No assessment recorded. Plan of Treatment Reminders Order Date Submit Date Provider Last Modified By Organization Details Last Modified Time Details Appointments None recorded. Lab None recorded. Referral None recorded. Procedures allergy testing, skin prick (PROC) 2024 025 [email or web address] Not available 15:41:25 intradermal allergy skin testing (PROC) 2024 025 [facility] Not available 15:41:25 pulmonary function test procedure (PROC) 2024 025 [facility] Not available 15:41:26 pulse oximetry (PROC) 2024 025 [email or web address] Not available 15:41:26 Surgeries None recorded. Imaging MRI, brain + internal auditory canal, w/wo contrast - MRI, BRAIN + INTERNAL AUDITORY CANAL, W/WO CONTRAST [address] [facility] ([facility]), [address] [facility], [place], [address], 5 14:32:29 Medication Orders None recorded. Patient TargetsNo targets recorded. Patient Instructions Encounter Date Encounter Id Patient Instructions Last Modified By Organization Details Last Modified Time 12/05/2024 [id number] Patient with several months of chronic nasal congestion and persistent right sided tinnitus since an episode of crackling and popping with pain in the right ear. Outside audiogram unavailable. She has had worsening or persistent symptoms. CT of sinuses showed trace left sphenoid sinus thickening. Examination was otherwise unremarkable suggest allergy workup, MRI scan given the unilateral tinnitus and consistent use of fluticasone nasal spray and loratadine [email or web address] Not available 12/05/2024 14:38:17 Reason for Referral None Reported. Results Created Date Observation Date Name Description Value Unit Range Abnormal Flag Note LastModifiedBy Organization Detail LastModifiedTime 12/07/19 audio gram No observ ation record ed. BARCODE Not Available 2024 10:24:46 12/08/19 25 10/05/2024 CT, sinus es, w/o contr ast No observ ation record ed. [email or web address] Not Available 08/2024 10:16:35 12/20/1912/16/2024 MRI, brain + brain stem, w/wo contr ast [facility] Access ion Number : [id number] Tiffany valdivia Name: Nabeel costa, ArrayComma l Record Number : [id number] Date of : 1984 Date of Exam: 2024 Referr ing Physic nyla: Maria G son , [facility] [address] [place] [address] Exam: MR Brain (C-/C+ ) CPT 12501 Room Descri ption: [place] Siem Espr 1.5 HISTOR Y: Asymme trical sensor ineura l hearin g loss. Right- sided tinnit us. TECHNI QUE: Multip lanar multis equenc e MRI of the brain (IAC) was obtain ed before and after the admini strati on of 20 cc of Dotare m. COMPAR RADHA: No prior studie s are availa ble for compar radha at [facility] . FINDIN GS: The brains tem and cerebe llum are normal in signal . The cerebe llar tonsil s extend up to 4 mm below the level of the forame n magnum . A loop of the right anteri or inferi or cerebe llar artery extend s into the right sports apparel internship al audito ry canal. There is no mass or abnorm al enhanc ement within either cerebe llopon patrick angle cister n or sports apparel internship al audito ry canal. Expect ed T2 bright cochle ar signal is mainta ined, and there is no abnorm al labyri nthine enhanc ement. The ventri cles are normal in size. There is no extra- axial fluid collec tion. Incide ntal 8 mm pineal cyst. The visual ized extrac ranial soft tissue s and orbita l struct ures are unrema rkable . Small Tornwa ldt cyst. IMPRES MERRILL: 1. No retroc ochlea r lesion . 2. A loop of the right anteri or inferi or cerebe llar artery extend s into the right sports apparel internship al audito ry canal. 3. Mild cerebe llar ectopi a. 4. Incide ntal 8 mm pineal cyst. Electr onical ly Signed By: Ottoniel Bolivar MD [facility] ([facility]) [address] [place], [address], 12/20/2024 20:21:01 Result Notes Documentation Provider Name and Address Organization Details Recorded Time Mri, Brain + Brain Stem, W/wo Contrast : [facility] Accession Number: [id number] Patient Name: Suhas Garcia Date of : 1985 Date of Exam: 12-16-2024 Referring Physician: [facility] [address] [place] [address] Exam: MR Brain (C-/C+) CPT 12179 Room Description: [facility] Espr 1.5 HISTORY: Asymmetrical sensorineural hearing loss. Right-sided tinnitus. TECHNIQUE: Multiplanar multisequence MRI of the brain (IAC) was obtained before and after the administration of 20 cc of Dotarem. COMPARISON: No prior studies are available for comparison at [facility]. FINDINGS: The brainstem and cerebellum are normal in signal. The cerebellar tonsils extend up to 4 mm below the level of the foramen magnum. A loop of the right anterior inferior cerebellar artery extends into the right internal auditory canal. There is no mass or abnormal enhancement within either cerebellopontine angle cistern or internal auditory canal. Expected T2 bright cochlear signal is maintained, and there is no abnormal labyrinthine enhancement. The ventricles are normal in size. There is no extra-axial fluid collection. Incidental 8 mm pineal cyst. The visualized extracranial soft tissues and orbital structures are unremarkable. Small Tornwaldt cyst. IMPRESSION: 1. No retrocochlear lesion. 2. A loop of the right anterior inferior cerebellar artery extends into the right internal auditory canal. 3. Mild cerebellar ectopia. 4. Incidental 8 mm pineal cyst. Electronically Signed By: Ottoniel FOUNTAIN MD [address] [facility],[address], [address], [facility] 12/20/2024 16:34:12 Problems Name Problem SNOMED Code Status Onset Date Resolution Date Notes Provider Name and Address Organization Details Recorded Time Tinnitus of right ear 1328973777441 Active 2024 BLAIR RYDER MD [facility], [place], [address], [place] [facility] 14:01:42 Nasal congestion 60656243 Active 2024 BLAIR RYDER MD 100 [facility], [address], [place], [address], [place] - [facility] 14:01:48 Allergic rhinitis 72901246 Active 2024 BLAIR RYDER MD 100 [facility],[address] [place] [address], [place], [address], [place] - [facility] 14:01:56 Deviated nasal septum 559804225 Active 2024 BLAIR RYDER MD 100 [facility],[address] [place], [place], [address], [facility] - [facility] 14:02:04 Problem Notes None recorded. Procedures Surgical History Date Name Laterality Status Provider Name and Address Organization Details Recorded Time 12/05/2024 Comp Audio with Tymps - 80083 & 95846 completed ARSH STEVENS [address] [facility],[place] [address], [place], [address], [facility] - [facility] 12/05/2024 14:11:06 Imaging Results None recorded. Procedure Notes None recorded. Medical Equipment None Reported. Medications Name Sig Start Date Stop Date Status Note LastModified by Organization Details LastModified Time amoxicillin 500 mg capsule TAKE 1 CAPSULE BY MOUTH TWICE A DAY FOR 7 DAYS active Not Available Not Available No t Available prednisone 10 mg tablet TAKE 5 TABLETS BY MOUTH DAILY FOR 5 DAYS active Not Available Not Available No t Available azithromycin 250 mg tablet TAKE 2 TABLETS BY MOUTH TODAY, THEN TAKE 1 TABLET DAILY FOR 4 DAYS DIRECTED active Not Available Not Available No t Available triamcinolone acetonide 0.1 % topical cream APPLY TO AFFECTED AREA EVERY DAY active Not Available Not Available No t Available methylpredniso lone 4 mg tablets in a dose pack TAKE 6 TABLETS ON DAY 1 DIRECTED ON PACKAGE AND DECREASE BY 1 TAB EACH DAY FOR A TOTAL OF 6 DAYS active Not Available Not Available No t Available sertraline 50 mg tablet 50 mg every day by oral route. active Not Available Not Available No t Available amoxicillin 875 mg-potassium clavulanate 125 mg tablet TAKE 1 TABLET BY MOUTH TWICE A DAY FOR 7 DAYS active Not Available Not Available No t Available Vitals Date Recorded Systolic And Diastolic Provider Name and Address Organization Details Last Updated DateTime 12/05/2024 118/73 mm[Hg] BLAIR FOUNTAIN MD [address] [place] [address], [address], [place] [facility] 12/05/2024 14:40:49 Date Recorded Body height Body mass index (BMI) Body weight Provider Name and Address Organization Details Last Updated DateTime 12/05/2024 182.88 cm 31.2 kg/m2 051974.25 g Maryann Cobb [facility] 12/05/2024 13:49:42 Social History None recorded. Functional Status None recorded. Mental Status None recorded. Family History Nothing Reported. Medical History Condition Response Allergies/Hayfever N Heart Problems N Anxiety Y Tonsil Infections Y Emphysema N Migraines N Thyroid Problems N COPD N Depression Y Developmental Delay N Glaucoma N Nasal or Sinus Problems Y Anemia N Immune System Disorder N Anesthesia Complications N Heart Attack (ID) N Other Skin Condition Y Diabetes N Rhinitis N Bleeding Disorder N Food Allergy N Hearing Loss N Arthritis N Hyperlipidemia N Cancer N Stroke N Dementia N Nasal polyps N Asthma N Sleep Disorder N High Cholesterol N GERD/Reflux N Liver Disease N Headaches Y Fibromyalgia N Hypertension N Speech Delay N Kidney Disease N Gynecological HistoryNo gynecological history recorded. Obstetrics History GPAL:G 0 P 0 0 0 0 Past Encounters Encounter ID Performer Location Encounter Start Date Encounter Closed Date Diagnosis/Indication Diagnosis SNOMED-CT Code Diagnosis ICD10 Code Diagnosis IMO Codes Diagnosis Note [id number] BLAIR CASTILLO MD [facility] [address] [address] 12/05/2024 13:36:01 12/05/2024 14:41:59 Tinnitus of right ear 0400223625 108 H93.11 Audiologic al evaluation results: Right ear: Normal auditory thresholds with excellent speech discrimina tion. Left ear: Normal auditory thresholds with excellent speech discrimina tion. Tympanomet ry: Right Ear:Type A Left Ear:Type A Nasal congestion 1743814 0 R09.81 Deviated nasal septum 12 8307589 J34.2 Health Concerns Section Related Observation LastModified by Organization Detai ls LastModified Time None Recorded Concern Status LastModified by Organization Details LastModified Time None Recorded Advance Directives Directive None Recorded Payers Insurance Date Sequence Insurance Name Policy Number Policy Ofx Covered Member ID Fox Member ID Guarantor Name 12/21/2024 PAYMENT PLAN [facility] [facility] 02/26/2025 1 PREM (PPO) [id number] [facility] [id number] [facility] Notes Date Note Type Note Provider Name and Address Organization Details Recorded Time 12/05/2024 text/html ROS as noted in the HPI Ringing in right ear since URI/cracking sensation in July. Was concerned about perforation but PCP said ear drum was fine, just irritated. Treated with abx. August had persistent sinus and ear congestion. Treated with second abx with brief relief. Another episode in September, saw Dr Lea-- horrible experience --told allergy and TMJ. Feels numbness inside right earCT sinus trace left sphenoid thickening and DNSHad audio but still has persistent tinnitus right side she is on another antibiotic for nasal congestion despite the recent CT scan being basically normal. BLAIR FOUNTAIN MD [address] [place] [address], [place], [address], [facility] - [facility] 12/05/2024 14:40:52 OBGyn Episode No OBEpisode recorded.
--- OUTSIDE RECORDS SUMMARY | 2025-05-11 07:26 | XMS_ITS | Patient Health Record ---
Author Organization [facility] Address [address] [place] [address] Care Team Providers Care It Service Delivery Manager Name Role Phone Mine Chen MD Primary [...] Problem Status W/U Status Risk Notes Problem 999666500 Right upper quad rant pain (R10.11) Active confirmed Problem 514347270 Gastroesophageal reflux disease, unspecified whether esophagitis present (K21.9) Active confirmed Problem 860791541 History of cholecystectomy (Z90.49) Active confirmed Plan Of Treatment No Information Insurance Providers Payer Name Payer Address Payer Phone Subscriber Number Group Number Insured Name Patient Relationship to Insured Coverage Start Date Coverage End Date [address] [address] [id number] AYE BROWN Self - patient is the insured Medical (General) History Medical History History ICD Code Anxiety/depression Eczema Surgical History Surgery Date(Month/Year) ingrown toenail 1999 wisdom teeth 2002 gallbladder 2020 Cervical cerclage
[2025-05-11 07:28] VITALS: BP 110/70; PULSE 95; RESP 16; TEMP 36.9; O2SAT 98; BMI 31.5
== END 2025-05-11 08:10 | disposition home or self-care (01) ==
PROVIDERS: PCP Internal Medicine; Visit Provider Physician Assistant
DX: R50.9 Fever, unspecified (principal)

== ENCOUNTER 2025-05-11 07:23 | Outpatient (REF) | payer BC, SELFPAY ==
[2025-05-12 09:07] LABS: Chlamydia pneumoniae PCR Not Detected (Not Detect.); Coronavirus 229E PCR Not Detected (Not Detect.); Coronavirus HKU1 PCR Not Detected (Not Detect.); Coronavirus NL63 PCR Not Detected (Not Detect.); Coronavirus OC43 PCR Not Detected (Not Detect.); RSV PCR Not Detected (Not Detect.); Rhino/Enterovirus PCR Not Detected (Not Detect.)
[2025-05-12 09:12] LABS: Influenza A H1 PCR Not Detected (Not Detect.); Influenza A H1-2009 PCR Not Detected (Not Detect.); Influenza A H3 PCR Not Detected (Not Detect.); SARS-CoV-2 PCR Not Detected (Not Detect.)
== END 2025-05-11 07:24 | disposition home or self-care (01) ==
LOC: HO.LNP 07:23
PROVIDERS: PCP Internal Medicine; Visit Provider Physician Assistant
DX: J06.9 Acute upper respiratory infection, unspecified (principal); R50.9 Fever, unspecified; Z87.891 Personal history of nicotine dependence
CPT/HCPCS: 87633

== ENCOUNTER 2025-05-14 07:21 | Outpatient (AMB) | payer BC, SELFPAY ==
--- OUTSIDE RECORDS SUMMARY | 2025-05-14 07:23 | XMS_ITS | Patient Health Record ---
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 Name Role Phone Mine Chen MD Primary Care Provider Agustin Martins Jr Unavailable [phone] 2 Allergies Allergen (clinical drug ingredient) Drug/Non Drug [...] Problem Status W/U Status Risk Notes Problem [id number] Right upper quad rant pain (R10.11) Active confirmed Problem [id number] Gastroesophageal reflux disease, unspecified whether esophagitis present (K21.9) Active confirmed Problem [id number] History of cholecystectomy (Z90.49) Active confirmed Plan Of Treatment No Information Insurance Providers Payer Name Payer Address Payer Phone Subscriber Number Group Number Insured Name Patient Relationship to Insured Coverage Start Date Coverage End Date [address] [id number] AYE BROWN Self - patient is the insured Medical (General) History Medical History History ICD Code Anxiety/depression Eczema Surgical History Surgery Date(Month/Year) ingrown toenail 1999 wisdom teeth 2002 gallbladder 2020 Cervical cerclage
[2025-05-14 07:25] VITALS: BP 110/80; PULSE 88; RESP 17; TEMP 36.9; O2SAT 95; BMI 31.7
--- NOTE | 2025-05-14 07:25 | AM.OFFWIN_ITS ---
Intake Vital Signs 05/14/25 07:25 Height 6 ft Weight 234 lb BMI 31.7 BP 110/80 Blood Pressure Location Rt brachial Position Sitting Respiration 17 Pulse 88 Pulse Source Pulse Oximeter Temp 98.5 F Temp Source Oral Pulse Oximetry (%) 95 Oxygen Delivery Method Room Air Intake Visit Reasons: EP Fevers, throat pain, aches, nausea Intake Note: Pt is here today c/o fever, bodyaches and nausea no improvement Patient Tobacco Use Status: Former Tobacco user Allergies No Known Allergies (No Known Allergies*) Allergy (Verified 05/14/25 07:25) HPI HPI Comments History of Present Illness Details 40 y/o Female patient who presents to [facility] walk in clinic with c/o URI symptoms. Pt c/o Dry cough, Nasal/chest congestion, generalized body aches, Headaches and fevers. Reports that symptoms started last week Wednesday (05/08). She was recently seen here on Wednesday (05/11) for similar symptoms. Respiratory Panel was negative then and her PE unremarkable. She has been taking OTC remedies with no much relief. Reports Fevers at 99 to 100.1 Ibuprofen helps lower the fevers but comes back. Denies Nausea, vomiting, Diarrhea, and abdominal pain. Denies urinary or vaginal symptoms. [facility] Medical History (Updated 05/14/25 @ 07:37 by Olamide Breaux NP) Acute respiratory disease Encounter for removal and reinsertion of intrauterine contraceptive device (IUD) Family history of breast cancer Family history of ovarian cancer COVID-19 vaccine series completed Environmental allergies Cervical cancer screening Eczema Gallstones depression Depression with anxiety Surgical History Hx of cholecystectomy History of wisdom tooth extraction No pertinent past surgical history Family History Father Bladder cancer Cancer of prostate Substance use disorder Mother Breast cancer, Onset Age: 47 Sister Cervical cancer Maternal Grandmother Ovarian cancer Social History Household Members Other:: , 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, 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, 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 Housing: Apartment Are you a primary childcare teacher to a significant other at home: No Do you presently have visiting nurse or other home services: No Alcohol intake: current Alcohol intake frequency: a few times a month Comment: abdomne Patient Tobacco Use Status: Former Tobacco user Tobacco use type: Cigarette Cigarette Packs Per Day: 0.25 Cigarettes Per Day: 6 Years Smoked: 20+ e-Cigarette/Vaping Use: Never Used service: No Current occupational status: employed Sexual orientation: Straight/Heterosexual Gender identity: Female Cognitive needs: No Hearing needs: No Vision needs: No Female Reproductive History Menstrual Age of Menarche: 9 Review of Systems Const All systems reviewed & are unremarkable except as noted in HPI and below Physical Exam Vital Signs: Last Vital Signs Temp 98.5 F 05/14/25 07:25 Pulse 88 05/14/25 07:25 Resp 17 05/14/25 07:25 BP 110/80 05/14/25 07:25 Pulse Ox 95 05/14/25 07:25 Oxygen Delivery Method Room Air 05/14/25 07:25 BMI result Body Mass Index 31.7 Const General: no acute distress Nutritional Appearance: overweight Orientation/consciousness: patient oriented x3 HEENT Head: Yes normocephalic Ears: external ears normal and TM abnormal bulging bilateral and with fluid behind the TM bilateral General nose exam: Normal external nose present and No nasal discharge present Face and sinus: Yes sinuses nontender Mouth: moist mucous membranes Throat: Yes uvula midline Resp Effort & Inspection: normal respiratory effort, able to speak in complete sentences, no audible wheezes and no cough Auscultation: clear to auscultation bilaterally, no crackles, no rales, no rhonchi and no wheezes Cardio Heart sounds: S1 normal heart sound present and S2 normal heart sound present Neuro General: patient oriented x3 Assessment & Plan Assessment & Plan (1) Acute respiratory disease: Code(s): J06.9 - Acute upper respiratory infection, unspecified Plan: Ordered another Respiratory Panel PE today unremarkable. Ordered Z-pach on Hold pending the results of Respiratory Panel. Acetaminophen and Ibuprofen for pain relief. Rest and hydrate well with warm fluids. Orders: Orders Resp Pathogen Panel - [facility] [place] Today J06.9 - Acute upper respiratory infection, unspecified Medications: New dextromethorphan-guaifenesin 5-100 mg/5 mL (Robitussin Cough-Chest Congestion DM) 10 mL PO Q4-8H PRN 500 mL 0RF cough J06.9 - Acute upper respiratory infection, unspecified pseudoephedrine HCl ER (Sudafed 12 Hour) 120 mg PO Q12H 20 tabs 0RF J06.9 - Acute upper respiratory infection, unspecified azithromycin 500 mg PO DAILY 3 tabs 0RF 3 days J06.9 - Acute upper respiratory infection, unspecified Coding Level of Care Code Est Pt Level 4 (83703) Diagnoses Acute respiratory disease J06.9 Time Spent (min) 20
== END 2025-05-14 07:40 | disposition home or self-care (01) ==
PROVIDERS: PCP Internal Medicine; Visit Provider Nurse Practitioner Family
DX: J06.9 Acute upper respiratory infection, unspecified (principal)

== ENCOUNTER 2025-05-14 07:21 | Outpatient (REF) | payer BC, SELFPAY ==
[2025-05-14 12:11] LABS: Chlamydia pneumoniae PCR Not Detected (Not Detect.); Coronavirus 229E PCR Not Detected (Not Detect.); Coronavirus HKU1 PCR Not Detected (Not Detect.); Coronavirus NL63 PCR Not Detected (Not Detect.); Coronavirus OC43 PCR Not Detected (Not Detect.); RSV PCR Not Detected (Not Detect.); Rhino/Enterovirus PCR Not Detected (Not Detect.)
[2025-05-14 12:33] LABS: Influenza A H1 PCR Not Detected (Not Detect.); Influenza A H1-2009 PCR Not Detected (Not Detect.); Influenza A H3 PCR Not Detected (Not Detect.); SARS-CoV-2 PCR Not Detected (Not Detect.)
== END 2025-05-14 07:22 | disposition home or self-care (01) ==
LOC: HO.LAB 07:21
PROVIDERS: PCP Internal Medicine; Visit Provider Nurse Practitioner Family
DX: J06.9 Acute upper respiratory infection, unspecified (principal); R50.9 Fever, unspecified; R07.0 Pain in throat; R11.0 Nausea; R05.9 Cough, unspecified; R09.89 Other specified symptoms and signs involving the circulatory and respiratory systems; R09.81 Nasal congestion; R51.9 Headache, unspecified; Z87.891 Personal history of nicotine dependence
CPT/HCPCS: 87633